=== PATIENT | female | born 1930 | race Caucasian/White ===

== ENCOUNTER 2021-07-31 18:09 | Inpatient (IN) ==
--- NOTE | 2021-07-31 19:11 | DR.DIZZY ---
HPI Time seen Time Seen by Provider: 07/31/21 19:04 PCP Primary Care Physician: sanjay clemens HPI Comment HPI Comment: Pt with ams as below; currently awake, alert, able to answer questions but was unable to get out of car by herself upon arrival; normally ambulatory with walker but has progressively worsened over the past three days and unable to get around by herself; reportedly fell earlier in the week which was unwitnessed but was found on the floor by bed the next morning; did well initially but slowly became less able to care for self at which time she was taken to [facility]; upon review of records from [facility], sodium 127 with bs wnl at discharge; doctor discussed NHP with family who chose not to do this; daughter took her to [facility] and she ate "just a little" but was still confused, so she brought her here. Complaint Chief Complaint:: AROUND 0900 THIS MORNING PT UNRESPONSIVE AND BLOOD SUGAR 65, EMS CALLED AND DOSE OF DEXTROSE SYRING GIVEN,WENT TO [facility] AND [facility] 31/2 HOURS OF NO REASSESSMENT, GRANDDAUGHTER ASK FOR BLOOD SUGAR RECHECK, IT WAS THEN 47, DOSE OF DEXTROSE GIVEN.WHEN BS ASSESSED IT WAS 47. ER DISCHARGED HER WITH HYPERTENSION.PT IS WEAK, NO REAL RESPONSIVENESS, SHE HAS BEEN RECENTLY TREATED FOR UTI SINCE MONDAY ON SULFAMETHOXAZOLE AND HAS SOME CONGESTION COVID-19 Coronavirus risk:travel/contact w/high risk person: No Source History Provided: Family Member Mode of Arrival Mode of Arrival: Wheelchair Timing Onset of Chief Complaint: 07/31/21 Context Stroke Symptoms: Acute confusion and Weakness of limb PMH PMH Past Medical History: Yes Past Medical History: Arthritis, Diabetes, Dyslipidemia, GERD and Hypertension Past Surgical History: No Family History History of Family Medical Conditions: Yes Family Medical History: Diabetes Mellitus, [place], Coronary Artery Disease and Hypertension Social History Do you use any recreational Drugs:: No Lives With: Family Lives Where: Home Travel Risk Coronavirus risk:travel/contact w/high risk person: No Infectious screening In the last 2 months have you had wt loss of >10#?: NO Have you had fever, night sweats or hemotysis?: No Have you traveled outside the country in the last 6 months?: No Isolation: Standard ROS Review of Systems Constitutional: No Symptoms Reported Eyes: No Symptoms Reported ENTM: No Symptoms Reported Respiratoy: No Symptoms Reported Cardiovascular: No Symptoms Reported Gastrointestinal/Abdominal: No Symptoms Reported Genitourinary: No Symptoms Reported Neurological: No Symptoms Reported Integumentary: No Symptoms Reported Hematologic/Lymphatic: No Symptoms Reported Endocrine: No Symptoms Reported PE Vital Signs Vitals: Temperature 98.1 F Pulse Rate 76 Respiratory Rate 18 Blood Pressure [Right Arm] 193/88 Blood Pressure 187/77 O2 Sat by Pulse Oximetry 98 General Limitations: No Limitations General Appearance: Alert and In No Apparent Distress Head Head Exam: Normal Inspection Eyes Eye exam: Normal Appearance ENT ENT Exam: Normal Exam, Normal Oropharynx and Normal External Ear Exam Neck Neck Exam: Normal Inspection and Full ROM Chest Chest Inspection: Normal Inspection Respiratory Respiratory Exam: Normal Lung Sounds Bilat Cardiovascular Cardiovascular Exam: Regular Rate and Normal Rhythm Abdominal Exam Abdominal Exam: Normal Inspection, Normal Bowel Sounds and Soft Rectal Rectal Exam: Deferred Extremeties Extremities Exam: Normal Inspection and Full ROM Back Back Exam: Normal Inspection and Full ROM Neurologic Neurological Exam: Alert and Oriented X3 (knows name, and "doctor's office") Psychiatric Psychiatric Exam: Normal Affect and Normal Mood Skin Skin Exam: Warm, Dry, Intact and Normal Color COURSE Reevaluation 1st: Improved (improved somewhat) 2nd: Worsened (confused about birthdate, location) Education/Counseling Education/Counseling: Family Educated On: Diagnosis and Prognosis ROR Labs Reviewed Laboratory Results Reviewed?: Yes Result Diagrams: 07/31/21 19:18 07/31/21 19:18 Laboratory: Sodium 127 mmol/L (136-145) L 07/31/21 19:18 Corrected Sodium 128 mmol/L (136-145) L 07/31/21 19:18 Potassium 4.7 mmol/L (3.5-5.1) 07/31/21 19:18 Chloride 92 mmol/L (98-107) L 07/31/21 19:18 Carbon Dioxide 26.4 mmol/L (21-32) 07/31/21 19:18 BUN 16 mg/dL (7-18) 07/31/21 19:18 Creatinine 1.28 mg/dL (0.55-1.02) H 07/31/21 19:18 Est GFR (MDRD) Af Amer 50 (>60) L 07/31/21 19:18 Est GFR (MDRD) Non-Af 42 (>60) L 07/31/21 19:18 Glucose 147 mg/dL (65-99) H 07/31/21 19:18 Calcium 8.5 mg/dL (8.5-10.1) 07/31/21 19:18 Creatine Kinase 363 Units/L (26-192) H 07/31/21 19:18 XRAY XRAY Interpreted by: Radiologist X-ray Results: brain ct: 1. Chronic microvascular ischemic disease, but no discernible acute infarction seen. 2. Severe atherosclerosis of the intracranial ICAs and vertebral arteries is seen. 3. No skull fracture, intracranial hemorrhage, mass lesion, midline shift, or hydrocephalus seen. 4. 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 5. Acute sphenoid and bilateral maxillary sinusitis marked by small air-fluid levels. Opioid Opioid Risk Tool Age (Doc box if 16-45): No History of Preadolescent Sexual Abuse: No Total: 0 Total Score Risk Category: Low Risk Copyright: [facility] predicting aberrant behaviors Diagnosis Discharge Problem: Acute hyponatremia, Weakness, Essential hypertension AMS (altered mental status) Qualifiers: Altered mental status type: disorientation Qualified Code(s): R41.0 - Disorientation, unspecified Pansinusitis Qualifiers: Chronicity: acute Recurrence: not specified as recurrent Qualified Code(s): J01.40 - Acute pansinusitis, unspecified Instructions Forms: [facility] Social Distancing
[2021-07-31 19:32] LABS: CALCIUM 8.5 mg/dL (8.5-10.1); CARBON DIOXIDE 26.4 mmol/L (21-32); CREATININE 1.28 mg/dL (0.55-1.02)
[2021-07-31] MEDS ORDERED: NS 1,000 ML IV 0 ML ONE (20:13)
[2021-07-31] MEDS ORDERED: NS 1,000 ML IV 1,000 ML ONE (20:17)
--- NOTE | 2021-07-31 20:30 | CT ---
EXAM: HEAD CT WITHOUT INTRAVENOUS CONTRASTHISTORY: Confusion. Congestion. Diabetes.TECHNIQUE: Spiral axial CT images are obtained through the brain without the administration of intravenous contrast. Additional sagittal and coronal reformatted images are reconstructed.DOSIMETRY: Total DLP 1364.9 mGycm; CTDI 70.8 mGyCOMPARISON: None available.FINDINGS:There are parenchymal lucencies within the periventricular white matter tracks of the centrum semiovale, consistent with chronic sequela of atherosclerotic microvascular ischemic disease. Severe atherosclerosis of the intracranial ICAs and vertebral arteries is seen.There is diffuse cerebral cortical atrophy. The centrum semiovale, basal ganglia, cerebellum, and brainstem are otherwise grossly unremarkable for a noncontrast CT scan. There is no acute intracranial hemorrhage, gross acute infarction, mass lesion, midline shift, or hydrocephalus seen. No extra-axial mass or abnormal fluid collection noted.The calvarium is intact. The middle ear cavities and mastoid air cells are clear. There is chronic tompkins paranasal sinusitis marked by mild mucoperiosteal thickening. There is acute sphenoid and bilateral maxillary sinusitis marked by small air-fluid levels.IMPRESSION:1. Chronic microvascular ischemic disease, but no discernible acute infarction seen.2. Severe atherosclerosis of the intracranial ICAs and vertebral arteries is seen.3. No skull fracture, intracranial hemorrhage, mass lesion, midline shift, or hydrocephalus seen.4. Chronic tompkins paranasal sinusitis marked by mild mucoperiosteal thickening.5. Acute sphenoid and bilateral maxillary sinusitis marked by small air-fluid levels.Electronically signed by: Rebekah Sanders (Jul 31, 2021 20:29:42)
[2021-07-31] MEDS ORDERED: ROCEPHIN VIAL 1 GRAM 1 G in NS 100 ML IV + SPIKE MINIBAG* 100 ML IV ONE (20:55)
[2021-07-31] MEDS ORDERED: ROCEPHIN 1 GRAM IV PREMIX 1 G/50 ML IV.SOLN. IV ONE (20:57)
[2021-07-31] MEDS ORDERED: NS 1,000 ML IV 1,000 ML IV SCH ×2 (21:00→22:00)
[2021-07-31] MEDS ORDERED: ROCEPHIN VIAL 1 GRAM 1 G in NS 100 ML IV + SPIKE MINIBAG* 100 ML IV SCH (21:03)
[2021-07-31] MEDS: NS 1,000 ML IV 1,000 ML IV SCH (23:46)
--- NOTE | 2021-08-01 01:05 | RAD ---
STUDY: FRONTAL VIEW CHESTCOMPARISON: NoneHISTORY: COVID-10+, DIMINISHED BREATH SOUNDSFINDINGS:Diffuse alveolar airspace disease is seen in the bilateral upper and left lower lung zone.The heart size is within normal limits.The mediastinum is unremarkable.There is no evidence of pleural effusion or gross pneumothorax.The trachea is midline.IMPRESSION:Diffuse alveolar airspace disease is seen in the bilateral upper and left lower lung zone. Given the patient's history of testing positive for COVID-19, this could represent COVID pneumonia.Electronically signed by: Christophe Walters (Aug 01, 2021 01:03:39)
[2021-08-01] MEDS ORDERED: GLUTOSE 15 GEL ORAL PO ONE (05:24)
[2021-08-01] MEDS ORDERED: GLUTOSE 15 GEL ORAL PO PRN (05:27)
[2021-08-01 06:18] LABS: BASOPHILS % (AUTO) 0.5 % (0.2-1.0); HEMATOCRIT 28.8 % (36.0-47.0); HEMOGLOBIN 10.4 g/dL (12.0-16.0); LYMPHOCYTES # (AUTO) 3.7 X10^3/uL (1.3-2.9); LYMPHOCYTES % (AUTO) 63.6 % (21.0-51.0); MEAN CORPUSCULAR HEMOGLOBIN 33.7 pg (27.0-34.0); MEAN CORPUSCULAR HGB CONC 36.2 g/dL (33.0-35.0); MEAN CORPUSCULAR VOLUME 93.1 fL (80.0-100.0); MEAN PLATELET VOLUME 7.6 fL (7.4-11.0); MONOCYTES # (AUTO) 0.5 x10^3/uL (0.3-0.8); MONOCYTES % (AUTO) 9.3 % (0.0-13.0); NEUTROPHILS # (AUTO) 1.5 x10^3/uL (2.2-4.8); NEUTROPHILS % (AUTO) 26.6 % (42.0-75.0); PLATELET COUNT 126 X10^3/uL (150.0-450.0); RED CELL DISTRIBUTION WIDTH 14.2 % (11.6-16.5); WHITE BLOOD COUNT 5.8 X10^3/uL (3.6-10.0)
[2021-08-01 06:33] LABS: ALANINE AMINOTRANSFERASE 23 Units/L (12-78); ALBUMIN 2.9 g/dL (3.4-5.0); ALKALINE PHOSPHATASE 54 Units/L (46-116); ASPARTATE AMINO TRANSFERASE 52 Units/L (15-37); BLOOD UREA NITROGEN 15 mg/dL (7-18); CALCIUM 7.9 mg/dL (8.5-10.1); CARBON DIOXIDE 24.6 mmol/L (21-32); CHLORIDE 96 mmol/L (98-107); COR CA(FOR HYPOALB) 8.8 mg/dL (8.5-10.1); CREATININE 1.21 mg/dL (0.55-1.02); SODIUM 130 mmol/L (136-145); TOTAL PROTEIN 5.3 g/dL (6.4-8.2); eGFR NON BLACK RACES 45 (>60)
[2021-08-01] MEDS: NS 1,000 ML IV 1,000 ML IV SCH ×2 (07:33→08:34)
[2021-08-01 07:37] LABS: PLATELET MORPHOLOGY COMMENT NORMAL (NORMAL); SMUDGE CELLS 2+
[2021-08-01] MEDS: BROVANA IN SCH ×2 (09:25→21:27)
[2021-08-01] MEDS: PULMICORT NEB TX 0.5 MG NEB SCH ×2 (09:25→21:27)
[2021-08-01] MEDS ORDERED: CALCIUM 300 MG PO SCH (10:15)
[2021-08-01] MEDS: LOPRESSOR TAB 50 MG PO SCH ×2 (10:38→20:22)
[2021-08-01] MEDS: MIRAPEX TAB 0.25 MG PO SCH ×3 (10:39→21:02)
[2021-08-01] MEDS: D5 NS 1,000 ML IV 1,000 ML IV SCH (11:21)
[2021-08-01] MEDS: ASCORBIC ACID INJ MULTI-DOSE VIAL 1,500 MG in NS 50 ML IV 50 ML IV SCH ×3 (12:30→20:21)
[2021-08-01] MEDS: ZOSYN VIAL 3.375 GRAMS 3.375 G in NS 100 ML IV + SPIKE MINIBAG* 100 ML IV SCH ×3 (13:16→21:02)
[2021-08-01] MEDS: SOLU-Medrol 40 MG VIAL IVP SCH ×2 (13:16→20:21)
[2021-08-01] MEDS: PEPCID 20 MG IV PREMIX* 20 MG/50 ML BAG IV SCH (13:16)
[2021-08-01] MEDS: DUONEB 0.5 MG/3 MG (3 mL) NEB SCH ×2 (14:00→21:27)
--- NOTE | 2021-08-01 19:29 | DR.H&P ---
H&P History & Physical for Day of: H&P Date: 08/01/21 Chief Complaint Chief Complaint: AMS, weakness Allergies Allergies Allergy/AdvReac Type Severity Reaction Status Date / Time No Known Drug Allergies Allergy Unverified 07/31/21 19:05 History of Present Illness History of Present Illness: Ms Mesa is a 89y/o female with a PMH of DM, HTN, HLD presented with AMS and weakness. Patient was seen in [place] [facility] earlier today for similar Sx and noted to have low Na. Patient had a fall few days prior and since then has been feeling weak and trouble ambulating. On admission, patient was not able to ambulate on her own and was dehydrated with Na 127 and glucose 65. Her CK was elevated at 363. CT-head did not show any acute stroke or bleed except tompkins sinusitis. Patient also tested positive for COVID-19. She is not requiring any supplemental O2. CXR consistent with COVID pneumonia. Patient was not able to swallow liquids this morning and has been unable to clear her throat. Patient was alert this morning and able to follow simple commands. Labs and imaging reviewed Plan: Continue COVID-19 protocol and ICU care. start D5 NS at 75cc/hr, change Rocephin to Zosyn. Add Solumedrol and Pepcid. Keep NPO. RT to suck secretions. Add Vitamin C. Speech evaluation in the AM. Will review records from [facility]. Monitor AM labs/imaging. Time spent for clinical assessment, reviewing labs/imaging, physical exam, decision making and documentation greater than 45 mins. Past Medical History Past Medical History: Arthritis, Diabetes, Dyslipidemia, GERD and Hypertension Family History Family Medical History: Cancer Social History Does patient currently use any type of tobacco product: No Have you used tobacco products in the last 12 months: No Type of Tobacco Use: None Does any household member use tobacco: No Alcohol Use: None Drug Use: None Prescription drug monitoring program results: PDMP reviewed and no concerns identified Medications Home Medications: No Known Drug Allergies Allergy (Unverified 07/31/21 19:05) CONTINUE taking the following medications amlodipine 5 mg PO QHS 07/31/21 [History] calcium 300 mg PO DAILY 07/31/21 [History] ferrous sulfate 325 mg PO DAILY 07/31/21 [History] lisinopril 40 mg PO QHS 07/31/21 [History] metoprolol tartrate 100 mg PO BID 07/31/21 [History] pramipexole 0.25 mg PO TID 07/31/21 [History] rivastigmine tartrate 3 mg PO BID 07/31/21 [History] simvastatin 20 mg PO QHS 07/31/21 [History] sulfamethoxazole-trimethoprim 1 tab PO BID 07/31/21 [History] Labs Result Diagrams: 08/01/21 05:51 08/01/21 05:51 Labs: Laboratory WBC 5.8 X10^3/uL (3.6-10.0) 08/01/21 05:51 RBC 3.10 X10^6/uL (3.5-5.4) L 08/01/21 05:51 Hgb 10.4 g/dL (12.0-16.0) L 08/01/21 05:51 Hct 28.8 % (36.0-47.0) L 08/01/21 05:51 MCV 93.1 fL (80.0-100.0) 08/01/21 05:51 MCH 33.7 pg (27.0-34.0) 08/01/21 05:51 MCHC 36.2 g/dL (33.0-35.0) H 08/01/21 05:51 RDW 14.2 % (11.6-16.5) 08/01/21 05:51 Plt Count 126 X10^3/uL (150.0-450.0) L 08/01/21 05:51 Plt Count Comment Decreased (ADEQUATE) A 08/01/21 05:51 MPV 7.6 fL (7.4-11.0) 08/01/21 05:51 Neut % (Auto) 26.6 % (42.0-75.0) L 08/01/21 05:51 Lymph % (Auto) 63.6 % (21.0-51.0) H 08/01/21 05:51 [place] % (Auto) 9.3 % (0.0-13.0) 08/01/21 05:51 Eos % (Auto) 0.0 % (0.9-2.9) L 08/01/21 05:51 Baso % (Auto) 0.5 % (0.2-1.0) 08/01/21 05:51 Neut # (Auto) 1.5 x10^3/uL (2.2-4.8) L 08/01/21 05:51 Lymph # (Auto) 3.7 X10^3/uL (1.3-2.9) H 08/01/21 05:51 [place] # (Auto) 0.5 x10^3/uL (0.3-0.8) 08/01/21 05:51 Eos # (Auto) 0.0 x10^3/uL (0.0-0.2) 08/01/21 05:51 Baso # (Auto) 0.0 X10^3/uL (0.0-0.1) 08/01/21 05:51 Absolute Nucleated RBC 0.1 /100WBC 08/01/21 05:51 Total Counted 100 08/01/21 05:51 Neutrophils % (Manual) 30 % (39-76) L 08/01/21 05:51 Lymphocytes % (Manual) 62 % (13-43) H 08/01/21 05:51 Monocytes % (Manual) 8 % (4-9) 08/01/21 05:51 Smudge Cells 2+ A 08/01/21 05:51 Plt Morphology Comment Normal (NORMAL) 08/01/21 05:51 RBC Morphology Normal (NORMAL) 08/01/21 05:51 Sodium 130 mmol/L (136-145) L 08/01/21 05:51 Corrected Sodium TNP 08/01/21 05:51 Potassium 4.5 mmol/L (3.5-5.1) 08/01/21 05:51 Chloride 96 mmol/L (98-107) L 08/01/21 05:51 Carbon Dioxide 24.6 mmol/L (21-32) 08/01/21 05:51 BUN 15 mg/dL (7-18) 08/01/21 05:51 Creatinine 1.21 mg/dL (0.55-1.02) H 08/01/21 05:51 Est GFR (MDRD) Af Amer 54 (>60) L 08/01/21 05:51 Est GFR (MDRD) Non-Af 45 (>60) L 08/01/21 05:51 Glucose 79 mg/dL (65-99) 08/01/21 05:51 POC Glucose (mg/dL) 146 mg/dL (65-99) H 08/01/21 16:46 Calcium 7.9 mg/dL (8.5-10.1) L 08/01/21 05:51 Corrected Calcium 8.8 mg/dL (8.5-10.1) 08/01/21 05:51 Total Bilirubin 0.50 mg/dL (0.2-1.0) 08/01/21 05:51 AST 52 Units/L (15-37) H 08/01/21 05:51 ALT 23 Units/L (12-78) 08/01/21 05:51 Alkaline Phosphatase 54 Units/L (46-116) 08/01/21 05:51 Creatine Kinase 363 Units/L (26-192) H 07/31/21 19:18 Total Protein 5.3 g/dL (6.4-8.2) L 08/01/21 05:51 Albumin 2.9 g/dL (3.4-5.0) L 08/01/21 05:51 Globulin 2.4 g/dL (2.5-4.5) L 08/01/21 05:51 Albumin/Globulin Ratio 1.2 Ratio (1.1-2.1) 08/01/21 05:51 SARS CoV-2 RNA Rapid MARA Positive (NEGATIVE) A 07/31/21 21:10 Review of Systems Constitutional: Weakness and Malaise Eyes: No Symptoms Reported ENT: No Symptoms Reported Respiratory: Cough Cardiovascular: No Symptoms Reported Gastrointestinal: No Symptoms Reported Genitourinary: No Symptoms Reported Musculoskeletal: No Symptoms Reported Skin: No Symptoms Reported Neurological: Weakness, Incoordination and Confusion Physical Exam Vital Signs: Temperature 98.8 F Pulse Rate [Left Radial] 79 Pulse Rate 89 Respiratory Rate 28 Blood Pressure [Left Arm] 159/69 Blood Pressure [Right Arm] 156/68 Blood Pressure 134/60 O2 Sat by Pulse Oximetry 93 Oriented: Person and Place Eyes: Normal Ear: Normal Nose: Normal Throat: Dry and Other (gurgling sound ) Respiratory: Diminished Throughout Cardiovascular: Normal Auscultation: Bowel Sounds: Normal Palpation: Normal Tenderness: Normal Skin: Decreased [place] Psychiatric: Normal Mood Description: Calm Affect: Normal Speech Pattern: Unclear and Delayed Assessment/Plan (1) Acute hyponatremia: Status: Acute (2) AMS (altered mental status): Qualifiers: Altered mental status type: disorientation Qualified Code(s): R41.0 - Disorientation, unspecified Status: Acute (3) Weakness: Status: Acute (4) COVID-19: Status: Acute (5) Pansinusitis: Qualifiers: Chronicity: acute Recurrence: not specified as recurrent Qualified Code(s): J01.40 - Acute pansinusitis, unspecified Status: Acute (6) Hypoglycemia: Status: Acute (7) Dysphagia: Qualifiers: Dysphagia type: unspecified Qualified Code(s): R13.10 - Dysphagia, unspecified Status: Acute (8) Fall: Qualifiers: Encounter type: sequela Qualified Code(s): W19.XXXS - Unspecified fall, sequela Status: Acute (9) Dehydration: Status: Acute Review H&P Reviewed: Yes Patient was examined?: Yes
[2021-08-01] MEDS: EXELON PO SCH (20:21)
[2021-08-01] MEDS: ZOCOR TAB 20 MG PO SCH (20:21)
[2021-08-01] MEDS: NORVASC TAB 5 MG PO SCH (20:22)
[2021-08-01] MEDS: LOVENOX INJ 30 MG SYR SC SCH (20:22)
[2021-08-01] MEDS ORDERED: ROCEPHIN VIAL 1 GRAM 1 G in NS 100 ML IV + SPIKE MINIBAG* 100 ML IV SCH (21:00)
[2021-08-02] MEDS: D5 NS 1,000 ML IV 1,000 ML IV SCH ×2 (00:03→13:19)
[2021-08-02] MEDS: ASCORBIC ACID INJ MULTI-DOSE VIAL 1,500 MG in NS 50 ML IV 50 ML IV SCH ×4 (03:14→20:29)
[2021-08-02] MEDS: MIRAPEX TAB 0.25 MG PO SCH ×3 (05:05→21:30)
[2021-08-02] MEDS: ZOSYN VIAL 3.375 GRAMS 3.375 G in NS 100 ML IV + SPIKE MINIBAG* 100 ML IV SCH ×3 (05:05→21:30)
[2021-08-02 05:09] LABS: BASOPHILS % (AUTO) 0.1 % (0.2-1.0); HEMATOCRIT 29.3 % (36.0-47.0); HEMOGLOBIN 10.3 g/dL (12.0-16.0); LYMPHOCYTES % (AUTO) 36.8 % (21.0-51.0); MEAN CORPUSCULAR HEMOGLOBIN 33.3 pg (27.0-34.0); MEAN CORPUSCULAR HGB CONC 35.2 g/dL (33.0-35.0); MEAN CORPUSCULAR VOLUME 94.6 fL (80.0-100.0); MEAN PLATELET VOLUME 8.2 fL (7.4-11.0); MONOCYTES # (AUTO) 0.1 x10^3/uL (0.3-0.8); NEUTROPHILS # (AUTO) 1.5 x10^3/uL (2.2-4.8); NEUTROPHILS % (AUTO) 59.1 % (42.0-75.0); PLATELET COUNT 125 X10^3/uL (150.0-450.0); RED BLOOD COUNT 3.09 X10^6/uL (3.5-5.4); RED CELL DISTRIBUTION WIDTH 14.1 % (11.6-16.5); WHITE BLOOD COUNT 2.6 X10^3/uL (3.6-10.0)
[2021-08-02 05:15] LABS: BILIRUBIN,URINE NEGATIVE (NEGATIVE); BLOOD/HEMOGLOBIN,URINE NEGATIVE (NEGATIVE); GLUCOSE, URINE 3+ (NEGATIVE); KETONES,URINE 1+ (NEGATIVE); LEUKOCYTE ESTERASE ,URINE NEGATIVE (NEGATIVE); NITRITES,URINE NEGATIVE (NEGATIVE); PROTEIN,URINE 1+ (NEGATIVE); UROBILINOGEN,URINE NORMAL (NORMAL)
[2021-08-02] MEDS: DUONEB 0.5 MG/3 MG (3 mL) NEB SCH ×3 (05:18→20:20)
[2021-08-02 05:22] LABS: AMORPHOUS SEDIMENT,UR 1+ /HPF (NEGATIVE); APPEARANCE,URINE CLEAR (CLEAR); BACTERIA,URINE TRACE /HPF (NEGATIVE); COLOR,URINE PALE YELLOW (YELLOW); RBC,URINE NONE SEEN /HPF (0-3); SQUAMOUS EPITHELIAL CELL,UR RARE /HPF (NEGATIVE)
[2021-08-02 05:24] LABS: ALBUMIN 2.8 g/dL (3.4-5.0); CALCIUM 8.1 mg/dL (8.5-10.1); CARBON DIOXIDE 21.2 mmol/L (21-32); COR CA(FOR HYPOALB) 9.1 mg/dL (8.5-10.1); CREATININE 1.42 mg/dL (0.55-1.02); TOTAL PROTEIN 5.4 g/dL (6.4-8.2)
[2021-08-02] MEDS: NovoLIN R (or HumuLIN R) SUBCUT PRN ×4 (05:54→20:31)
[2021-08-02] MEDS: EXELON PO SCH ×2 (08:02→20:29)
[2021-08-02] MEDS: CITRACAL + VITAMIN D PO SCH (08:02)
[2021-08-02] MEDS: ASPIRIN EC 81 MG PO SCH (08:02)
[2021-08-02] MEDS: SOLU-Medrol 40 MG VIAL IVP SCH (08:03)
[2021-08-02] MEDS: LOVENOX INJ 30 MG SYR SC SCH ×2 (08:03→08:24)
[2021-08-02] MEDS: PEPCID 20 MG IV PREMIX* 20 MG/50 ML BAG IV SCH (08:03)
[2021-08-02] MEDS: FERROUS GLUCONATE PO SCH (08:03)
[2021-08-02] MEDS: LOPRESSOR TAB 50 MG PO SCH ×2 (08:03→20:30)
[2021-08-02] MEDS: BROVANA IN SCH ×2 (08:15→20:20)
[2021-08-02] MEDS: PULMICORT NEB TX 0.5 MG NEB SCH ×2 (08:15→20:20)
--- NOTE | 2021-08-02 14:50 | PCM.PROG ---
Progress Note Progress Note for Day of Date of Exam: 08/02/21 Subjective Subjective: Patient seen at bedside, no events overnight. Patient is more awake and alert this morning. She is able to answer direct questions and follow simple commands. Her FSBG was 405 this AM, SSI insulin was added. She still has intermittent confusion. Patient is on room air. Labs reviewed Plan: Speech therapy pending, add PT/OT. Will decrease D5 NS to 50cc/hr, DC solumedrol. Continue IV Zosyn and nebs. Patient remains on room air. Continue ICU protocol for COVID-19. Continue Vitamin C. Continue SSI. Monitor AM labs/imaging. Time spent for clinical assessment, reviewing labs/imaging, physical exam, decision making and documentation greater than 45 mins. Past Medical Family Social History Past Med/Fam/Surg Hx: No changes since H&P Allergies: Allergies No Known Drug Allergies Allergy (Unverified 07/31/21 19:05) Review of Systems ROS: No change since H&P Vital Signs and I&O's Vital Signs: Temperature 98.3 F Pulse Rate [Left Radial] 79 Pulse Rate 110 Respiratory Rate 43 Blood Pressure [Left Arm] 159/69 Blood Pressure [Right Arm] 156/68 Blood Pressure 138/102 O2 Sat by Pulse Oximetry 97 Intake and Output: Intake & Output 07/30/21 07/31/21 08/01/21 08/02/21 23:59 23:59 23:59 23:59 Intake Total 300 / 300 3113 / 3113 700 / 700 Balance 300 / 300 3113 / 3113 700 / 700 Physical Exam Oriented: Person and Place Eyes: Normal Ear: Normal Nose: Normal Throat: Normal Respiratory: Generalized and Diminished Cardiovascular: Normal Auscultation: Bowel Sounds: Normal Tenderness: Normal Skin: Decreased Turgur Psychiatric: Normal Mood Description: Calm Affect: Normal Speech Pattern: Delayed Laboratory and Diagnostics Result Diagrams: 08/02/21 04:11 08/02/21 04:11 Labs: Laboratory WBC 2.6 X10^3/uL (3.6-10.0) L 08/02/21 04:11 RBC 3.09 X10^6/uL (3.5-5.4) L 08/02/21 04:11 Hgb 10.3 g/dL (12.0-16.0) L 08/02/21 04:11 Hct 29.3 % (36.0-47.0) L 08/02/21 04:11 MCV 94.6 fL (80.0-100.0) 08/02/21 04:11 MCH 33.3 pg (27.0-34.0) 08/02/21 04:11 MCHC 35.2 g/dL (33.0-35.0) H 08/02/21 04:11 RDW 14.1 % (11.6-16.5) 08/02/21 04:11 Plt Count 125 X10^3/uL (150.0-450.0) L 08/02/21 04:11 Plt Count Comment Decreased (ADEQUATE) A 08/01/21 05:51 MPV 8.2 fL (7.4-11.0) 08/02/21 04:11 Neut % (Auto) 59.1 % (42.0-75.0) 08/02/21 04:11 Lymph % (Auto) 36.8 % (21.0-51.0) 08/02/21 04:11 [place] % (Auto) 4.0 % (0.0-13.0) 08/02/21 04:11 Eos % (Auto) 0.0 % (0.9-2.9) L 08/02/21 04:11 Baso % (Auto) 0.1 % (0.2-1.0) L 08/02/21 04:11 Neut # (Auto) 1.5 x10^3/uL (2.2-4.8) L 08/02/21 04:11 Lymph # (Auto) 1.0 X10^3/uL (1.3-2.9) L 08/02/21 04:11 [place] # (Auto) 0.1 x10^3/uL (0.3-0.8) L 08/02/21 04:11 Eos # (Auto) 0.0 x10^3/uL (0.0-0.2) 08/02/21 04:11 Baso # (Auto) 0.0 X10^3/uL (0.0-0.1) 08/02/21 04:11 Absolute Nucleated RBC 0.2 /100WBC 08/02/21 04:11 Total Counted 100 08/01/21 05:51 Neutrophils % (Manual) 30 % (39-76) L 08/01/21 05:51 Lymphocytes % (Manual) 62 % (13-43) H 08/01/21 05:51 Monocytes % (Manual) 8 % (4-9) 08/01/21 05:51 Smudge Cells 2+ A 08/01/21 05:51 Plt Morphology Comment Normal (NORMAL) 08/01/21 05:51 RBC Morphology Normal (NORMAL) 08/01/21 05:51 Sodium 133 mmol/L (136-145) L 08/02/21 04:11 Corrected Sodium 140 mmol/L (136-145) 08/02/21 04:11 Potassium 4.5 mmol/L (3.5-5.1) 08/02/21 04:11 Chloride 99 mmol/L (98-107) 08/02/21 04:11 Carbon Dioxide 21.2 mmol/L (21-32) 08/02/21 04:11 BUN 23 mg/dL (7-18) H 08/02/21 04:11 Creatinine 1.42 mg/dL (0.55-1.02) H 08/02/21 04:11 Est GFR (MDRD) Af Amer 45 (>60) L 08/02/21 04:11 Est GFR (MDRD) Non-Af 37 (>60) L 08/02/21 04:11 Glucose 405 mg/dL (65-99) H 08/02/21 04:11 POC Glucose (mg/dL) 306 mg/dL (65-99) H 08/02/21 11:36 Calcium 8.1 mg/dL (8.5-10.1) L 08/02/21 04:11 Corrected Calcium 9.1 mg/dL (8.5-10.1) 08/02/21 04:11 Total Bilirubin 0.60 mg/dL (0.2-1.0) 08/02/21 04:11 AST 48 Units/L (15-37) H 08/02/21 04:11 ALT 25 Units/L (12-78) 08/02/21 04:11 Alkaline Phosphatase 53 Units/L (46-116) 08/02/21 04:11 Creatine Kinase 363 Units/L (26-192) H 07/31/21 19:18 Total Protein 5.4 g/dL (6.4-8.2) L 08/02/21 04:11 Albumin 2.8 g/dL (3.4-5.0) L 08/02/21 04:11 Globulin 2.6 g/dL (2.5-4.5) 08/02/21 04:11 Albumin/Globulin Ratio 1.1 Ratio (1.1-2.1) 08/02/21 04:11 Specimen Type Catherized urine 08/02/21 05:00 Urine Color Pale yellow (YELLOW) 08/02/21 05:00 Urine Appearance Clear (CLEAR) 08/02/21 05:00 Urine pH 5.0 (5.0 - 8.0) 08/02/21 05:00 Ur Specific [place] 1.020 (1.000-1.030) 08/02/21 05:00 Urine Protein 1+ (NEGATIVE) 08/02/21 05:00 Urine Glucose (UA) 3+ (NEGATIVE) 08/02/21 05:00 Urine Ketones 1+ (NEGATIVE) 08/02/21 05:00 Urine Occult Blood Negative (NEGATIVE) 08/02/21 05:00 Urine Nitrite Negative (NEGATIVE) 08/02/21 05:00 Urine Bilirubin Negative (NEGATIVE) 08/02/21 05:00 Urine Urobilinogen Normal (NORMAL) 08/02/21 05:00 Ur Leukocyte Esterase Negative (NEGATIVE) 08/02/21 05:00 Urine RBC None seen /HPF (0-3) 08/02/21 05:00 Urine WBC None seen /HPF (0-5) 08/02/21 05:00 Ur Squamous Epith Cells Rare /HPF (NEGATIVE) 08/02/21 05:00 Amorphous Sediment 1+ /HPF (NEGATIVE) 08/02/21 05:00 Urine Bacteria Trace /HPF (NEGATIVE) 08/02/21 05:00 Ur Culture Indicated? No/not indicated 08/02/21 05:00 SARS CoV-2 RNA Rapid MARA Positive (NEGATIVE) A 07/31/21 21:10 Plan (1) Acute hyponatremia: Status: Acute (2) AMS (altered mental status): Status: Acute Qualifiers: Altered mental status type: disorientation Qualified Code(s): R41.0 - Disorientation, unspecified (3) Weakness: Status: Acute (4) COVID-19: Status: Acute (5) Pansinusitis: Status: Acute Qualifiers: Chronicity: acute Recurrence: not specified as recurrent Qualified Code(s): J01.40 - Acute pansinusitis, unspecified (6) Hypoglycemia: Status: Acute (7) Dysphagia: Status: Acute Qualifiers: Dysphagia type: unspecified Qualified Code(s): R13.10 - Dysphagia, unspecified (8) Fall: Status: Acute Qualifiers: Encounter type: sequela Qualified Code(s): W19.XXXS - Unspecified fall, sequela (9) Dehydration: Status: Acute
[2021-08-02] MEDS ORDERED: NS 50 ML IV 50 ML IV ONE (19:33)
[2021-08-02] MEDS: SNACK - Diabetic Appropriate PO SCH (20:20)
[2021-08-02] MEDS: NORVASC TAB 5 MG PO SCH (20:31)
[2021-08-02] MEDS: ZOCOR TAB 20 MG PO SCH (20:31)
[2021-08-03] MEDS ORDERED: RESTORIL CAP 15 MG PO PRN (00:28)
[2021-08-03] MEDS ORDERED: RESTORIL CAP 15 MG PO ONE (00:30)
[2021-08-03] MEDS: D5 NS 1,000 ML IV 1,000 ML IV SCH ×3 (02:22→22:35)
[2021-08-03] MEDS: ASCORBIC ACID INJ MULTI-DOSE VIAL 1,500 MG in NS 50 ML IV 50 ML IV SCH ×4 (04:00→20:14)
[2021-08-03 04:46] LABS: BLOOD UREA NITROGEN 20 mg/dL (7-18); CALCIUM 8.8 mg/dL (8.5-10.1); CARBON DIOXIDE 24.3 mmol/L (21-32); CHLORIDE 104 mmol/L (98-107); CREATININE 1.21 mg/dL (0.55-1.02); SODIUM 140 mmol/L (136-145); eGFR NON BLACK RACES 45 (>60)
[2021-08-03 04:58] LABS: BASOPHILS % (AUTO) 0.1 % (0.2-1.0); HEMATOCRIT 33.8 % (36.0-47.0); HEMOGLOBIN 11.8 g/dL (12.0-16.0); LYMPHOCYTES # (AUTO) 1.2 X10^3/uL (1.3-2.9); LYMPHOCYTES % (AUTO) 14.9 % (21.0-51.0); MEAN CORPUSCULAR HEMOGLOBIN 32.6 pg (27.0-34.0); MEAN CORPUSCULAR HGB CONC 35.1 g/dL (33.0-35.0); MEAN CORPUSCULAR VOLUME 92.9 fL (80.0-100.0); MEAN PLATELET VOLUME 7.5 fL (7.4-11.0); MONOCYTES # (AUTO) 0.4 x10^3/uL (0.3-0.8); MONOCYTES % (AUTO) 4.8 % (0.0-13.0); NEUTROPHILS # (AUTO) 6.3 x10^3/uL (2.2-4.8); NEUTROPHILS % (AUTO) 80.2 % (42.0-75.0); PLATELET COUNT 181 X10^3/uL (150.0-450.0); RED BLOOD COUNT 3.64 X10^6/uL (3.5-5.4); RED CELL DISTRIBUTION WIDTH 14.2 % (11.6-16.5); WHITE BLOOD COUNT 7.8 X10^3/uL (3.6-10.0)
[2021-08-03] MEDS: DUONEB 0.5 MG/3 MG (3 mL) NEB SCH ×3 (05:00→20:43)
[2021-08-03] MEDS: MIRAPEX TAB 0.25 MG PO SCH ×3 (05:36→22:34)
[2021-08-03] MEDS: ZOSYN VIAL 3.375 GRAMS 3.375 G in NS 100 ML IV + SPIKE MINIBAG* 100 ML IV SCH ×3 (05:37→22:33)
[2021-08-03] MEDS: ASPIRIN EC 81 MG PO SCH (09:15)
[2021-08-03] MEDS: LOPRESSOR TAB 50 MG PO SCH ×2 (09:15→20:17)
[2021-08-03] MEDS: CITRACAL + VITAMIN D PO SCH (09:15)
[2021-08-03] MEDS: EXELON PO SCH ×2 (09:15→20:16)
[2021-08-03] MEDS: PEPCID 20 MG IV PREMIX* 20 MG/50 ML BAG IV SCH (09:15)
[2021-08-03] MEDS: FERROUS GLUCONATE PO SCH (09:15)
[2021-08-03] MEDS: PULMICORT NEB TX 0.5 MG NEB SCH ×2 (10:18→20:43)
[2021-08-03] MEDS: BROVANA IN SCH ×2 (10:18→20:43)
[2021-08-03] MEDS: LOVENOX INJ 30 MG SYR SC SCH (11:29)
[2021-08-03] MEDS: NovoLIN R (or HumuLIN R) SUBCUT PRN ×2 (11:51→16:50)
--- NOTE | 2021-08-03 11:56 | PCM.PROG ---
Progress Note Progress Note for Day of Date of Exam: 08/03/21 Subjective Subjective: Patient seen at bedside, no events overnight. She is awake wand oriented to self. Patient able to answer some questions and follow very simple commands. She was seen by Speech therapy and recommended pureed diet. She did work with PT/OT yesterday. CM has been in touch with patient's son and looking into rehab placement. Due to patient being positive for COVID, she would have to continue with isolation for a total of 10 days and needs neg test prior to [facility] to [facility]. Patient is still weak and not able to ambulate. She remains on room air. Labs reviewed Plan: continue pureed diet. MRI brain pending. Continue D5 NS 50cc/hr. Continue IV Zosyn and nebs. Patient remains on room air. Continue ICU protocol for COVID- 19. Continue Vitamin C. Continue SSI. Continue PT/OT. Monitor AM labs/imaging. Time spent for clinical assessment, reviewing labs/imaging, physical exam, decision making and documentation greater than 45 mins. Past Medical Family Social History Past Med/Fam/Surg Hx: No changes since H&P Allergies: Allergies No Known Drug Allergies Allergy (Unverified 07/31/21 19:05) Review of Systems ROS: No change since H&P Vital Signs and I&O's Vital Signs: Temperature 99.4 F Pulse Rate [Left Radial] 79 Pulse Rate 99 Respiratory Rate 38 Blood Pressure [Left Arm] 159/69 Blood Pressure [Right Arm] 156/68 Blood Pressure 161/68 O2 Sat by Pulse Oximetry 97 Intake and Output: Intake & Output 07/31/21 08/01/21 08/02/21 08/03/21 23:59 23:59 23:59 23:59 Intake Total 300 / 300 3113 / 3113 1946 521 / 521 Balance 300 / 300 3113 / 3113 1946 521 / 521 Physical Exam Oriented: Person and Place Eyes: Normal Ear: Normal Nose: Normal Throat: Normal Respiratory: Generalized and Diminished Cardiovascular: Normal Auscultation: Bowel Sounds: Normal Tenderness: Normal Skin: Decreased Turgur Psychiatric: Normal Mood Description: Calm Affect: Normal Speech Pattern: Clear and Delayed Laboratory and Diagnostics Result Diagrams: 08/03/21 04:04 08/03/21 04:04 Labs: Laboratory WBC 7.8 X10^3/uL (3.6-10.0) 08/03/21 04:04 RBC 3.64 X10^6/uL (3.5-5.4) 08/03/21 04:04 Hgb 11.8 g/dL (12.0-16.0) L 08/03/21 04:04 Hct 33.8 % (36.0-47.0) L 08/03/21 04:04 MCV 92.9 fL (80.0-100.0) 08/03/21 04:04 MCH 32.6 pg (27.0-34.0) 08/03/21 04:04 MCHC 35.1 g/dL (33.0-35.0) H 08/03/21 04:04 RDW 14.2 % (11.6-16.5) 08/03/21 04:04 Plt Count 181 X10^3/uL (150.0-450.0) 08/03/21 04:04 Plt Count Comment Decreased (ADEQUATE) A 08/01/21 05:51 MPV 7.5 fL (7.4-11.0) 08/03/21 04:04 Neut % (Auto) 80.2 % (42.0-75.0) H 08/03/21 04:04 Lymph % (Auto) 14.9 % (21.0-51.0) L 08/03/21 04:04 [place] % (Auto) 4.8 % (0.0-13.0) 08/03/21 04:04 Eos % (Auto) 0.0 % (0.9-2.9) L 08/03/21 04:04 Baso % (Auto) 0.1 % (0.2-1.0) L 08/03/21 04:04 Neut # (Auto) 6.3 x10^3/uL (2.2-4.8) H 08/03/21 04:04 Lymph # (Auto) 1.2 X10^3/uL (1.3-2.9) L 08/03/21 04:04 [place] # (Auto) 0.4 x10^3/uL (0.3-0.8) 08/03/21 04:04 Eos # (Auto) 0.0 x10^3/uL (0.0-0.2) 08/03/21 04:04 Baso # (Auto) 0.0 X10^3/uL (0.0-0.1) 08/03/21 04:04 Absolute Nucleated RBC 0.1 /100WBC 08/03/21 04:04 Total Counted 100 08/01/21 05:51 Neutrophils % (Manual) 30 % (39-76) L 08/01/21 05:51 Lymphocytes % (Manual) 62 % (13-43) H 08/01/21 05:51 Monocytes % (Manual) 8 % (4-9) 08/01/21 05:51 Smudge Cells 2+ A 08/01/21 05:51 Plt Morphology Comment Normal (NORMAL) 08/01/21 05:51 RBC Morphology Normal (NORMAL) 08/01/21 05:51 Sodium 140 mmol/L (136-145) 08/03/21 04:04 Corrected Sodium TNP 08/03/21 04:04 Potassium 4.0 mmol/L (3.5-5.1) 08/03/21 04:04 Chloride 104 mmol/L (98-107) 08/03/21 04:04 Carbon Dioxide 24.3 mmol/L (21-32) 08/03/21 04:04 BUN 20 mg/dL (7-18) H 08/03/21 04:04 Creatinine 1.21 mg/dL (0.55-1.02) H 08/03/21 04:04 Est GFR (MDRD) Af Amer 54 (>60) L 08/03/21 04:04 Est GFR (MDRD) Non-Af 45 (>60) L 08/03/21 04:04 Glucose 90 mg/dL (65-99) 08/03/21 04:04 POC Glucose (mg/dL) 309 mg/dL (65-99) H 08/03/21 11:23 Calcium 8.8 mg/dL (8.5-10.1) 08/03/21 04:04 Corrected Calcium 9.1 mg/dL (8.5-10.1) 08/02/21 04:11 Total Bilirubin 0.60 mg/dL (0.2-1.0) 08/02/21 04:11 AST 48 Units/L (15-37) H 08/02/21 04:11 ALT 25 Units/L (12-78) 08/02/21 04:11 Alkaline Phosphatase 53 Units/L (46-116) 08/02/21 04:11 Creatine Kinase 363 Units/L (26-192) H 07/31/21 19:18 Total Protein 5.4 g/dL (6.4-8.2) L 08/02/21 04:11 Albumin 2.8 g/dL (3.4-5.0) L 08/02/21 04:11 Globulin 2.6 g/dL (2.5-4.5) 08/02/21 04:11 Albumin/Globulin Ratio 1.1 Ratio (1.1-2.1) 08/02/21 04:11 Specimen Type Catherized urine 08/02/21 05:00 Urine Color Pale yellow (YELLOW) 08/02/21 05:00 Urine Appearance Clear (CLEAR) 08/02/21 05:00 Urine pH 5.0 (5.0 - 8.0) 08/02/21 05:00 Ur Specific [place] 1.020 (1.000-1.030) 08/02/21 05:00 Urine Protein 1+ (NEGATIVE) 08/02/21 05:00 Urine Glucose (UA) 3+ (NEGATIVE) 08/02/21 05:00 Urine Ketones 1+ (NEGATIVE) 08/02/21 05:00 Urine Occult Blood Negative (NEGATIVE) 08/02/21 05:00 Urine Nitrite Negative (NEGATIVE) 08/02/21 05:00 Urine Bilirubin Negative (NEGATIVE) 08/02/21 05:00 Urine Urobilinogen Normal (NORMAL) 08/02/21 05:00 Ur Leukocyte Esterase Negative (NEGATIVE) 08/02/21 05:00 Urine RBC None seen /HPF (0-3) 08/02/21 05:00 Urine WBC None seen /HPF (0-5) 08/02/21 05:00 Ur Squamous Epith Cells Rare /HPF (NEGATIVE) 08/02/21 05:00 Amorphous Sediment 1+ /HPF (NEGATIVE) 08/02/21 05:00 Urine Bacteria Trace /HPF (NEGATIVE) 08/02/21 05:00 Ur Culture Indicated? No/not indicated 08/02/21 05:00 SARS CoV-2 RNA Rapid MARA Positive (NEGATIVE) A 07/31/21 21:10 Plan (1) Acute hyponatremia: Status: Acute (2) AMS (altered mental status): Status: Acute Qualifiers: Altered mental status type: disorientation Qualified Code(s): R41.0 - Disorientation, unspecified (3) Weakness: Status: Acute (4) COVID-19: Status: Acute (5) Pansinusitis: Status: Acute Qualifiers: Chronicity: acute Recurrence: not specified as recurrent Qualified Code(s): J01.40 - Acute pansinusitis, unspecified (6) Hypoglycemia: Status: Acute (7) Dysphagia: Status: Acute Qualifiers: Dysphagia type: unspecified Qualified Code(s): R13.10 - Dysphagia, unspecified (8) Fall: Status: Acute Qualifiers: Encounter type: sequela Qualified Code(s): W19.XXXS - Unspecified fall, sequela (9) Dehydration: Status: Acute
[2021-08-03] MEDS ORDERED: TYLENOL SUPP 650 MG ONE (19:43)
[2021-08-03] MEDS: TYLENOL SUPP 650 MG PR PRN (19:55)
[2021-08-03] MEDS ORDERED: APRESOLINE INJ 20 MG VIAL ONE (20:02)
[2021-08-03] MEDS: APRESOLINE INJ 20 MG VIAL IVP PRN (20:13)
[2021-08-03] MEDS: ZOCOR TAB 20 MG PO SCH (20:17)
[2021-08-03] MEDS: NORVASC TAB 5 MG PO SCH (20:18)
[2021-08-03] MEDS: SNACK - Diabetic Appropriate PO SCH (20:18)
[2021-08-04] MEDS: ASCORBIC ACID INJ MULTI-DOSE VIAL 1,500 MG in NS 50 ML IV 50 ML IV SCH ×4 (03:42→20:28)
[2021-08-04] MEDS: D5 NS 1,000 ML IV 1,000 ML IV SCH ×2 (04:30→17:41)
[2021-08-04 04:56] LABS: BASOPHILS % (AUTO) 0.1 % (0.2-1.0); HEMATOCRIT 28.4 % (36.0-47.0); LYMPHOCYTES # (AUTO) 1.3 X10^3/uL (1.3-2.9); LYMPHOCYTES % (AUTO) 28.7 % (21.0-51.0); MEAN CORPUSCULAR HEMOGLOBIN 32.9 pg (27.0-34.0); MEAN CORPUSCULAR HGB CONC 35.1 g/dL (33.0-35.0); MEAN CORPUSCULAR VOLUME 93.7 fL (80.0-100.0); MEAN PLATELET VOLUME 7.8 fL (7.4-11.0); MONOCYTES # (AUTO) 0.2 x10^3/uL (0.3-0.8); MONOCYTES % (AUTO) 4.2 % (0.0-13.0); NEUTROPHILS # (AUTO) 3.1 x10^3/uL (2.2-4.8); PLATELET COUNT 141 X10^3/uL (150.0-450.0); RED BLOOD COUNT 3.04 X10^6/uL (3.5-5.4); RED CELL DISTRIBUTION WIDTH 14.1 % (11.6-16.5); WHITE BLOOD COUNT 4.7 X10^3/uL (3.6-10.0)
[2021-08-04 05:05] LABS: ALBUMIN 2.6 g/dL (3.4-5.0); CALCIUM 8.3 mg/dL (8.5-10.1); COR CA(FOR HYPOALB) 9.4 mg/dL (8.5-10.1); CREATININE 1.24 mg/dL (0.55-1.02); TOTAL PROTEIN 5.3 g/dL (6.4-8.2)
[2021-08-04] MEDS: APRESOLINE INJ 20 MG VIAL IVP PRN ×2 (05:25→17:35)
[2021-08-04] MEDS: MIRAPEX TAB 0.25 MG PO SCH ×3 (05:37→21:12)
[2021-08-04] MEDS: TYLENOL SUPP 650 MG PR PRN ×2 (05:37→22:09)
[2021-08-04] MEDS: ZOSYN VIAL 3.375 GRAMS 3.375 G in NS 100 ML IV + SPIKE MINIBAG* 100 ML IV SCH ×3 (05:37→21:12)
[2021-08-04] MEDS: DUONEB 0.5 MG/3 MG (3 mL) NEB SCH ×2 (06:00→13:45)
[2021-08-04] MEDS: NovoLIN R (or HumuLIN R) SUBCUT PRN ×4 (06:08→20:31)
[2021-08-04] MEDS: ASPIRIN EC 81 MG PO SCH (08:30)
[2021-08-04] MEDS: LOPRESSOR TAB 50 MG PO SCH ×2 (08:30→20:29)
[2021-08-04] MEDS: CITRACAL + VITAMIN D PO SCH (08:30)
[2021-08-04] MEDS: FERROUS GLUCONATE PO SCH (08:30)
[2021-08-04] MEDS: EXELON PO SCH ×2 (08:51→20:30)
[2021-08-04] MEDS: LOVENOX INJ 30 MG SYR SC SCH (08:51)
--- NOTE | 2021-08-04 08:54 | MRI ---
HISTORYAMS, UNSTEADY GAIT, NEGATIVE CT HEADSTUDYMR brain without IV contrastCOMPARISONCT 07/31/2021TECHNIQUEMultiplanar multi-sequence MRI of the brain was obtained without administration of IV contrast.FINDINGSMotion limits the study. The cerebellar tonsils are normally positioned. Pituitary gland is normal in size. [Prominent diffuse volume loss in the brain with compensatory enlargement of the ventricular system.]No areas of restricted diffusion. There are moderate chronic small vessel ischemic changes in the supratentorial white matter which are confluent in the periventricular regions. This appearance is similar to CT. [No evidence of intracranial hemorrhage.]Mild mucosal thickening is seen in the paranasal sinuses.IMPRESSIONNo evidence of recent CVA.Moderate chronic small vessel ischemic changes are seen.Prominent diffuse volume loss is seen in the brain, greater than the small vessel ischemic changes. Consider possible dementia.Electronically signed by: Rico Shepherd (Aug 04, 2021 08:52:03)
--- NOTE | 2021-08-04 09:17 | RAD ---
HISTORYFollow-up COVID-19STUDYChest AP [id number]/2021FINDINGSThe examination is underpenetrated. The heart is mildly enlarged. No definite congestive heart failure is noted. No definite alveolar infiltrates are identified. No areas of consolidation are identified. No pleural effusion or pneumothorax is identified. Bony thorax is unremarkable.IMPRESSIONCardiomegaly without definite congestive heart failureNo definite infiltratesElectronically signed by: SONIA WADSWORTH (Aug 04, 2021 09:16:01)
[2021-08-04] MEDS: PULMICORT NEB TX 0.5 MG NEB SCH ×2 (09:30→20:33)
[2021-08-04] MEDS: BROVANA IN SCH ×2 (09:30→20:33)
[2021-08-04] MEDS: PEPCID 20 MG IV PREMIX* 20 MG/50 ML BAG IV SCH (09:55)
--- NOTE | 2021-08-04 12:51 | PCM.PROG ---
Progress Note Progress Note for Day of Date of Exam: 08/04/21 Subjective Subjective: Patient seen at bedside, overnight patient did have a temp of 103, she was given Tylenol suppository and fever did resolve. Blood Cx were sent. She appeared to be lethargic/drowsy last night and could not take her PO medications so IV hydralazine was given. She had been given Temazepam last night which likely made her drowsy. She is awake and alert to self this AM. She can follow very simple direct commands but does need redirection. She is oriented to herself. Patient remains on room air. Labs reviewed Plan: Continue ICU COVID-19 protocol. Follow MRI results. Order CXR. Continue D5 NS 50cc/hr. Continue IV Zosyn and nebs. Patient remains on room air. Follow cultures. DC Temazepam. Continue Vitamin C. Continue SSI. Start nystatin swish and swallow prn. Continue PT/OT. Monitor AM labs/imaging. Time spent for clinical assessment, reviewing labs/imaging, physical exam, de cision making and documentation greater than 45 mins. Past Medical Family Social History Past Med/Fam/Surg Hx: No changes since H&P Allergies: Allergies No Known Drug Allergies Allergy (Unverified 07/31/21 19:05) Review of Systems ROS: No change since H&P Vital Signs and I&O's Vital Signs: Temperature 100.8 F Pulse Rate [Left Radial] 79 Pulse Rate 86 Respiratory Rate 22 Blood Pressure [Left Arm] 159/69 Blood Pressure [Right Arm] 156/68 Blood Pressure 150/65 O2 Sat by Pulse Oximetry 97 Intake and Output: Intake & Output 08/01/21 08/02/21 08/03/21 08/04/21 23:59 23:59 23:59 23:59 Intake Total 3113 / 3113 1946 / 1946 275 / 275 Balance 3113 / 3113 1946 / 1946 275 / 275 Physical Exam Oriented: Person Eyes: Normal Ear: Normal Nose: Normal Throat: Dry and Other (oral thrush noted ) Respiratory: Generalized and Diminished Cardiovascular: Normal Auscultation: Bowel Sounds: Normal Tenderness: Normal Skin: Decreased Turgur Psychiatric: Normal Mood Description: Calm Affect: Normal Speech Pattern: Clear Laboratory and Diagnostics Result Diagrams: 08/04/21 04:30 08/04/21 04:30 Labs: Laboratory WBC 4.7 X10^3/uL (3.6-10.0) 08/04/21 04:30 RBC 3.04 X10^6/uL (3.5-5.4) L 08/04/21 04:30 Hgb 10.0 g/dL (12.0-16.0) L 08/04/21 04:30 Hct 28.4 % (36.0-47.0) L 08/04/21 04:30 MCV 93.7 fL (80.0-100.0) 08/04/21 04:30 MCH 32.9 pg (27.0-34.0) 08/04/21 04:30 MCHC 35.1 g/dL (33.0-35.0) H 08/04/21 04:30 RDW 14.1 % (11.6-16.5) 08/04/21 04:30 Plt Count 141 X10^3/uL (150.0-450.0) L 08/04/21 04:30 Plt Count Comment Decreased (ADEQUATE) A 08/01/21 05:51 MPV 7.8 fL (7.4-11.0) 08/04/21 04:30 Neut % (Auto) 67.0 % (42.0-75.0) 08/04/21 04:30 Lymph % (Auto) 28.7 % (21.0-51.0) 08/04/21 04:30 [place] % (Auto) 4.2 % (0.0-13.0) 08/04/21 04:30 Eos % (Auto) 0.0 % (0.9-2.9) L 08/04/21 04:30 Baso % (Auto) 0.1 % (0.2-1.0) L 08/04/21 04:30 Neut # (Auto) 3.1 x10^3/uL (2.2-4.8) 08/04/21 04:30 Lymph # (Auto) 1.3 X10^3/uL (1.3-2.9) 08/04/21 04:30 [place] # (Auto) 0.2 x10^3/uL (0.3-0.8) L 08/04/21 04:30 Eos # (Auto) 0.0 x10^3/uL (0.0-0.2) 08/04/21 04:30 Baso # (Auto) 0.0 X10^3/uL (0.0-0.1) 08/04/21 04:30 Absolute Nucleated RBC 0.0 /100WBC 08/04/21 04:30 Total Counted 100 08/01/21 05:51 Neutrophils % (Manual) 30 % (39-76) L 08/01/21 05:51 Lymphocytes % (Manual) 62 % (13-43) H 08/01/21 05:51 Monocytes % (Manual) 8 % (4-9) 08/01/21 05:51 Smudge Cells 2+ A 08/01/21 05:51 Plt Morphology Comment Normal (NORMAL) 08/01/21 05:51 RBC Morphology Normal (NORMAL) 08/01/21 05:51 Sodium 136 mmol/L (136-145) 08/04/21 04:30 Corrected Sodium 140 mmol/L (136-145) 08/04/21 04:30 Potassium 3.6 mmol/L (3.5-5.1) 08/04/21 04:30 Chloride 104 mmol/L (98-107) 08/04/21 04:30 Carbon Dioxide 26.0 mmol/L (21-32) 08/04/21 04:30 BUN 20 mg/dL (7-18) H 08/04/21 04:30 Creatinine 1.24 mg/dL (0.55-1.02) H 08/04/21 04:30 Est GFR (MDRD) Af Amer 52 (>60) L 08/04/21 04:30 Est GFR (MDRD) Non-Af 43 (>60) L 08/04/21 04:30 Glucose 273 mg/dL (65-99) H 08/04/21 04:30 POC Glucose (mg/dL) 212 mg/dL (65-99) H 08/04/21 11:00 Calcium 8.3 mg/dL (8.5-10.1) L 08/04/21 04:30 Corrected Calcium 9.4 mg/dL (8.5-10.1) 08/04/21 04:30 Total Bilirubin 0.60 mg/dL (0.2-1.0) 08/04/21 04:30 AST 47 Units/L (15-37) H 08/04/21 04:30 ALT 28 Units/L (12-78) 08/04/21 04:30 Alkaline Phosphatase 44 Units/L (46-116) L 08/04/21 04:30 Creatine Kinase 363 Units/L (26-192) H 07/31/21 19:18 Total Protein 5.3 g/dL (6.4-8.2) L 08/04/21 04:30 Albumin 2.6 g/dL (3.4-5.0) L 08/04/21 04:30 Globulin 2.7 g/dL (2.5-4.5) 08/04/21 04:30 Albumin/Globulin Ratio 1.0 Ratio (1.1-2.1) L 08/04/21 04:30 Specimen Type Catherized urine 08/02/21 05:00 Urine Color Pale yellow (YELLOW) 08/02/21 05:00 Urine Appearance Clear (CLEAR) 08/02/21 05:00 Urine pH 5.0 (5.0 - 8.0) 08/02/21 05:00 Ur Specific [place] 1.020 (1.000-1.030) 08/02/21 05:00 Urine Protein 1+ (NEGATIVE) 08/02/21 05:00 Urine Glucose (UA) 3+ (NEGATIVE) 08/02/21 05:00 Urine Ketones 1+ (NEGATIVE) 08/02/21 05:00 Urine Occult Blood Negative (NEGATIVE) 08/02/21 05:00 Urine Nitrite Negative (NEGATIVE) 08/02/21 05:00 Urine Bilirubin Negative (NEGATIVE) 08/02/21 05:00 Urine Urobilinogen Normal (NORMAL) 08/02/21 05:00 Ur Leukocyte Esterase Negative (NEGATIVE) 08/02/21 05:00 Urine RBC None seen /HPF (0-3) 08/02/21 05:00 Urine WBC None seen /HPF (0-5) 08/02/21 05:00 Ur Squamous Epith Cells Rare /HPF (NEGATIVE) 08/02/21 05:00 Amorphous Sediment 1+ /HPF (NEGATIVE) 08/02/21 05:00 Urine Bacteria Trace /HPF (NEGATIVE) 08/02/21 05:00 Ur Culture Indicated? No/not indicated 08/02/21 05:00 SARS CoV-2 RNA Rapid MARA Positive (NEGATIVE) A 07/31/21 21:10 Plan (1) Dementia: Status: Acute Qualifiers: Dementia behavioral disturbance: without behavioral disturbance Dementia type: unspecified type Qualified Code(s): F03.90 - Unspecified dementia without behavioral disturbance (2) Acute hyponatremia: Status: Acute (3) AMS (altered mental status): Status: Acute Qualifiers: Altered mental status type: disorientation Qualified Code(s): R41.0 - Disorientation, unspecified (4) Weakness: Status: Acute (5) COVID-19: Status: Acute (6) Pansinusitis: Status: Acute Qualifiers: Chronicity: acute Recurrence: not specified as recurrent Qualified Code(s): J01.40 - Acute pansinusitis, unspecified (7) Hypoglycemia: Status: Acute (8) Dysphagia: Status: Acute Qualifiers: Dysphagia type: unspecified Qualified Code(s): R13.10 - Dysphagia, unspecified (9) Fall: Status: Acute Qualifiers: Encounter type: sequela Qualified Code(s): W19.XXXS - Unspecified fall, sequela (10) Dehydration: Status: Acute
[2021-08-04] MEDS: SNACK - Diabetic Appropriate PO SCH (20:28)
[2021-08-04] MEDS: ZOCOR TAB 20 MG PO SCH (20:30)
[2021-08-04] MEDS: NORVASC TAB 5 MG PO SCH (20:31)
[2021-08-05] MEDS: ASCORBIC ACID INJ MULTI-DOSE VIAL 1,500 MG in NS 50 ML IV 50 ML IV SCH ×4 (02:59→21:00)
[2021-08-05 04:53] LABS: BASOPHILS % (AUTO) 0 % (0.2-1.0); HEMATOCRIT 27.6 % (36.0-47.0); HEMOGLOBIN 9.6 g/dL (12.0-16.0); LYMPHOCYTES # (AUTO) 1.1 X10^3/uL (1.3-2.9); LYMPHOCYTES % (AUTO) 25.8 % (21.0-51.0); MEAN CORPUSCULAR HEMOGLOBIN 32.8 pg (27.0-34.0); MEAN CORPUSCULAR VOLUME 93.9 fL (80.0-100.0); MEAN PLATELET VOLUME 7.6 fL (7.4-11.0); MONOCYTES # (AUTO) 0.1 x10^3/uL (0.3-0.8); MONOCYTES % (AUTO) 3.2 % (0.0-13.0); PLATELET COUNT 129 X10^3/uL (150.0-450.0); RED BLOOD COUNT 2.94 X10^6/uL (3.5-5.4); RED CELL DISTRIBUTION WIDTH 14.5 % (11.6-16.5); WHITE BLOOD COUNT 4.3 X10^3/uL (3.6-10.0)
[2021-08-05 05:05] LABS: ALBUMIN 2.5 g/dL (3.4-5.0); CALCIUM 8.2 mg/dL (8.5-10.1); CARBON DIOXIDE 23.2 mmol/L (21-32); COR CA(FOR HYPOALB) 9.4 mg/dL (8.5-10.1); CREATININE 1.14 mg/dL (0.55-1.02); TOTAL PROTEIN 5.2 g/dL (6.4-8.2)
[2021-08-05] MEDS: D5 NS 1,000 ML IV 1,000 ML IV SCH (05:29)
[2021-08-05] MEDS: MIRAPEX TAB 0.25 MG PO SCH ×3 (05:34→21:15)
[2021-08-05] MEDS: ZOSYN VIAL 3.375 GRAMS 3.375 G in NS 100 ML IV + SPIKE MINIBAG* 100 ML IV SCH ×3 (05:34→21:15)
[2021-08-05] MEDS: DUONEB 0.5 MG/3 MG (3 mL) NEB SCH ×3 (06:00→21:28)
[2021-08-05] MEDS ORDERED: POTASSIUM CHLORIDE LIQ 20 MEQ UDC PO PRN (08:07)
[2021-08-05] MEDS ORDERED: K-DUR TAB 20 MEQ PO PRN (08:07)
[2021-08-05] MEDS ORDERED: MICRO K EXTEN CAP 10 MEQ PO PRN (08:07)
[2021-08-05] MEDS ORDERED: POTASSIUM CHL 40 MEQ/NS 0.45% 500 ML IV PRN (08:07)
[2021-08-05] MEDS ORDERED: KLOR-CON PO PRN (08:07)
[2021-08-05] MEDS ORDERED: POTASSIUM CHL 60 MEQ/NS 0.45% 500 ML IV PRN (08:07)
[2021-08-05] MEDS ORDERED: ZOFRAN INJ 4 MG VIAL IVP PRN (08:52)
[2021-08-05] MEDS ORDERED: REMDESIVIR 200 MG in NS 100 ML IV 140 ML IV NR (08:52)
[2021-08-05] MEDS ORDERED: TYLENOL 325 MG TAB PO PRN (09:00)
[2021-08-05] MEDS: ZITHROMAX INJ 500 MG VIAL 500 MG in NS 250 ML IV 250 ML IV SCH ×2 (09:09)
[2021-08-05] MEDS: PULMICORT NEB TX 0.5 MG NEB SCH ×2 (09:18→21:28)
[2021-08-05] MEDS: SOLU-Medrol 40 MG VIAL IVP SCH ×2 (09:43→21:00)
[2021-08-05] MEDS: LOPRESSOR TAB 50 MG PO SCH ×2 (09:44→21:00)
[2021-08-05] MEDS: FERROUS GLUCONATE PO SCH (09:45)
[2021-08-05] MEDS: LOVENOX INJ 30 MG SYR SC SCH (09:46)
[2021-08-05] MEDS: CITRACAL + VITAMIN D PO SCH (09:46)
[2021-08-05] MEDS: ASPIRIN EC 81 MG PO SCH (09:46)
[2021-08-05] MEDS: EXELON PO SCH ×2 (09:46→21:00)
[2021-08-05] MEDS ORDERED: MORPHINE SULFATE INJ 2 MG INJ IVP ONE (10:25)
[2021-08-05] MEDS: BROVANA IN SCH ×2 (11:01→21:28)
[2021-08-05] MEDS: NovoLIN R (or HumuLIN R) SUBCUT PRN ×3 (11:20→23:57)
[2021-08-05] MEDS: PEPCID 20 MG IV PREMIX* 20 MG/50 ML BAG IV SCH (11:49)
--- NOTE | 2021-08-05 13:07 | PCM.PROG ---
Progress Note Progress Note for Day of Date of Exam: 08/05/21 Subjective Subjective: Patient seen at bedside, overnight she did have a fever, Tmax 102.7, this morning she is afebrile. She did receive Tylenol. She was also placed on 2l NC due to RR being elevated, sats remained above 92%. She is awake, oriented to self. She has some dry cough. She also has an episode of vomiting earlier. She is able to answer some very simple and direct questions. MRI-brain did not show any acute process, chronic changes suggestive of dementia. CXR did not show any infiltrates. Labs reviewed Plan: Continue ICU COVID-19 protocol. Wean O2 as tolerated to keep sats > 92%. Continue D5 NS 50cc/hr. Add zofran prn. Add morphine prn for air hunger. Continue IV Zosyn and nebs. Add Azithromycin. Start Remedisvir and Solumedrol. Follow cultures. Continue Vitamin C. Continue SSI. Continue nystatin swish and swallow prn. Replace K as per protocol. Continue pureed diet. Continue PT/OT. M onitor AM labs/imaging. Time spent for clinical assessment, reviewing labs/imaging, physical exam, decision making and documentation greater than 45 mins. Past Medical Family Social History Past Med/Fam/Surg Hx: No changes since H&P Allergies: Allergies No Known Drug Allergies Allergy (Unverified 07/31/21 19:05) Review of Systems ROS: No change since H&P Vital Signs and I&O's Vital Signs: Temperature 100.8 F Pulse Rate [Left Radial] 79 Pulse Rate 80 Respiratory Rate 25 Blood Pressure [Left Arm] 159/69 Blood Pressure [Right Arm] 156/68 Blood Pressure 169/72 O2 Sat by Pulse Oximetry 97 Intake and Output: Intake & Output 08/02/21 08/03/21 08/04/21 08/05/21 23:59 23:59 23:59 23:59 Intake Total 1946 / 1678 519 / 519 Output Total 800 / 800 Balance 1946 / 1678 -281 / -281 Physical Exam Oriented: Person Eyes: Normal Ear: Normal Nose: Normal Throat: Dry and Other (oral thrush noted ) Respiratory: Generalized and Diminished Cardiovascular: Normal Auscultation: Bowel Sounds: Normal Tenderness: Normal Skin: Decreased Turgur Psychiatric: Normal Mood Description: Calm Affect: Normal Speech Pattern: Clear Laboratory and Diagnostics Result Diagrams: 08/05/21 04:18 08/05/21 04:18 Labs: 08/03/21 20:04 Blood Blood Culture - Preliminary 08/03/21 19:52 Blood Blood Culture - Preliminary Laboratory WBC 4.3 X10^3/uL (3.6-10.0) 08/05/21 04:18 RBC 2.94 X10^6/uL (3.5-5.4) L 08/05/21 04:18 Hgb 9.6 g/dL (12.0-16.0) L 08/05/21 04:18 Hct 27.6 % (36.0-47.0) L 08/05/21 04:18 MCV 93.9 fL (80.0-100.0) 08/05/21 04:18 MCH 32.8 pg (27.0-34.0) 08/05/21 04:18 MCHC 35.0 g/dL (33.0-35.0) 08/05/21 04:18 RDW 14.5 % (11.6-16.5) 08/05/21 04:18 Plt Count 129 X10^3/uL (150.0-450.0) L 08/05/21 04:18 Plt Count Comment Decreased (ADEQUATE) A 08/01/21 05:51 MPV 7.6 fL (7.4-11.0) 08/05/21 04:18 Neut % (Auto) 71.0 % (42.0-75.0) 08/05/21 04:18 Lymph % (Auto) 25.8 % (21.0-51.0) 08/05/21 04:18 [place] % (Auto) 3.2 % (0.0-13.0) 08/05/21 04:18 Eos % (Auto) 0.0 % (0.9-2.9) L 08/05/21 04:18 Baso % (Auto) 0 % (0.2-1.0) L 08/05/21 04:18 Neut # (Auto) 3.0 x10^3/uL (2.2-4.8) 08/05/21 04:18 Lymph # (Auto) 1.1 X10^3/uL (1.3-2.9) L 08/05/21 04:18 [place] # (Auto) 0.1 x10^3/uL (0.3-0.8) L 08/05/21 04:18 Eos # (Auto) 0.0 x10^3/uL (0.0-0.2) 08/05/21 04:18 Baso # (Auto) 0.0 X10^3/uL (0.0-0.1) 08/05/21 04:18 Absolute Nucleated RBC 0.1 /100WBC 08/05/21 04:18 Total Counted 100 08/01/21 05:51 Neutrophils % (Manual) 30 % (39-76) L 08/01/21 05:51 Lymphocytes % (Manual) 62 % (13-43) H 08/01/21 05:51 Monocytes % (Manual) 8 % (4-9) 08/01/21 05:51 Smudge Cells 2+ A 08/01/21 05:51 Plt Morphology Comment Normal (NORMAL) 08/01/21 05:51 RBC Morphology Normal (NORMAL) 08/01/21 05:51 Sodium 145 mmol/L (136-145) 08/05/21 04:18 Corrected Sodium 146 mmol/L (136-145) H 08/05/21 04:18 Potassium 2.9 mmol/L (3.5-5.1) L* 08/05/21 04:18 Chloride 109 mmol/L (98-107) H 08/05/21 04:18 Carbon Dioxide 23.2 mmol/L (21-32) 08/05/21 04:18 BUN 20 mg/dL (7-18) H 08/05/21 04:18 Creatinine 1.14 mg/dL (0.55-1.02) H 08/05/21 04:18 Est GFR (MDRD) Af Amer 58 (>60) L 08/05/21 04:18 Est GFR (MDRD) Non-Af 48 (>60) L 08/05/21 04:18 Glucose 154 mg/dL (65-99) H 08/05/21 04:18 POC Glucose (mg/dL) 374 mg/dL (65-99) H 08/05/21 11:15 Calcium 8.2 mg/dL (8.5-10.1) L 08/05/21 04:18 Corrected Calcium 9.4 mg/dL (8.5-10.1) 08/05/21 04:18 Total Bilirubin 0.60 mg/dL (0.2-1.0) 08/05/21 04:18 AST 57 Units/L (15-37) H 08/05/21 04:18 ALT 42 Units/L (12-78) 08/05/21 04:18 Alkaline Phosphatase 42 Units/L (46-116) L 08/05/21 04:18 Creatine Kinase 363 Units/L (26-192) H 07/31/21 19:18 C-Reactive Protein 104.80 mg/L (0-3.0) H 08/05/21 04:18 Total Protein 5.2 g/dL (6.4-8.2) L 08/05/21 04:18 Albumin 2.5 g/dL (3.4-5.0) L 08/05/21 04:18 Globulin 2.7 g/dL (2.5-4.5) 08/05/21 04:18 Albumin/Globulin Ratio 0.9 Ratio (1.1-2.1) L 08/05/21 04:18 Specimen Type Catherized urine 08/02/21 05:00 Urine Color Pale yellow (YELLOW) 08/02/21 05:00 Urine Appearance Clear (CLEAR) 08/02/21 05:00 Urine pH 5.0 (5.0 - 8.0) 08/02/21 05:00 Ur Specific [place] 1.020 (1.000-1.030) 08/02/21 05:00 Urine Protein 1+ (NEGATIVE) 08/02/21 05:00 Urine Glucose (UA) 3+ (NEGATIVE) 08/02/21 05:00 Urine Ketones 1+ (NEGATIVE) 08/02/21 05:00 Urine Occult Blood Negative (NEGATIVE) 08/02/21 05:00 Urine Nitrite Negative (NEGATIVE) 08/02/21 05:00 Urine Bilirubin Negative (NEGATIVE) 08/02/21 05:00 Urine Urobilinogen Normal (NORMAL) 08/02/21 05:00 Ur Leukocyte Esterase Negative (NEGATIVE) 08/02/21 05:00 Urine RBC None seen /HPF (0-3) 08/02/21 05:00 Urine WBC None seen /HPF (0-5) 08/02/21 05:00 Ur Squamous Epith Cells Rare /HPF (NEGATIVE) 08/02/21 05:00 Amorphous Sediment 1+ /HPF (NEGATIVE) 08/02/21 05:00 Urine Bacteria Trace /HPF (NEGATIVE) 08/02/21 05:00 Ur Culture Indicated? No/not indicated 08/02/21 05:00 SARS CoV-2 RNA Rapid MARA Positive (NEGATIVE) A 07/31/21 21:10 Plan (1) Pneumonia due to COVID-19 virus: Status: Acute (2) Dementia: Status: Acute Qualifiers: Dementia behavioral disturbance: without behavioral disturbance Dementia type: unspecified type Qualified Code(s): F03.90 - Unspecified dementia without behavioral disturbance (3) Acute hyponatremia: Status: Acute (4) AMS (altered mental status): Status: Acute Qualifiers: Altered mental status type: disorientation Qualified Code(s): R41.0 - Disorientation, unspecified (5) Weakness: Status: Acute (6) COVID-19: Status: Acute (7) Pansinusitis: Status: Acute Qualifiers: Chronicity: acute Recurrence: not specified as recurrent Qualified Code(s): J01.40 - Acute pansinusitis, unspecified (8) Hypoglycemia: Status: Acute (9) Dysphagia: Status: Acute Qualifiers: Dysphagia type: unspecified Qualified Code(s): R13.10 - Dysphagia, unspecified (10) Fall: Status: Acute Qualifiers: Encounter type: sequela Qualified Code(s): W19.XXXS - Unspecified fall, sequela (11) Dehydration: Status: Acute
[2021-08-05] MEDS: NYSTATIN SUSP PO SCH ×3 (13:51→21:00)
[2021-08-05] MEDS ORDERED: ROBITUSSIN DM PO PRN (16:24)
[2021-08-05] MEDS ORDERED: ROBITUSSIN DM PO SCH (17:00)
[2021-08-05] MEDS: APRESOLINE INJ 20 MG VIAL IVP PRN (17:27)
[2021-08-05] MEDS: NORVASC TAB 5 MG PO SCH (21:00)
[2021-08-05] MEDS: ZOCOR TAB 20 MG PO SCH (21:00)
[2021-08-05] MEDS: SNACK - Diabetic Appropriate PO SCH (21:25)
[2021-08-06] MEDS ORDERED: ZESTRIL TAB 20 MG ONE ×3 (00:42→09:39)
[2021-08-06] MEDS ORDERED: TOPROL XL PO ONE ×3 (00:42→06:51)
[2021-08-06] MEDS ORDERED: ZESTRIL TAB 20 MG PO SCH (01:00)
[2021-08-06] MEDS ORDERED: TOPROL XL PO SCH (01:00)
[2021-08-06 05:14] LABS: BASOPHILS % (AUTO) 0.1 % (0.2-1.0); HEMATOCRIT 34.5 % (36.0-47.0); LYMPHOCYTES # (AUTO) 0.9 X10^3/uL (1.3-2.9); LYMPHOCYTES % (AUTO) 9.4 % (21.0-51.0); MEAN CORPUSCULAR HEMOGLOBIN 32.2 pg (27.0-34.0); MEAN CORPUSCULAR HGB CONC 34.7 g/dL (33.0-35.0); MEAN CORPUSCULAR VOLUME 92.9 fL (80.0-100.0); MEAN PLATELET VOLUME 7.5 fL (7.4-11.0); MONOCYTES # (AUTO) 0.2 x10^3/uL (0.3-0.8); MONOCYTES % (AUTO) 2.3 % (0.0-13.0); NEUTROPHILS # (AUTO) 8.2 x10^3/uL (2.2-4.8); NEUTROPHILS % (AUTO) 88.2 % (42.0-75.0); PLATELET COUNT 212 X10^3/uL (150.0-450.0); RED BLOOD COUNT 3.72 X10^6/uL (3.5-5.4); RED CELL DISTRIBUTION WIDTH 14.9 % (11.6-16.5); WHITE BLOOD COUNT 9.3 X10^3/uL (3.6-10.0)
[2021-08-06] MEDS: ASCORBIC ACID INJ MULTI-DOSE VIAL 1,500 MG in NS 50 ML IV 50 ML IV SCH ×4 (05:25→20:32)
[2021-08-06 05:27] LABS: ALANINE AMINOTRANSFERASE 43 Units/L (12-78); ALBUMIN 2.7 g/dL (3.4-5.0); ALKALINE PHOSPHATASE 51 Units/L (46-116); ASPARTATE AMINO TRANSFERASE 39 Units/L (15-37); BLOOD UREA NITROGEN 23 mg/dL (7-18); CALCIUM 9.4 mg/dL (8.5-10.1); CARBON DIOXIDE 24.9 mmol/L (21-32); CHLORIDE 111 mmol/L (98-107); COR CA(FOR HYPOALB) 10.4 mg/dL (8.5-10.1); COR NA(FOR HYPERGLY) 147 mmol/L (136-145); SODIUM 146 mmol/L (136-145); TOTAL PROTEIN 6.3 g/dL (6.4-8.2); eGFR NON BLACK RACES 55 (>60)
[2021-08-06] MEDS: ZESTRIL TAB 20 MG PO SCH ×2 (07:13→09:54)
[2021-08-06] MEDS: MIRAPEX TAB 0.25 MG PO SCH ×3 (07:14→21:22)
[2021-08-06] MEDS: ZOSYN VIAL 3.375 GRAMS 3.375 G in NS 100 ML IV + SPIKE MINIBAG* 100 ML IV SCH ×3 (07:14→21:30)
[2021-08-06] MEDS: BROVANA IN SCH ×2 (09:15→20:30)
[2021-08-06] MEDS: PULMICORT NEB TX 0.5 MG NEB SCH ×2 (09:15→20:30)
[2021-08-06] MEDS: ASPIRIN EC 81 MG PO SCH (09:52)
[2021-08-06] MEDS: CITRACAL + VITAMIN D PO SCH (09:52)
[2021-08-06] MEDS: NYSTATIN SUSP PO SCH ×4 (09:53→20:33)
[2021-08-06] MEDS: LOVENOX INJ 40 MG SYR SC SCH (09:53)
[2021-08-06] MEDS: FERROUS GLUCONATE PO SCH (09:53)
[2021-08-06] MEDS: REMDESIVIR 100 MG in NS 250 ML IV 250 ML IV SCH (09:53)
[2021-08-06] MEDS: EXELON PO SCH ×2 (09:53→20:32)
[2021-08-06] MEDS: SOLU-Medrol 40 MG VIAL IVP SCH ×2 (09:54→20:33)
[2021-08-06] MEDS: ZITHROMAX INJ 500 MG VIAL 500 MG in NS 250 ML IV 250 ML IV SCH (09:54)
[2021-08-06] MEDS: PEPCID 20 MG IV PREMIX* 20 MG/50 ML BAG IV SCH (10:17)
[2021-08-06] MEDS: NovoLIN R (or HumuLIN R) SUBCUT PRN ×3 (11:39→20:48)
--- NOTE | 2021-08-06 13:17 | PCM.PROG ---
Progress Note Progress Note for Day of Date of Exam: 08/06/21 Subjective Subjective: Patient seen at bedside, overnight her BP was elevated, and she was given metoprolol succinate 100 mg and her daily metoprolol was changed to succinate 200 mg daily. She also got lisinopril 40 mg. She was afebrile. This morning she is awake and oriented to self and place (hospital). Her son is at bedside. Patient ate some yesterday. She is able to take her meds crushed in pureed food. Son does states that patient does have severe dementia and forgets where she is at times. Labs reviewed Plan: Continue ICU COVID-19 protocol. Wean O2 as tolerated to keep sats > 92%. Continue zofran prn. Continue IV Zosyn, azithromycin and nebs. Continue Remedisvir and Solumedrol. Blood Cx no growth so far. Continue Vitamin C. Continue SSI. Continue nystatin swish and swallow prn. Continue pureed diet. Continue IV hydralazine prn for SBP > 160. Continue lisinopril and metoprolol succinate. Increase amlodipine to 10 mg qhS. Continue PT/OT, recommended SNF. Monitor AM labs/imaging. Time spent for clinical assessment, reviewing labs/imaging, physical exam, decision making and documentation greater than 45 mins. Past Medical Family Social History Past Med/Fam/Surg Hx: No changes since H&P Allergies: Allergies No Known Drug Allergies Allergy (Unverified 07/31/21 19:05) Review of Systems ROS: No change since H&P Vital Signs and I&O's Vital Signs: Temperature 98.4 F Pulse Rate [Left Radial] 79 Pulse Rate 90 Respiratory Rate 28 Blood Pressure [Left Arm] 159/69 Blood Pressure [Right Arm] 156/68 Blood Pressure 205/88 O2 Sat by Pulse Oximetry 95 Intake and Output: Intake & Output 08/03/21 08/04/21 08/05/21 08/06/21 23:59 23:59 23:59 23:59 Intake Total 1930 1679 / 1679 2249 / 2249 680 / 680 Output Total 800 / 800 Balance 1930 1679 / 1679 1449 / 1449 680 / 680 Physical Exam Oriented: Person Eyes: Normal Ear: Normal Nose: Normal Throat: Dry and Other (oral thrush noted ) Respiratory: Generalized and Diminished Cardiovascular: Normal Auscultation: Bowel Sounds: Normal Tenderness: Normal Skin: Decreased Turgur Psychiatric: Normal Mood Description: Calm Affect: Normal Speech Pattern: Clear and Delayed Laboratory and Diagnostics Result Diagrams: 08/06/21 04:21 08/06/21 04:21 Labs: 08/03/21 20:04 Blood Blood Culture - Preliminary 08/03/21 19:52 Blood Blood Culture - Preliminary Laboratory WBC 9.3 X10^3/uL (3.6-10.0) 08/06/21 04:21 RBC 3.72 X10^6/uL (3.5-5.4) 08/06/21 04:21 Hgb 12.0 g/dL (12.0-16.0) D 08/06/21 04:21 Hct 34.5 % (36.0-47.0) L 08/06/21 04:21 MCV 92.9 fL (80.0-100.0) 08/06/21 04:21 MCH 32.2 pg (27.0-34.0) 08/06/21 04:21 MCHC 34.7 g/dL (33.0-35.0) 08/06/21 04:21 RDW 14.9 % (11.6-16.5) 08/06/21 04:21 Plt Count 212 X10^3/uL (150.0-450.0) 08/06/21 04:21 Plt Count Comment Decreased (ADEQUATE) A 08/01/21 05:51 MPV 7.5 fL (7.4-11.0) 08/06/21 04:21 Neut % (Auto) 88.2 % (42.0-75.0) H 08/06/21 04:21 Lymph % (Auto) 9.4 % (21.0-51.0) L 08/06/21 04:21 [place] % (Auto) 2.3 % (0.0-13.0) 08/06/21 04:21 Eos % (Auto) 0.0 % (0.9-2.9) L 08/06/21 04:21 Baso % (Auto) 0.1 % (0.2-1.0) L 08/06/21 04:21 Neut # (Auto) 8.2 x10^3/uL (2.2-4.8) H 08/06/21 04:21 Lymph # (Auto) 0.9 X10^3/uL (1.3-2.9) L 08/06/21 04:21 [place] # (Auto) 0.2 x10^3/uL (0.3-0.8) L 08/06/21 04:21 Eos # (Auto) 0.0 x10^3/uL (0.0-0.2) 08/06/21 04:21 Baso # (Auto) 0.0 X10^3/uL (0.0-0.1) 08/06/21 04:21 Absolute Nucleated RBC 0.1 /100WBC 08/06/21 04:21 Total Counted 100 08/01/21 05:51 Neutrophils % (Manual) 30 % (39-76) L 08/01/21 05:51 Lymphocytes % (Manual) 62 % (13-43) H 08/01/21 05:51 Monocytes % (Manual) 8 % (4-9) 08/01/21 05:51 Smudge Cells 2+ A 08/01/21 05:51 Plt Morphology Comment Normal (NORMAL) 08/01/21 05:51 RBC Morphology Normal (NORMAL) 08/01/21 05:51 Sodium 146 mmol/L (136-145) H 08/06/21 04:21 Corrected Sodium 147 mmol/L (136-145) H 08/06/21 04:21 Potassium 3.5 mmol/L (3.5-5.1) 08/06/21 04:21 Chloride 111 mmol/L (98-107) H 08/06/21 04:21 Carbon Dioxide 24.9 mmol/L (21-32) 08/06/21 04:21 BUN 23 mg/dL (7-18) H 08/06/21 04:21 Creatinine 1.00 mg/dL (0.55-1.02) 08/06/21 04:21 Est GFR (MDRD) Af Amer > 60 (>60) 08/06/21 04:21 Est GFR (MDRD) Non-Af 55 (>60) L 08/06/21 04:21 Glucose 143 mg/dL (65-99) H 08/06/21 04:21 POC Glucose (mg/dL) 212 mg/dL (65-99) H 08/06/21 11:18 Calcium 9.4 mg/dL (8.5-10.1) 08/06/21 04:21 Corrected Calcium 10.4 mg/dL (8.5-10.1) H 08/06/21 04:21 Total Bilirubin 0.50 mg/dL (0.2-1.0) 08/06/21 04:21 AST 39 Units/L (15-37) H 08/06/21 04:21 ALT 43 Units/L (12-78) 08/06/21 04:21 Alkaline Phosphatase 51 Units/L (46-116) 08/06/21 04:21 Creatine Kinase 363 Units/L (26-192) H 07/31/21 19:18 C-Reactive Protein 104.80 mg/L (0-3.0) H 08/05/21 04:18 Total Protein 6.3 g/dL (6.4-8.2) L 08/06/21 04:21 Albumin 2.7 g/dL (3.4-5.0) L 08/06/21 04:21 Globulin 3.6 g/dL (2.5-4.5) 08/06/21 04:21 Albumin/Globulin Ratio 0.8 Ratio (1.1-2.1) L 08/06/21 04:21 Specimen Type Catherized urine 08/02/21 05:00 Urine Color Pale yellow (YELLOW) 08/02/21 05:00 Urine Appearance Clear (CLEAR) 08/02/21 05:00 Urine pH 5.0 (5.0 - 8.0) 08/02/21 05:00 Ur Specific [place] 1.020 (1.000-1.030) 08/02/21 05:00 Urine Protein 1+ (NEGATIVE) 08/02/21 05:00 Urine Glucose (UA) 3+ (NEGATIVE) 08/02/21 05:00 Urine Ketones 1+ (NEGATIVE) 08/02/21 05:00 Urine Occult Blood Negative (NEGATIVE) 08/02/21 05:00 Urine Nitrite Negative (NEGATIVE) 08/02/21 05:00 Urine Bilirubin Negative (NEGATIVE) 08/02/21 05:00 Urine Urobilinogen Normal (NORMAL) 08/02/21 05:00 Ur Leukocyte Esterase Negative (NEGATIVE) 08/02/21 05:00 Urine RBC None seen /HPF (0-3) 08/02/21 05:00 Urine WBC None seen /HPF (0-5) 08/02/21 05:00 Ur Squamous Epith Cells Rare /HPF (NEGATIVE) 08/02/21 05:00 Amorphous Sediment 1+ /HPF (NEGATIVE) 08/02/21 05:00 Urine Bacteria Trace /HPF (NEGATIVE) 08/02/21 05:00 Ur Culture Indicated? No/not indicated 08/02/21 05:00 SARS CoV-2 RNA Rapid MARA Positive (NEGATIVE) A 07/31/21 21:10 Plan (1) Pneumonia due to COVID-19 virus: Status: Acute (2) Dementia: Status: Acute Qualifiers: Dementia behavioral disturbance: without behavioral disturbance Dementia type: unspecified type Qualified Code(s): F03.90 - Unspecified dementia without behavioral disturbance (3) Acute hyponatremia: Status: Acute (4) AMS (altered mental status): Status: Acute Qualifiers: Altered mental status type: disorientation Qualified Code(s): R41.0 - Disorientation, unspecified (5) Weakness: Status: Acute (6) COVID-19: Status: Acute (7) Pansinusitis: Status: Acute Qualifiers: Chronicity: acute Recurrence: not specified as recurrent Qualified Code(s): J01.40 - Acute pansinusitis, unspecified (8) Hypoglycemia: Status: Acute (9) Dysphagia: Status: Acute Qualifiers: Dysphagia type: unspecified Qualified Code(s): R13.10 - Dysphagia, unspecified (10) Fall: Status: Acute Qualifiers: Encounter type: sequela Qualified Code(s): W19.XXXS - Unspecified fall, sequela (11) Dehydration: Status: Acute
[2021-08-06] MEDS: DUONEB 0.5 MG/3 MG (3 mL) NEB SCH ×3 (13:18→20:30)
[2021-08-06] MEDS: SNACK - Diabetic Appropriate PO SCH (20:32)
[2021-08-06] MEDS: NORVASC TAB 5 MG PO SCH (20:33)
[2021-08-06] MEDS: ZOCOR TAB 20 MG PO SCH (20:33)
[2021-08-06] MEDS: APRESOLINE INJ 20 MG VIAL IVP PRN (21:10)
[2021-08-06] MEDS ORDERED: CATAPRES-TTS-1 TD SCH (22:00)
[2021-08-06] MEDS: MORPHINE SULFATE INJ 2 MG INJ IVP PRN (23:36)
[2021-08-07] MEDS: MORPHINE SULFATE INJ 2 MG INJ IVP PRN (00:40)
[2021-08-07] MEDS: ASCORBIC ACID INJ MULTI-DOSE VIAL 1,500 MG in NS 50 ML IV 50 ML IV SCH ×4 (03:22→22:15)
[2021-08-07] MEDS: DUONEB 0.5 MG/3 MG (3 mL) NEB SCH ×3 (05:00→21:01)
[2021-08-07 06:07] LABS: BASOPHILS % (AUTO) 0.1 % (0.2-1.0); HEMATOCRIT 36.8 % (36.0-47.0); HEMOGLOBIN 12.6 g/dL (12.0-16.0); LYMPHOCYTES # (AUTO) 0.5 X10^3/uL (1.3-2.9); LYMPHOCYTES % (AUTO) 6.1 % (21.0-51.0); MEAN CORPUSCULAR HEMOGLOBIN 32.4 pg (27.0-34.0); MEAN CORPUSCULAR HGB CONC 34.2 g/dL (33.0-35.0); MEAN CORPUSCULAR VOLUME 94.9 fL (80.0-100.0); MEAN PLATELET VOLUME 7.6 fL (7.4-11.0); MONOCYTES # (AUTO) 0.2 x10^3/uL (0.3-0.8); NEUTROPHILS # (AUTO) 7.2 x10^3/uL (2.2-4.8); NEUTROPHILS % (AUTO) 90.8 % (42.0-75.0); PLATELET COUNT 229 X10^3/uL (150.0-450.0); RED BLOOD COUNT 3.88 X10^6/uL (3.5-5.4); RED CELL DISTRIBUTION WIDTH 14.6 % (11.6-16.5)
[2021-08-07 06:13] LABS: ALBUMIN 2.5 g/dL (3.4-5.0); CALCIUM 9.2 mg/dL (8.5-10.1); CARBON DIOXIDE 24.9 mmol/L (21-32); COR CA(FOR HYPOALB) 10.4 mg/dL (8.5-10.1); CREATININE 1.24 mg/dL (0.55-1.02); TOTAL PROTEIN 5.8 g/dL (6.4-8.2)
--- NOTE | 2021-08-07 06:17 | RAD ---
HISTORYCOVID PNEUMONIA HX: HTN, DMSTUDYCHEST, 1 [id number]/2021FINDINGSThe trachea is midline. Borderline heart size. There is confluent alveolar radiopacities involving both lungs. Since prior study, there has been interval worsening of disease with more confluent zones in the left upper lobe and in the left lower lobe. There has been also worsening of disease in the right upper lobe. There is no evidence of pneumothorax or pleural effusions.IMPRESSIONInterval worsening of alveolar disease with confluent zones in the left upper lobe and in the left lower lobe as well as in the right upper lobe.Electronically signed by: Viry Martinez (Aug 07, 2021 06:16:14)
[2021-08-07] MEDS: ZOSYN VIAL 3.375 GRAMS 3.375 G in NS 100 ML IV + SPIKE MINIBAG* 100 ML IV SCH ×3 (07:00→22:15)
[2021-08-07] MEDS: MIRAPEX TAB 0.25 MG PO SCH ×3 (07:00→22:15)
[2021-08-07 07:17] LABS: PLATELET MORPHOLOGY COMMENT NORMAL (NORMAL)
[2021-08-07] MEDS: NovoLIN R (or HumuLIN R) SUBCUT PRN ×3 (07:17→17:45)
[2021-08-07] MEDS ORDERED: ZESTRIL TAB 20 MG ONE (08:41)
[2021-08-07] MEDS ORDERED: TOPROL XL PO ONE (08:41)
[2021-08-07] MEDS: BROVANA IN SCH ×2 (09:13→20:57)
[2021-08-07] MEDS: PULMICORT NEB TX 0.5 MG NEB SCH ×2 (09:13→20:57)
[2021-08-07] MEDS: PEPCID 20 MG IV PREMIX* 20 MG/50 ML BAG IV SCH (09:55)
[2021-08-07] MEDS: ZESTRIL TAB 20 MG PO SCH (09:56)
[2021-08-07] MEDS: ZITHROMAX INJ 500 MG VIAL 500 MG in NS 250 ML IV 250 ML IV SCH (09:56)
[2021-08-07] MEDS: SOLU-Medrol 40 MG VIAL IVP SCH ×2 (09:56→22:15)
[2021-08-07] MEDS: TOPROL XL PO SCH (09:57)
[2021-08-07] MEDS: NYSTATIN SUSP PO SCH ×4 (09:57→22:15)
[2021-08-07] MEDS: LOVENOX INJ 40 MG SYR SC SCH (09:58)
[2021-08-07] MEDS: FERROUS GLUCONATE PO SCH (09:58)
[2021-08-07] MEDS: EXELON PO SCH ×2 (09:59→22:15)
[2021-08-07] MEDS: CITRACAL + VITAMIN D PO SCH (09:59)
[2021-08-07] MEDS: ASPIRIN EC 81 MG PO SCH (09:59)
[2021-08-07] MEDS: REMDESIVIR 100 MG in NS 250 ML IV 250 ML IV SCH (11:19)
[2021-08-07] MEDS: STERILE WATER FOR INJECTION 1,000 ML with SODIUM CHL CONCENTRATE* 23.4% 34 MEQ IV SCH ×2 (11:20)
[2021-08-07] MEDS ORDERED: ZOSYN VIAL 3.375 GRAMS IV ONE (15:08)
--- NOTE | 2021-08-07 15:17 | PCM.PROG ---
Progress Note Progress Note for Day of Date of Exam: 08/07/21 Subjective Subjective: Patient seen at bedside, overnight her BP was elevated, and she was given metoprolol succinate 100 mg and her daily metoprolol was changed to succinate 200 mg daily. She also got lisinopril 40 mg. She was afebrile. This morning she is resting. She is able to take her meds crushed in pureed food. Son does states that patient does have severe dementia and forgets where she is at times. Labs reviewed Plan: Continue ICU COVID-19 protocol. Wean O2 as tolerated to keep sats > 92%. Continue zofran prn. Continue IV Zosyn, azithromycin and nebs. Continue Remedisvir and Solumedrol. Blood Cx no growth so far. Continue Vitamin C. Continue SSI. Continue nystatin swish and swallow prn. Continue pureed diet. Continue IV hydralazine prn for SBP > 160. Continue lisinopril and metoprolol olguin ccinate. Increase amlodipine to 10 mg qhS. Continue PT/OT, recommended SNF. Monitor AM labs/imaging. Time spent for clinical assessment, reviewing labs/imaging, physical exam, decision making and documentation greater than 45 mins. Past Medical Family Social History Past Med/Fam/Surg Hx: No changes since H&P Allergies: Allergies No Known Drug Allergies Allergy (Unverified 07/31/21 19:05) Review of Systems ROS: No change since H&P Vital Signs and I&O's Vital Signs: Temperature 98.0 F Pulse Rate [Left Radial] 79 Pulse Rate 81 Respiratory Rate 22 Blood Pressure [Left Arm] 159/69 Blood Pressure [Right Arm] 156/68 Blood Pressure 160/71 O2 Sat by Pulse Oximetry 96 Intake and Output: Intake & Output 08/05/21 08/06/21 08/07/21 08/08/21 11:59 11:59 11:59 11:59 Intake Total 3 / 1923 2410 / 2410 219 / 219 Output Total 800 / 800 100 / 100 Balance 1123 / 1123 2410 / 2410 2092 Physical Exam Oriented: Unable to test Eyes: Normal Ear: Normal Nose: Normal Throat: Dry and Other (oral thrush noted ) Respiratory: Generalized and Diminished Cardiovascular: Normal Auscultation: Bowel Sounds: Normal Palpation: Spleen Enlarged Tenderness: Normal Skin: Decreased Turgur Psychiatric: Normal Mood Description: Calm Affect: Normal Speech Pattern: Unclear Laboratory and Diagnostics Result Diagrams: 08/07/21 05:10 08/07/21 05:10 Labs: 08/03/21 20:04 Blood Blood Culture - Preliminary 08/03/21 19:52 Blood Blood Culture - Preliminary Laboratory WBC 8.0 X10^3/uL (3.6-10.0) 08/07/21 05:10 RBC 3.88 X10^6/uL (3.5-5.4) 08/07/21 05:10 Hgb 12.6 g/dL (12.0-16.0) 08/07/21 05:10 Hct 36.8 % (36.0-47.0) 08/07/21 05:10 MCV 94.9 fL (80.0-100.0) 08/07/21 05:10 MCH 32.4 pg (27.0-34.0) 08/07/21 05:10 MCHC 34.2 g/dL (33.0-35.0) 08/07/21 05:10 RDW 14.6 % (11.6-16.5) 08/07/21 05:10 Plt Count 229 X10^3/uL (150.0-450.0) 08/07/21 05:10 Plt Count Comment Adequate (ADEQUATE) 08/07/21 05:10 MPV 7.6 fL (7.4-11.0) 08/07/21 05:10 Neut % (Auto) 90.8 % (42.0-75.0) H 08/07/21 05:10 Lymph % (Auto) 6.1 % (21.0-51.0) L 08/07/21 05:10 [place] % (Auto) 3.0 % (0.0-13.0) 08/07/21 05:10 Eos % (Auto) 0.0 % (0.9-2.9) L 08/07/21 05:10 Baso % (Auto) 0.1 % (0.2-1.0) L 08/07/21 05:10 Neut # (Auto) 7.2 x10^3/uL (2.2-4.8) H 08/07/21 05:10 Lymph # (Auto) 0.5 X10^3/uL (1.3-2.9) L 08/07/21 05:10 [place] # (Auto) 0.2 x10^3/uL (0.3-0.8) L 08/07/21 05:10 Eos # (Auto) 0.0 x10^3/uL (0.0-0.2) 08/07/21 05:10 Baso # (Auto) 0.0 X10^3/uL (0.0-0.1) 08/07/21 05:10 Absolute Nucleated RBC 0.0 /100WBC 08/07/21 05:10 Total Counted 100 08/07/21 05:10 Neutrophils % (Manual) 93 % (39-76) H 08/07/21 05:10 Lymphocytes % (Manual) 5 % (13-43) L 08/07/21 05:10 Monocytes % (Manual) 2 % (4-9) L 08/07/21 05:10 Smudge Cells 2+ A 08/01/21 05:51 Plt Morphology Comment Normal (NORMAL) 08/07/21 05:10 RBC Morphology Normal (NORMAL) 08/07/21 05:10 Sodium 149 mmol/L (136-145) H 08/07/21 05:10 Corrected Sodium 154 mmol/L (136-145) H 08/07/21 05:10 Potassium 2.8 mmol/L (3.5-5.1) L* 08/07/21 05:10 Chloride 112 mmol/L (98-107) H 08/07/21 05:10 Carbon Dioxide 24.9 mmol/L (21-32) 08/07/21 05:10 BUN 31 mg/dL (7-18) H 08/07/21 05:10 Creatinine 1.24 mg/dL (0.55-1.02) H 08/07/21 05:10 Est GFR (MDRD) Af Amer 52 (>60) L 08/07/21 05:10 Est GFR (MDRD) Non-Af 43 (>60) L 08/07/21 05:10 Glucose 297 mg/dL (65-99) H 08/07/21 05:10 POC Glucose (mg/dL) 290 mg/dL (65-99) H 08/07/21 12:04 Calcium 9.2 mg/dL (8.5-10.1) 08/07/21 05:10 Corrected Calcium 10.4 mg/dL (8.5-10.1) H 08/07/21 05:10 Magnesium 2.2 mg/dL (1.7-2.9) 08/07/21 05:10 Magnesium Cancelled 08/07/21 05:10 Total Bilirubin 0.60 mg/dL (0.2-1.0) 08/07/21 05:10 AST 29 Units/L (15-37) 08/07/21 05:10 ALT 30 Units/L (12-78) 08/07/21 05:10 Alkaline Phosphatase 49 Units/L (46-116) 08/07/21 05:10 Creatine Kinase 363 Units/L (26-192) H 07/31/21 19:18 C-Reactive Protein 85.80 mg/L (0-3.0) H 08/07/21 05:10 Total Protein 5.8 g/dL (6.4-8.2) L 08/07/21 05:10 Albumin 2.5 g/dL (3.4-5.0) L 08/07/21 05:10 Globulin 3.3 g/dL (2.5-4.5) 08/07/21 05:10 Albumin/Globulin Ratio 0.8 Ratio (1.1-2.1) L 08/07/21 05:10 Specimen Type Catherized urine 08/02/21 05:00 Urine Color Pale yellow (YELLOW) 08/02/21 05:00 Urine Appearance Clear (CLEAR) 08/02/21 05:00 Urine pH 5.0 (5.0 - 8.0) 08/02/21 05:00 Ur Specific [place] 1.020 (1.000-1.030) 08/02/21 05:00 Urine Protein 1+ (NEGATIVE) 08/02/21 05:00 Urine Glucose (UA) 3+ (NEGATIVE) 08/02/21 05:00 Urine Ketones 1+ (NEGATIVE) 08/02/21 05:00 Urine Occult Blood Negative (NEGATIVE) 08/02/21 05:00 Urine Nitrite Negative (NEGATIVE) 08/02/21 05:00 Urine Bilirubin Negative (NEGATIVE) 08/02/21 05:00 Urine Urobilinogen Normal (NORMAL) 08/02/21 05:00 Ur Leukocyte Esterase Negative (NEGATIVE) 08/02/21 05:00 Urine RBC None seen /HPF (0-3) 08/02/21 05:00 Urine WBC None seen /HPF (0-5) 08/02/21 05:00 Ur Squamous Epith Cells Rare /HPF (NEGATIVE) 08/02/21 05:00 Amorphous Sediment 1+ /HPF (NEGATIVE) 08/02/21 05:00 Urine Bacteria Trace /HPF (NEGATIVE) 08/02/21 05:00 Ur Culture Indicated? No/not indicated 08/02/21 05:00 SARS CoV-2 RNA Rapid MARA Positive (NEGATIVE) A 07/31/21 21:10 Radiology Reviewed: Yes Plan (1) Dehydration: Status: Acute Plan: Increasing IVF to 50 ml/hr (2) Hypokalemia: Status: Acute Plan: Potassium replacement protocol. (3) Hypernatremia: Status: Acute Plan: Changing IVF to 1/4 NS. (4) Pneumonia due to COVID-19 virus: Status: Acute (5) Dementia: Status: Acute Qualifiers: Dementia type: unspecified type Dementia behavioral disturbance: without behavioral disturbance Qualified Code(s): F03.90 - Unspecified dementia without behavioral disturbance (6) Acute hyponatremia: Status: Resolved (7) AMS (altered mental status): Status: Acute Qualifiers: Altered mental status type: disorientation Qualified Code(s): R41.0 - Disorientation, unspecified (8) Weakness: Status: Acute (9) COVID-19: Status: Acute (10) Pansinusitis: Status: Acute Qualifiers: Chronicity: acute Recurrence: not specified as recurrent Qualified Code(s): J01.40 - Acute pansinusitis, unspecified (11) Hypoglycemia: Status: Acute (12) Dysphagia: Status: Acute Qualifiers: Dysphagia type: unspecified Qualified Code(s): R13.10 - Dysphagia, unspecified (13) Fall: Status: Acute Qualifiers: Encounter type: sequela Qualified Code(s): W19.XXXS - Unspecified fall, sequela
[2021-08-07] MEDS: SNACK - Diabetic Appropriate PO SCH (20:30)
[2021-08-07] MEDS: NORVASC TAB 5 MG PO SCH (22:15)
[2021-08-07] MEDS: ZOCOR TAB 20 MG PO SCH (22:15)
[2021-08-07] MEDS: APRESOLINE INJ 20 MG VIAL IVP PRN (23:05)
[2021-08-08] MEDS: MORPHINE SULFATE INJ 2 MG INJ IVP PRN ×2 (02:28→20:52)
[2021-08-08] MEDS: ASCORBIC ACID INJ MULTI-DOSE VIAL 1,500 MG in NS 50 ML IV 50 ML IV SCH ×4 (03:10→20:44)
[2021-08-08 05:06] LABS: BASOPHILS % (AUTO) 0.1 % (0.2-1.0); HEMATOCRIT 35.5 % (36.0-47.0); HEMOGLOBIN 12.1 g/dL (12.0-16.0); LYMPHOCYTES # (AUTO) 0.3 X10^3/uL (1.3-2.9); LYMPHOCYTES % (AUTO) 4.4 % (21.0-51.0); MEAN CORPUSCULAR HEMOGLOBIN 32.7 pg (27.0-34.0); MEAN CORPUSCULAR HGB CONC 34.1 g/dL (33.0-35.0); MEAN CORPUSCULAR VOLUME 95.8 fL (80.0-100.0); MEAN PLATELET VOLUME 7.4 fL (7.4-11.0); MONOCYTES # (AUTO) 0.2 x10^3/uL (0.3-0.8); MONOCYTES % (AUTO) 2.9 % (0.0-13.0); NEUTROPHILS # (AUTO) 6.8 x10^3/uL (2.2-4.8); NEUTROPHILS % (AUTO) 92.6 % (42.0-75.0); PLATELET COUNT 226 X10^3/uL (150.0-450.0); RED BLOOD COUNT 3.71 X10^6/uL (3.5-5.4); RED CELL DISTRIBUTION WIDTH 14.9 % (11.6-16.5); WHITE BLOOD COUNT 7.3 X10^3/uL (3.6-10.0)
[2021-08-08 05:13] LABS: ALBUMIN 2.3 g/dL (3.4-5.0); CALCIUM 9.2 mg/dL (8.5-10.1); CARBON DIOXIDE 26.4 mmol/L (21-32); COR CA(FOR HYPOALB) 10.6 mg/dL (8.5-10.1); CREATININE 1.29 mg/dL (0.55-1.02); TOTAL PROTEIN 5.3 g/dL (6.4-8.2)
[2021-08-08 05:13] LABS: ABG BASE EXCESS 0.2 mmol/L (-2.0-2.0); ABG HCO3 23.3 mmol/L (22-26)
[2021-08-08 05:17] LABS: ABG ALLEN TEST POS
[2021-08-08] MEDS: DUONEB 0.5 MG/3 MG (3 mL) NEB SCH ×3 (05:27→21:29)
[2021-08-08 05:44] LABS: BAND NEUTROPHILS % 1 % (0-10); PLATELET MORPHOLOGY COMMENT NORMAL (NORMAL)
[2021-08-08] MEDS: MIRAPEX TAB 0.25 MG PO SCH ×3 (06:00→21:51)
[2021-08-08] MEDS: ZOSYN VIAL 3.375 GRAMS 3.375 G in NS 100 ML IV + SPIKE MINIBAG* 100 ML IV SCH ×3 (06:10→21:51)
[2021-08-08] MEDS: NovoLIN R (or HumuLIN R) SUBCUT PRN ×4 (06:50→21:07)
[2021-08-08] MEDS ORDERED: TOPROL XL PO ONE (08:30)
[2021-08-08] MEDS ORDERED: ZESTRIL TAB 20 MG ONE (08:30)
[2021-08-08] MEDS: TOPROL XL PO SCH (08:53)
[2021-08-08] MEDS: ASPIRIN EC 81 MG PO SCH (08:54)
[2021-08-08] MEDS: ZESTRIL TAB 20 MG PO SCH (08:54)
[2021-08-08] MEDS: CITRACAL + VITAMIN D PO SCH (08:54)
[2021-08-08] MEDS: NYSTATIN SUSP PO SCH ×4 (08:55→20:45)
[2021-08-08] MEDS: REMDESIVIR 100 MG in NS 250 ML IV 250 ML IV SCH (08:55)
[2021-08-08] MEDS: FERROUS GLUCONATE PO SCH (08:55)
[2021-08-08] MEDS: LOVENOX INJ 40 MG SYR SC SCH (08:55)
[2021-08-08] MEDS: ZITHROMAX INJ 500 MG VIAL 500 MG in NS 250 ML IV 250 ML IV SCH (08:56)
[2021-08-08] MEDS: SOLU-Medrol 40 MG VIAL IVP SCH ×2 (08:56→20:46)
[2021-08-08] MEDS: PEPCID 20 MG IV PREMIX* 20 MG/50 ML BAG IV SCH (08:56)
[2021-08-08] MEDS: EXELON PO SCH ×2 (09:18→20:44)
[2021-08-08] MEDS: BROVANA IN SCH ×2 (09:43→21:29)
[2021-08-08] MEDS: PULMICORT NEB TX 0.5 MG NEB SCH ×2 (09:44→21:29)
[2021-08-08] MEDS: STERILE WATER FOR INJECTION 1,000 ML with SODIUM CHL CONCENTRATE* 23.4% 34 MEQ IV SCH ×2 (10:00)
[2021-08-08] MEDS: K-RIDER 10 MEQ/NS 100 ML 10 MEQ/100 ML BAG IV PRN ×4 (11:42→15:48)
--- NOTE | 2021-08-08 16:30 | PCM.PROG ---
Progress Note Progress Note for Day of Date of Exam: 08/08/21 Subjective Subjective: Patient seen at bedside, overnight her BP was elevated again. She does not answer questions at this time. Na is elevated again this am and is higher than yesterday. She was started on 1/4 NS yesterday. Labs reviewed Plan: Continue ICU COVID-19 protocol. Wean O2 as tolerated to keep sats > 92%. Continue zofran prn. Continue IV Zosyn, azithromycin and nebs. Continue Remedisvir and Solumedrol. Blood Cx no growth so far. Continue Vitamin C. Continue SSI. Continue nystatin swish and swallow prn. Continue pureed diet. Continue IV hydralazine prn for SBP > 160. Continue lisinopril and metoprolol succinate. Increase amlodipine to 10 mg qhS. Continue PT/OT, recommended SNF. Monitor AM labs/imaging. Time spent for clinical assessment, reviewing labs/imaging, physical exam, dec ision making and documentation greater than 45 mins. Past Medical Family Social History Past Med/Fam/Surg Hx: No changes since H&P Allergies: Allergies No Known Drug Allergies Allergy (Unverified 07/31/21 19:05) Review of Systems ROS: No change since H&P Vital Signs and I&O's Vital Signs: Temperature 98.2 F Pulse Rate [Left Radial] 79 Pulse Rate 93 Respiratory Rate 27 Blood Pressure [Left Arm] 159/69 Blood Pressure [Right Arm] 156/68 Blood Pressure 203/81 O2 Sat by Pulse Oximetry 93 Intake and Output: Intake & Output 08/06/21 08/07/21 08/08/21 08/09/21 11:59 11:59 11:59 11:59 Intake Total 2410 / 2410 2193 / 2193 2086 Output Total 100 / 100 Balance 2410 / 2410 2092 Physical Exam Oriented: Unable to test Eyes: Normal Ear: Normal Nose: Normal Throat: Dry and Other (oral thrush noted ) Respiratory: Generalized and Diminished Cardiovascular: Normal Auscultation: Bowel Sounds: Normal Tenderness: Normal Skin: Decreased Turgur Psychiatric: Normal Mood Description: Calm Affect: Normal Speech Pattern: Clear Laboratory and Diagnostics Result Diagrams: 08/08/21 04:18 08/08/21 04:18 Labs: 08/03/21 20:04 Blood Blood Culture - Preliminary 08/03/21 19:52 Blood Blood Culture - Preliminary Laboratory WBC 7.3 X10^3/uL (3.6-10.0) 08/08/21 04:18 RBC 3.71 X10^6/uL (3.5-5.4) 08/08/21 04:18 Hgb 12.1 g/dL (12.0-16.0) 08/08/21 04:18 Hct 35.5 % (36.0-47.0) L 08/08/21 04:18 MCV 95.8 fL (80.0-100.0) 08/08/21 04:18 MCH 32.7 pg (27.0-34.0) 08/08/21 04:18 MCHC 34.1 g/dL (33.0-35.0) 08/08/21 04:18 RDW 14.9 % (11.6-16.5) 08/08/21 04:18 Plt Count 226 X10^3/uL (150.0-450.0) 08/08/21 04:18 Plt Count Comment Adequate (ADEQUATE) 08/08/21 04:18 MPV 7.4 fL (7.4-11.0) 08/08/21 04:18 Neut % (Auto) 92.6 % (42.0-75.0) H 08/08/21 04:18 Lymph % (Auto) 4.4 % (21.0-51.0) L 08/08/21 04:18 [place] % (Auto) 2.9 % (0.0-13.0) 08/08/21 04:18 Eos % (Auto) 0.0 % (0.9-2.9) L 08/08/21 04:18 Baso % (Auto) 0.1 % (0.2-1.0) L 08/08/21 04:18 Neut # (Auto) 6.8 x10^3/uL (2.2-4.8) H 08/08/21 04:18 Lymph # (Auto) 0.3 X10^3/uL (1.3-2.9) L 08/08/21 04:18 [place] # (Auto) 0.2 x10^3/uL (0.3-0.8) L 08/08/21 04:18 Eos # (Auto) 0.0 x10^3/uL (0.0-0.2) 08/08/21 04:18 Baso # (Auto) 0.0 X10^3/uL (0.0-0.1) 08/08/21 04:18 Absolute Nucleated RBC 0.0 /100WBC 08/08/21 04:18 Total Counted 100 08/08/21 04:18 Neutrophils % (Manual) 92 % (39-76) H 08/08/21 04:18 Band Neutrophils % 1 % (0-10) 08/08/21 04:18 Lymphocytes % (Manual) 5 % (13-43) L 08/08/21 04:18 Monocytes % (Manual) 2 % (4-9) L 08/08/21 04:18 Smudge Cells 2+ A 08/01/21 05:51 Plt Morphology Comment Normal (NORMAL) 08/08/21 04:18 RBC Morphology Normal (NORMAL) 08/08/21 04:18 Sample Site Lr 08/08/21 06:00 ABG pH 7.470 (7.35-7.45) H 08/08/21 06:00 ABG pCO2 32.0 mmHg (35.0-45.0) L 08/08/21 06:00 ABG pO2 50.0 mmHg (80.0-100.0) L 08/08/21 06:00 ABG HCO3 23.3 mmol/L (22-26) 08/08/21 06:00 ABG O2 Saturation 88.0 % (90-100) L 08/08/21 06:00 ABG Base Excess 0.2 mmol/L (-2.0-2.0) 08/08/21 06:00 Jesse Test Pos 08/08/21 06:00 A-a Gradient 459.0 mmHg 08/08/21 06:00 FiO2 77.0 08/08/21 06:00 Blood Gas Comments Cristian well sw 08/08/21 06:00 Sodium 154 mmol/L (136-145) H* 08/08/21 04:18 Corrected Sodium 158 mmol/L (136-145) H 08/08/21 04:18 Potassium 3.3 mmol/L (3.5-5.1) L 08/08/21 04:18 Chloride 117 mmol/L (98-107) H* 08/08/21 04:18 Carbon Dioxide 26.4 mmol/L (21-32) 08/08/21 04:18 BUN 41 mg/dL (7-18) H 08/08/21 04:18 Creatinine 1.29 mg/dL (0.55-1.02) H 08/08/21 04:18 Est GFR (MDRD) Af Amer 50 (>60) L 08/08/21 04:18 Est GFR (MDRD) Non-Af 41 (>60) L 08/08/21 04:18 Glucose 286 mg/dL (65-99) H 08/08/21 04:18 POC Glucose (mg/dL) 215 mg/dL (65-99) H 08/08/21 11:49 Calcium 9.2 mg/dL (8.5-10.1) 08/08/21 04:18 Corrected Calcium 10.6 mg/dL (8.5-10.1) H 08/08/21 04:18 Magnesium 2.3 mg/dL (1.7-2.9) 08/08/21 04:18 Total Bilirubin 0.80 mg/dL (0.2-1.0) 08/08/21 04:18 AST 27 Units/L (15-37) 08/08/21 04:18 ALT 28 Units/L (12-78) 08/08/21 04:18 Alkaline Phosphatase 50 Units/L (46-116) 08/08/21 04:18 Creatine Kinase 363 Units/L (26-192) H 07/31/21 19:18 C-Reactive Protein 85.80 mg/L (0-3.0) H 08/07/21 05:10 Total Protein 5.3 g/dL (6.4-8.2) L 08/08/21 04:18 Albumin 2.3 g/dL (3.4-5.0) L 08/08/21 04:18 Globulin 3.0 g/dL (2.5-4.5) 08/08/21 04:18 Albumin/Globulin Ratio 0.8 Ratio (1.1-2.1) L 08/08/21 04:18 Specimen Type Catherized urine 08/02/21 05:00 Urine Color Pale yellow (YELLOW) 08/02/21 05:00 Urine Appearance Clear (CLEAR) 08/02/21 05:00 Urine pH 5.0 (5.0 - 8.0) 08/02/21 05:00 Ur Specific [place] 1.020 (1.000-1.030) 08/02/21 05:00 Urine Protein 1+ (NEGATIVE) 08/02/21 05:00 Urine Glucose (UA) 3+ (NEGATIVE) 08/02/21 05:00 Urine Ketones 1+ (NEGATIVE) 08/02/21 05:00 Urine Occult Blood Negative (NEGATIVE) 08/02/21 05:00 Urine Nitrite Negative (NEGATIVE) 08/02/21 05:00 Urine Bilirubin Negative (NEGATIVE) 08/02/21 05:00 Urine Urobilinogen Normal (NORMAL) 08/02/21 05:00 Ur Leukocyte Esterase Negative (NEGATIVE) 08/02/21 05:00 Urine RBC None seen /HPF (0-3) 08/02/21 05:00 Urine WBC None seen /HPF (0-5) 08/02/21 05:00 Ur Squamous Epith Cells Rare /HPF (NEGATIVE) 08/02/21 05:00 Amorphous Sediment 1+ /HPF (NEGATIVE) 08/02/21 05:00 Urine Bacteria Trace /HPF (NEGATIVE) 08/02/21 05:00 Ur Culture Indicated? No/not indicated 08/02/21 05:00 SARS CoV-2 RNA Rapid MARA Positive (NEGATIVE) A 07/31/21 21:10 Plan (1) HTN (hypertension), malignant: Status: Acute Narrative Support Text: HTN uncontrolled. Plan: Will adjust BP meds. (2) Dehydration: Status: Acute Plan: Increasing IVF to 50 ml/hr (3) Hypokalemia: Status: Acute Plan: Potassium replacement protocol. (4) Hypernatremia: Status: Acute Narrative Support Text: Sodium level has increased to 154 Plan: Changing IVF to 1/4 NS. (5) Pneumonia due to COVID-19 virus: Status: Acute (6) Dementia: Status: Acute Qualifiers: Dementia type: unspecified type Dementia behavioral disturbance: witho ut behavioral disturbance Qualified Code(s): F03.90 - Unspecified dementia without behavioral disturbance (7) Acute hyponatremia: Status: Resolved (8) AMS (altered mental status): Status: Acute Qualifiers: Altered mental status type: disorientation Qualified Code(s): R41.0 - Disorientation, unspecified (9) Weakness: Status: Acute (10) COVID-19: Status: Acute (11) Pansinusitis: Status: Acute Qualifiers: Chronicity: acute Recurrence: not specified as recurrent Qualified Code(s): J01.40 - Acute pansinusitis, unspecified (12) Hypoglycemia: Status: Acute (13) Dysphagia: Status: Acute Qualifiers: Dysphagia type: unspecified Qualified Code(s): R13.10 - Dysphagia, unspecified (14) Fall: Status: Acute Qualifiers: Encounter type: sequela Qualified Code(s): W19.XXXS - Unspecified fall, sequela
[2021-08-08] MEDS ORDERED: CATAPRES-TTS-3 TD ONE (17:28)
[2021-08-08] MEDS: CATAPRES-TTS-3 TD SCH (17:56)
[2021-08-08] MEDS: APRESOLINE INJ 20 MG VIAL IVP PRN (20:30)
[2021-08-08] MEDS: SNACK - Diabetic Appropriate PO SCH (20:44)
[2021-08-08] MEDS: NORVASC TAB 5 MG PO SCH (20:45)
[2021-08-08] MEDS: ZOCOR TAB 20 MG PO SCH (20:46)
[2021-08-09] MEDS: K-RIDER 10 MEQ/NS 100 ML 10 MEQ/100 ML BAG IV PRN ×5 (00:39→23:28)
[2021-08-09] MEDS: STERILE WATER FOR INJECTION 1,000 ML with SODIUM CHL CONCENTRATE* 23.4% 34 MEQ IV SCH ×4 (03:18→23:30)
[2021-08-09] MEDS: MORPHINE SULFATE INJ 2 MG INJ IVP PRN (03:19)
[2021-08-09] MEDS: ASCORBIC ACID INJ MULTI-DOSE VIAL 1,500 MG in NS 50 ML IV 50 ML IV SCH ×4 (03:57→20:20)
[2021-08-09 05:16] LABS: BASOPHILS % (AUTO) 0.1 % (0.2-1.0); HEMATOCRIT 34.7 % (36.0-47.0); HEMOGLOBIN 11.9 g/dL (12.0-16.0); LYMPHOCYTES # (AUTO) 0.3 X10^3/uL (1.3-2.9); LYMPHOCYTES % (AUTO) 3.2 % (21.0-51.0); MEAN CORPUSCULAR HEMOGLOBIN 32.9 pg (27.0-34.0); MEAN CORPUSCULAR HGB CONC 34.3 g/dL (33.0-35.0); MEAN CORPUSCULAR VOLUME 95.8 fL (80.0-100.0); MEAN PLATELET VOLUME 7.9 fL (7.4-11.0); MONOCYTES # (AUTO) 0.3 x10^3/uL (0.3-0.8); MONOCYTES % (AUTO) 3.1 % (0.0-13.0); NEUTROPHILS # (AUTO) 8.1 x10^3/uL (2.2-4.8); NEUTROPHILS % (AUTO) 93.6 % (42.0-75.0); PLATELET COUNT 213 X10^3/uL (150.0-450.0); RED BLOOD COUNT 3.62 X10^6/uL (3.5-5.4); WHITE BLOOD COUNT 8.7 X10^3/uL (3.6-10.0)
[2021-08-09 05:29] LABS: ALBUMIN 2.2 g/dL (3.4-5.0); CALCIUM 9.1 mg/dL (8.5-10.1); CARBON DIOXIDE 23.6 mmol/L (21-32); COR CA(FOR HYPOALB) 10.5 mg/dL (8.5-10.1); CREATININE 1.24 mg/dL (0.55-1.02); TOTAL PROTEIN 5.1 g/dL (6.4-8.2)
[2021-08-09 05:37] LABS: BAND NEUTROPHILS % 2 % (0-10); PLATELET MORPHOLOGY COMMENT NORMAL (NORMAL)
[2021-08-09] MEDS: DUONEB 0.5 MG/3 MG (3 mL) NEB SCH ×3 (05:50→21:17)
[2021-08-09] MEDS: MIRAPEX TAB 0.25 MG PO SCH ×3 (06:13→23:30)
[2021-08-09] MEDS: ZOSYN VIAL 3.375 GRAMS 3.375 G in NS 100 ML IV + SPIKE MINIBAG* 100 ML IV SCH ×2 (06:13→13:18)
[2021-08-09] MEDS: NovoLIN R (or HumuLIN R) SUBCUT PRN ×4 (06:16→20:20)
--- NOTE | 2021-08-09 06:28 | RAD ---
HISTORYCOVID PNEUMONIASTUDYCHEST, 1 [id number]/11/2021.TECHNIQUEAP view of the chestFINDINGSCardiac and mediastinal contours are within normal limits. No significant change in near diffuse bilateral airspace opacities. Cannot exclude small left pleural effusion. No pneumothorax.IMPRESSIONNo significant change.Electronically signed by: Vishal Huff (Aug 09, 2021 06:27:34)
[2021-08-09] MEDS ORDERED: ZESTRIL TAB 20 MG ONE (09:07)
[2021-08-09] MEDS ORDERED: TOPROL XL PO ONE (09:08)
[2021-08-09] MEDS: LOVENOX INJ 40 MG SYR SC SCH (09:21)
[2021-08-09] MEDS: PEPCID 20 MG IV PREMIX* 20 MG/50 ML BAG IV SCH (09:25)
[2021-08-09] MEDS: ZITHROMAX INJ 500 MG VIAL 500 MG in NS 250 ML IV 250 ML IV SCH (09:26)
[2021-08-09] MEDS: SOLU-Medrol 40 MG VIAL IVP SCH ×2 (09:26→20:20)
[2021-08-09] MEDS: REMDESIVIR 100 MG in NS 250 ML IV 250 ML IV SCH (09:26)
[2021-08-09] MEDS: PULMICORT NEB TX 0.5 MG NEB SCH ×2 (10:04→21:17)
[2021-08-09] MEDS: BROVANA IN SCH ×2 (10:04→21:17)
[2021-08-09] MEDS: ASPIRIN EC 81 MG PO SCH (10:57)
[2021-08-09] MEDS: FERROUS GLUCONATE PO SCH (10:58)
[2021-08-09] MEDS: TOPROL XL PO SCH (10:58)
[2021-08-09] MEDS: CITRACAL + VITAMIN D PO SCH (10:58)
[2021-08-09] MEDS: NYSTATIN SUSP PO SCH ×4 (10:58→23:29)
[2021-08-09] MEDS: EXELON PO SCH ×2 (10:58→23:29)
[2021-08-09] MEDS: ZESTRIL TAB 20 MG PO SCH (10:59)
--- NOTE | 2021-08-09 15:14 | PCM.PROG ---
Progress Note Progress Note for Day of Date of Exam: 08/09/21 Subjective Subjective: Patient is more confused this am. Her Na is now 160. O2 sats are running in the upper 90's. Cr is down from yesterday. I will stop her Zoysn this am as it is a source of a large amount of extra Sodium. Past Medical Family Social History Past Med/Fam/Surg Hx: No changes since H&P Allergies: Allergies No Known Drug Allergies Allergy (Unverified 07/31/21 19:05) Review of Systems ROS: No change since H&P and Changes notes (describe) ROS changes noted: Worsening confusion. Vital Signs and I&O's Vital Signs: Temperature 98.6 F Pulse Rate [Left Radial] 79 Pulse Rate 102 Respiratory Rate 23 Blood Pressure [Left Arm] 159/69 Blood Pressure [Right Arm] 156/68 Blood Pressure 150/65 O2 Sat by Pulse Oximetry 97 Intake and Output: Intake & Output 08/07/21 08/08/21 08/09/21 08/10/21 11:59 11:59 11:59 11:59 Intake Total 2193 / 2193 2086 / 2086 2638 / 2638 Output Total 100 / 100 300 / 300 Balance 2092 / 2092 2086 / 2086 2338 / 2338 Physical Exam Oriented: Unable to test Eyes: Normal Ear: Normal Nose: Normal Throat: Dry and Other (oral thrush noted ) Respiratory: Generalized and Diminished Cardiovascular: Normal Auscultation: Bowel Sounds: Normal Tenderness: Normal Skin: Decreased Turgur Psychiatric: Normal Mood Description: Calm Affect: Normal Speech Pattern: Unclear and Inappropriate Laboratory and Diagnostics Result Diagrams: 08/09/21 04:24 08/09/21 04:24 Labs: 08/03/21 20:04 Blood Blood Culture - Final 08/03/21 19:52 Blood Blood Culture - Final Laboratory WBC 8.7 X10^3/uL (3.6-10.0) 08/09/21 04:24 RBC 3.62 X10^6/uL (3.5-5.4) 08/09/21 04:24 Hgb 11.9 g/dL (12.0-16.0) L 08/09/21 04:24 Hct 34.7 % (36.0-47.0) L 08/09/21 04:24 MCV 95.8 fL (80.0-100.0) 08/09/21 04:24 MCH 32.9 pg (27.0-34.0) 08/09/21 04:24 MCHC 34.3 g/dL (33.0-35.0) 08/09/21 04:24 RDW 15.0 % (11.6-16.5) 08/09/21 04:24 Plt Count 213 X10^3/uL (150.0-450.0) 08/09/21 04:24 Plt Count Comment Adequate (ADEQUATE) 08/09/21 04:24 MPV 7.9 fL (7.4-11.0) 08/09/21 04:24 Neut % (Auto) 93.6 % (42.0-75.0) H 08/09/21 04:24 Lymph % (Auto) 3.2 % (21.0-51.0) L 08/09/21 04:24 [place] % (Auto) 3.1 % (0.0-13.0) 08/09/21 04:24 Eos % (Auto) 0.0 % (0.9-2.9) L 08/09/21 04:24 Baso % (Auto) 0.1 % (0.2-1.0) L 08/09/21 04:24 Neut # (Auto) 8.1 x10^3/uL (2.2-4.8) H 08/09/21 04:24 Lymph # (Auto) 0.3 X10^3/uL (1.3-2.9) L 08/09/21 04:24 [place] # (Auto) 0.3 x10^3/uL (0.3-0.8) 08/09/21 04:24 Eos # (Auto) 0.0 x10^3/uL (0.0-0.2) 08/09/21 04:24 Baso # (Auto) 0.0 X10^3/uL (0.0-0.1) 08/09/21 04:24 Absolute Nucleated RBC 0.1 /100WBC 08/09/21 04:24 Total Counted 100 08/09/21 04:24 Neutrophils % (Manual) 90 % (39-76) H 08/09/21 04:24 Band Neutrophils % 2 % (0-10) 08/09/21 04:24 Lymphocytes % (Manual) 4 % (13-43) L 08/09/21 04:24 Monocytes % (Manual) 4 % (4-9) 08/09/21 04:24 Smudge Cells 2+ A 08/01/21 05:51 Plt Morphology Comment Normal (NORMAL) 08/09/21 04:24 RBC Morphology Normal (NORMAL) 08/09/21 04:24 Sample Site Lr 08/08/21 06:00 ABG pH 7.470 (7.35-7.45) H 08/08/21 06:00 ABG pCO2 32.0 mmHg (35.0-45.0) L 08/08/21 06:00 ABG pO2 50.0 mmHg (80.0-100.0) L 08/08/21 06:00 ABG HCO3 23.3 mmol/L (22-26) 08/08/21 06:00 ABG O2 Saturation 88.0 % (90-100) L 08/08/21 06:00 ABG Base Excess 0.2 mmol/L (-2.0-2.0) 08/08/21 06:00 Jesse Test Pos 08/08/21 06:00 A-a Gradient 459.0 mmHg 08/08/21 06:00 FiO2 77.0 08/08/21 06:00 Blood Gas Comments [facility] well 08/08/21 06:00 Sodium 155 mmol/L (136-145) H* 08/09/21 04:24 Corrected Sodium 160 mmol/L (136-145) H 08/09/21 04:24 Potassium 3.8 mmol/L (3.5-5.1) 08/09/21 04:24 Chloride 119 mmol/L (98-107) H* 08/09/21 04:24 Carbon Dioxide 23.6 mmol/L (21-32) 08/09/21 04:24 BUN 46 mg/dL (7-18) H 08/09/21 04:24 Creatinine 1.24 mg/dL (0.55-1.02) H 08/09/21 04:24 Est GFR (MDRD) Af Amer 52 (>60) L 08/09/21 04:24 Est GFR (MDRD) Non-Af 43 (>60) L 08/09/21 04:24 Glucose 299 mg/dL (65-99) H 08/09/21 04:24 POC Glucose (mg/dL) 208 mg/dL (65-99) H 08/09/21 11:19 Calcium 9.1 mg/dL (8.5-10.1) 08/09/21 04:24 Corrected Calcium 10.5 mg/dL (8.5-10.1) H 08/09/21 04:24 Magnesium 2.3 mg/dL (1.7-2.9) 08/09/21 04:24 Total Bilirubin 1.00 mg/dL (0.2-1.0) 08/09/21 04:24 AST 29 Units/L (15-37) 08/09/21 04:24 ALT 28 Units/L (12-78) 08/09/21 04:24 Alkaline Phosphatase 60 Units/L (46-116) 08/09/21 04:24 Creatine Kinase 363 Units/L (26-192) H 07/31/21 19:18 C-Reactive Protein 85.80 mg/L (0-3.0) H 08/07/21 05:10 Total Protein 5.1 g/dL (6.4-8.2) L 08/09/21 04:24 Albumin 2.2 g/dL (3.4-5.0) L 08/09/21 04:24 Globulin 2.9 g/dL (2.5-4.5) 08/09/21 04:24 Albumin/Globulin Ratio 0.8 Ratio (1.1-2.1) L 08/09/21 04:24 Specimen Type Catherized urine 08/02/21 05:00 Urine Color Pale yellow (YELLOW) 08/02/21 05:00 Urine Appearance Clear (CLEAR) 08/02/21 05:00 Urine pH 5.0 (5.0 - 8.0) 08/02/21 05:00 Ur Specific [place] 1.020 (1.000-1.030) 08/02/21 05:00 Urine Protein 1+ (NEGATIVE) 08/02/21 05:00 Urine Glucose (UA) 3+ (NEGATIVE) 08/02/21 05:00 Urine Ketones 1+ (NEGATIVE) 08/02/21 05:00 Urine Occult Blood Negative (NEGATIVE) 08/02/21 05:00 Urine Nitrite Negative (NEGATIVE) 08/02/21 05:00 Urine Bilirubin Negative (NEGATIVE) 08/02/21 05:00 Urine Urobilinogen Normal (NORMAL) 08/02/21 05:00 Ur Leukocyte Esterase Negative (NEGATIVE) 08/02/21 05:00 Urine RBC None seen /HPF (0-3) 08/02/21 05:00 Urine WBC None seen /HPF (0-5) 08/02/21 05:00 Ur Squamous Epith Cells Rare /HPF (NEGATIVE) 08/02/21 05:00 Amorphous Sediment 1+ /HPF (NEGATIVE) 08/02/21 05:00 Urine Bacteria Trace /HPF (NEGATIVE) 08/02/21 05:00 Ur Culture Indicated? No/not indicated 08/02/21 05:00 SARS CoV-2 RNA Rapid MARA Positive (NEGATIVE) A 07/31/21 21:10 Radiology Reviewed: Yes Plan (1) Hypernatremia: Status: Acute Plan: IVF 1/4 NS. D/C Zosyn because of the high content of sodium it contains. (2) AMS (altered mental status): Status: Acute Qualifiers: Altered mental status type: disorientation Qualified Code(s): R41.0 - Disorientation, unspecified Narrative Support Text: Suspect its due to her hypernatrmia. Plan: Stopping Zosyn to decrease sodium content. (3) HTN (hypertension), malignant: Status: Acute Plan: Will adjust BP meds. (4) Dehydration: Status: Acute Narrative Support Text: Improved. Plan: Increasing IVF to 50 ml/hr (5) Hypokalemia: Status: Acute Plan: Potassium replacement protocol. (6) Pneumonia due to COVID-19 virus: Status: Acute (7) Dementia: Status: Acute Qualifiers: Dementia type: unspecified type Dementia behavioral disturbance: without behavioral disturbance Qualified Code(s): F03.90 - Unspecified dementia without behavioral disturbance (8) Acute hyponatremia: Status: Resolved (9) Weakness: Status: Acute (10) COVID-19: Status: Acute (11) Pansinusitis: Status: Acute Qualifiers: Chronicity: acute Recurrence: not specified as recurrent Qualified Code(s): J01.40 - Acute pansinusitis, unspecified (12) Hypoglycemia: Status: Acute (13) Dysphagia: Status: Acute Qualifiers: Dysphagia type: unspecified Qualified Code(s): R13.10 - Dysphagia, unspecified (14) Fall: Status: Acute Qualifiers: Encounter type: sequela Qualified Code(s): W19.XXXS - Unspecified fall, sequela
[2021-08-09 20:47] VITALS: BMI 25.2
[2021-08-09] MEDS: SNACK - Diabetic Appropriate PO SCH (23:26)
[2021-08-09] MEDS: ZOCOR TAB 20 MG PO SCH ×2 (23:29→23:30)
[2021-08-09] MEDS: NORVASC TAB 5 MG PO SCH (23:29)
[2021-08-10] MEDS: K-RIDER 10 MEQ/NS 100 ML 10 MEQ/100 ML BAG IV PRN (01:00)
[2021-08-10] MEDS: ASCORBIC ACID INJ MULTI-DOSE VIAL 1,500 MG in NS 50 ML IV 50 ML IV SCH ×4 (03:58→20:43)
[2021-08-10] MEDS: MORPHINE SULFATE INJ 2 MG INJ IVP PRN ×3 (04:37→23:22)
[2021-08-10 05:49] LABS: BASOPHILS % (AUTO) 0.1 % (0.2-1.0); HEMATOCRIT 35.3 % (36.0-47.0); HEMOGLOBIN 11.7 g/dL (12.0-16.0); LYMPHOCYTES # (AUTO) 0.4 X10^3/uL (1.3-2.9); LYMPHOCYTES % (AUTO) 3.2 % (21.0-51.0); MEAN CORPUSCULAR HGB CONC 33.1 g/dL (33.0-35.0); MEAN CORPUSCULAR VOLUME 96.5 fL (80.0-100.0); MEAN PLATELET VOLUME 8.1 fL (7.4-11.0); MONOCYTES # (AUTO) 0.3 x10^3/uL (0.3-0.8); MONOCYTES % (AUTO) 2.2 % (0.0-13.0); NEUTROPHILS # (AUTO) 11.1 x10^3/uL (2.2-4.8); NEUTROPHILS % (AUTO) 94.5 % (42.0-75.0); PLATELET COUNT 216 X10^3/uL (150.0-450.0); RED BLOOD COUNT 3.66 X10^6/uL (3.5-5.4); RED CELL DISTRIBUTION WIDTH 15.2 % (11.6-16.5); WHITE BLOOD COUNT 11.7 X10^3/uL (3.6-10.0)
[2021-08-10] MEDS: DUONEB 0.5 MG/3 MG (3 mL) NEB SCH ×3 (05:53→20:15)
[2021-08-10 06:05] LABS: ALBUMIN 2.3 g/dL (3.4-5.0); CALCIUM 9.3 mg/dL (8.5-10.1); CARBON DIOXIDE 20.9 mmol/L (21-32); COR CA(FOR HYPOALB) 10.7 mg/dL (8.5-10.1); CREATININE 1.24 mg/dL (0.55-1.02); TOTAL PROTEIN 5.3 g/dL (6.4-8.2)
[2021-08-10] MEDS: MIRAPEX TAB 0.25 MG PO SCH ×3 (06:21→22:19)
[2021-08-10] MEDS: NovoLIN R (or HumuLIN R) SUBCUT PRN ×3 (06:22→17:08)
[2021-08-10 07:18] LABS: BAND NEUTROPHILS % 3 % (0-10)
[2021-08-10 07:20] LABS: PLATELET MORPHOLOGY COMMENT NORMAL (NORMAL)
[2021-08-10] MEDS: PULMICORT NEB TX 0.5 MG NEB SCH ×2 (08:35→20:15)
[2021-08-10] MEDS: BROVANA IN SCH ×2 (08:35→20:15)
[2021-08-10] MEDS: ASPIRIN EC 81 MG PO SCH (09:08)
[2021-08-10] MEDS: NYSTATIN SUSP PO SCH ×4 (09:08→22:18)
[2021-08-10] MEDS: LOVENOX INJ 40 MG SYR SC SCH (09:08)
[2021-08-10] MEDS: FERROUS GLUCONATE PO SCH (09:08)
[2021-08-10] MEDS: CITRACAL + VITAMIN D PO SCH (09:08)
[2021-08-10] MEDS: EXELON PO SCH ×2 (09:08→20:43)
[2021-08-10] MEDS: SOLU-Medrol 40 MG VIAL IVP SCH ×2 (09:09→20:45)
[2021-08-10] MEDS: PEPCID 20 MG IV PREMIX* 20 MG/50 ML BAG IV SCH (09:09)
[2021-08-10] MEDS: ZESTRIL TAB 20 MG PO SCH (09:09)
[2021-08-10] MEDS: TOPROL XL PO SCH (09:09)
[2021-08-10] MEDS: APRESOLINE INJ 20 MG VIAL IVP PRN (09:10)
--- NOTE | 2021-08-10 14:52 | PCM.PROG ---
Progress Note Progress Note for Day of Date of Exam: 08/10/21 Subjective Subjective: Patient is less confused this am. Her Na is now 158 down from 160. O2 sats are running in the upper 90's. Cr is down from yesterday. Zoysn was stopped yesterday. She is on 1/4NS IVF now. GLU is 291 this am. Will add Levemir for better glycemic control. Past Medical Family Social History Past Med/Fam/Surg Hx: No changes since H&P Allergies: Allergies No Known Drug Allergies Allergy (Unverified 07/31/21 19:05) Review of Systems ROS: No change since H&P and Changes notes (describe) Vital Signs and I&O's Vital Signs: Temperature 98.3 F Pulse Rate [Left Radial] 79 Pulse Rate 108 Respiratory Rate 20 Blood Pressure [Left Arm] 159/69 Blood Pressure [Right Arm] 156/68 Blood Pressure 149/63 O2 Sat by Pulse Oximetry 92 Intake and Output: Intake & Output 08/08/21 08/09/21 08/10/21 08/11/21 11:59 11:59 11:59 11:59 Intake Total 2086 / 2086 2638 / 2638 2606 / 2606 Output Total 300 / 300 300 / 300 Balance 2086 / 2086 2338 / 2338 2306 / 2306 Physical Exam Oriented: Unable to test Eyes: Normal Ear: Normal Nose: Normal Throat: Dry and Other (oral thrush noted ) Respiratory: Generalized and Diminished Cardiovascular: Normal Auscultation: Bowel Sounds: Normal Tenderness: Normal Skin: Decreased Turgur Psychiatric: Normal Mood Description: Calm Affect: Normal Speech Pattern: Unclear and Inappropriate Laboratory and Diagnostics Result Diagrams: 08/10/21 05:15 08/10/21 05:15 Labs: 08/03/21 20:04 Blood Blood Culture - Final 08/03/21 19:52 Blood Blood Culture - Final Laboratory WBC 11.7 X10^3/uL (3.6-10.0) H 08/10/21 05:15 RBC 3.66 X10^6/uL (3.5-5.4) 08/10/21 05:15 Hgb 11.7 g/dL (12.0-16.0) L 08/10/21 05:15 Hct 35.3 % (36.0-47.0) L 08/10/21 05:15 MCV 96.5 fL (80.0-100.0) 08/10/21 05:15 MCH 32.0 pg (27.0-34.0) 08/10/21 05:15 MCHC 33.1 g/dL (33.0-35.0) 08/10/21 05:15 RDW 15.2 % (11.6-16.5) 08/10/21 05:15 Plt Count 216 X10^3/uL (150.0-450.0) 08/10/21 05:15 Plt Count Comment Adequate (ADEQUATE) 08/10/21 05:15 MPV 8.1 fL (7.4-11.0) 08/10/21 05:15 Neut % (Auto) 94.5 % (42.0-75.0) H 08/10/21 05:15 Lymph % (Auto) 3.2 % (21.0-51.0) L 08/10/21 05:15 [place] % (Auto) 2.2 % (0.0-13.0) 08/10/21 05:15 Eos % (Auto) 0.0 % (0.9-2.9) L 08/10/21 05:15 Baso % (Auto) 0.1 % (0.2-1.0) L 08/10/21 05:15 Neut # (Auto) 11.1 x10^3/uL (2.2-4.8) H 08/10/21 05:15 Lymph # (Auto) 0.4 X10^3/uL (1.3-2.9) L 08/10/21 05:15 [place] # (Auto) 0.3 x10^3/uL (0.3-0.8) 08/10/21 05:15 Eos # (Auto) 0.0 x10^3/uL (0.0-0.2) 08/10/21 05:15 Baso # (Auto) 0.0 X10^3/uL (0.0-0.1) 08/10/21 05:15 Absolute Nucleated RBC 0.1 /100WBC 08/10/21 05:15 Total Counted 100 08/10/21 05:15 Neutrophils % (Manual) 90 % (39-76) H 08/10/21 05:15 Band Neutrophils % 3 % (0-10) 08/10/21 05:15 Lymphocytes % (Manual) 5 % (13-43) L 08/10/21 05:15 Monocytes % (Manual) 2 % (4-9) L 08/10/21 05:15 Smudge Cells 2+ A 08/01/21 05:51 Plt Morphology Comment Normal (NORMAL) 08/10/21 05:15 RBC Morphology Normal (NORMAL) 08/10/21 05:15 Sample Site Lr 08/08/21 06:00 ABG pH 7.470 (7.35-7.45) H 08/08/21 06:00 ABG pCO2 32.0 mmHg (35.0-45.0) L 08/08/21 06:00 ABG pO2 50.0 mmHg (80.0-100.0) L 08/08/21 06:00 ABG HCO3 23.3 mmol/L (22-26) 08/08/21 06:00 ABG O2 Saturation 88.0 % (90-100) L 08/08/21 06:00 ABG Base Excess 0.2 mmol/L (-2.0-2.0) 08/08/21 06:00 Jesse Test Pos 08/08/21 06:00 A-a Gradient 459.0 mmHg 08/08/21 06:00 FiO2 77.0 08/08/21 06:00 Blood Gas Comments [facility] well 08/08/21 06:00 Sodium 153 mmol/L (136-145) H* 08/10/21 05:15 Corrected Sodium 158 mmol/L (136-145) H 08/10/21 05:15 Potassium 4.0 mmol/L (3.5-5.1) 08/10/21 05:15 Chloride 118 mmol/L (98-107) H* 08/10/21 05:15 Carbon Dioxide 20.9 mmol/L (21-32) L 08/10/21 05:15 BUN 50 mg/dL (7-18) H 08/10/21 05:15 Creatinine 1.24 mg/dL (0.55-1.02) H 08/10/21 05:15 Est GFR (MDRD) Af Amer 52 (>60) L 08/10/21 05:15 Est GFR (MDRD) Non-Af 43 (>60) L 08/10/21 05:15 Glucose 291 mg/dL (65-99) H 08/10/21 05:15 POC Glucose (mg/dL) 235 mg/dL (65-99) H 08/10/21 12:05 Calcium 9.3 mg/dL (8.5-10.1) 08/10/21 05:15 Corrected Calcium 10.7 mg/dL (8.5-10.1) H 08/10/21 05:15 Magnesium 2.3 mg/dL (1.7-2.9) 08/09/21 04:24 Total Bilirubin 1.00 mg/dL (0.2-1.0) 08/10/21 05:15 AST 33 Units/L (15-37) 08/10/21 05:15 ALT 26 Units/L (12-78) 08/10/21 05:15 Alkaline Phosphatase 71 Units/L (46-116) 08/10/21 05:15 Creatine Kinase 363 Units/L (26-192) H 07/31/21 19:18 C-Reactive Protein 85.80 mg/L (0-3.0) H 08/07/21 05:10 Total Protein 5.3 g/dL (6.4-8.2) L 08/10/21 05:15 Albumin 2.3 g/dL (3.4-5.0) L 08/10/21 05:15 Globulin 3.0 g/dL (2.5-4.5) 08/10/21 05:15 Albumin/Globulin Ratio 0.8 Ratio (1.1-2.1) L 08/10/21 05:15 Specimen Type Catherized urine 08/02/21 05:00 Urine Color Pale yellow (YELLOW) 08/02/21 05:00 Urine Appearance Clear (CLEAR) 08/02/21 05:00 Urine pH 5.0 (5.0 - 8.0) 08/02/21 05:00 Ur Specific [place] 1.020 (1.000-1.030) 08/02/21 05:00 Urine Protein 1+ (NEGATIVE) 08/02/21 05:00 Urine Glucose (UA) 3+ (NEGATIVE) 08/02/21 05:00 Urine Ketones 1+ (NEGATIVE) 08/02/21 05:00 Urine Occult Blood Negative (NEGATIVE) 08/02/21 05:00 Urine Nitrite Negative (NEGATIVE) 08/02/21 05:00 Urine Bilirubin Negative (NEGATIVE) 08/02/21 05:00 Urine Urobilinogen Normal (NORMAL) 08/02/21 05:00 Ur Leukocyte Esterase Negative (NEGATIVE) 08/02/21 05:00 Urine RBC None seen /HPF (0-3) 08/02/21 05:00 Urine WBC None seen /HPF (0-5) 08/02/21 05:00 Ur Squamous Epith Cells Rare /HPF (NEGATIVE) 08/02/21 05:00 Amorphous Sediment 1+ /HPF (NEGATIVE) 08/02/21 05:00 Urine Bacteria Trace /HPF (NEGATIVE) 08/02/21 05:00 Ur Culture Indicated? No/not indicated 08/02/21 05:00 SARS CoV-2 RNA Rapid MARA Positive (NEGATIVE) A 07/31/21 21:10 Radiology Reviewed: Yes Plan (1) Hypernatremia: Status: Acute Narrative Support Text: Improved since yesterday. Plan: IVF 1/4 NS. Zosyn stopped because of the high content of sodium it contains. Since stopping Zosyn her Na is now trending down. (2) AMS (altered mental status): Status: Acute Qualifiers: Altered mental status type: disorientation Qualified Code(s): R41.0 - Disorientation, unspecified Narrative Support Text: Mildly improved with dropping Sodium level. Plan: Monitor daily Na levels. (3) HTN (hypertension), malignant: Status: Acute Narrative Support Text: Much improved now. Plan: Will adjust BP meds. (4) Dehydration: Status: Acute Plan: Increasing IVF to 50 ml/hr (5) Hypokalemia: Status: Acute Plan: Potassium replacement protocol. (6) Pneumonia due to COVID-19 virus: Status: Acute Plan: Antibiotics have been stopped. Patient is afebrile now. Monitor for changes in respiratory status. (7) Dementia: Status: Acute Qualifiers: Dementia behavioral disturbance: without behavioral disturbance Dementia type: unspecified type Qualified Code(s): F03.90 - Unspecified dementia without behavioral disturbance (8) Acute hyponatremia: Status: Resolved (9) Weakness: Status: Acute (10) COVID-19: Status: Acute (11) Pansinusitis: Status: Acute Qualifiers: Chronicity: acute Recurrence: not specified as recurrent Qualified Code(s): J01.40 - Acute pansinusitis, unspecified (12) Hypoglycemia: Status: Acute (13) Dysphagia: Status: Acute Qualifiers: Dysphagia type: unspecified Qualified Code(s): R13.10 - Dysphagia, unspecified (14) Fall: Status: Acute Qualifiers: Encounter type: sequela Qualified Code(s): W19.XXXS - Unspecified fall, sequela
[2021-08-10] MEDS ORDERED: LEVEMIR SC ONE (19:32)
[2021-08-10] MEDS ORDERED: SNACK - Diabetic Appropriate PO SCH (20:00)
[2021-08-10] MEDS: SNACK - Diabetic Appropriate PO SCH (20:42)
[2021-08-10] MEDS: LEVEMIR SC SCH (20:44)
[2021-08-10] MEDS: NORVASC TAB 5 MG PO SCH (20:44)
[2021-08-10] MEDS: STERILE WATER FOR INJECTION 1,000 ML with SODIUM CHL CONCENTRATE* 23.4% 34 MEQ IV SCH ×2 (22:18)
[2021-08-10] MEDS: ZOCOR TAB 20 MG PO SCH (22:19)
[2021-08-11] MEDS: ASCORBIC ACID INJ MULTI-DOSE VIAL 1,500 MG in NS 50 ML IV 50 ML IV SCH ×5 (03:07→21:07)
[2021-08-11 05:10] LABS: BASOPHILS % (AUTO) 0.2 % (0.2-1.0); HEMOGLOBIN 10.5 g/dL (12.0-16.0); LYMPHOCYTES # (AUTO) 0.3 X10^3/uL (1.3-2.9); MEAN CORPUSCULAR HEMOGLOBIN 32.9 pg (27.0-34.0); MEAN CORPUSCULAR HGB CONC 34.1 g/dL (33.0-35.0); MEAN CORPUSCULAR VOLUME 96.6 fL (80.0-100.0); MEAN PLATELET VOLUME 8.8 fL (7.4-11.0); MONOCYTES # (AUTO) 0.2 x10^3/uL (0.3-0.8); MONOCYTES % (AUTO) 2.2 % (0.0-13.0); NEUTROPHILS # (AUTO) 6.9 x10^3/uL (2.2-4.8); NEUTROPHILS % (AUTO) 93.6 % (42.0-75.0); PLATELET COUNT 159 X10^3/uL (150.0-450.0); WHITE BLOOD COUNT 7.4 X10^3/uL (3.6-10.0)
[2021-08-11] MEDS: DUONEB 0.5 MG/3 MG (3 mL) NEB SCH ×4 (05:26→20:47)
[2021-08-11 05:35] LABS: CALCIUM 8.9 mg/dL (8.5-10.1); CARBON DIOXIDE 23.4 mmol/L (21-32); COR CA(FOR HYPOALB) 10.5 mg/dL (8.5-10.1); CREATININE 1.2 mg/dL (0.55-1.02); TOTAL PROTEIN 4.7 g/dL (6.4-8.2)
[2021-08-11 05:51] LABS: BAND NEUTROPHILS % 1 % (0-10); PLATELET MORPHOLOGY COMMENT NORMAL (NORMAL)
[2021-08-11 05:52] LABS: BURR CELLS SLIGHT
--- NOTE | 2021-08-11 05:54 | RAD ---
PROCEDURE: Chest X-ray 1 View .HISTORY: COVID+, HYPOXIA .TECHNIQUE: AP view .COMPARISON: 08/09/2021.TECHNICAL QUALITY: Satisfactory .FINDINGS:Unremarkable cardio mediastinal silhouette.Normal central vascularity.Continued moderate patchy consolidation both lung ba similar to previous study with no pneumothorax. Small effusion left lateral costophrenic angle that is unchanged.IMPRESSION:Unchanged bilateral pneumonia and small left pleural effusion.Electronically signed by: Bobby Smith (Aug 11, 2021 05:52:23)
[2021-08-11] MEDS: MIRAPEX TAB 0.25 MG PO SCH ×3 (06:01→21:07)
[2021-08-11] MEDS: NovoLIN R (or HumuLIN R) SUBCUT PRN ×3 (06:04→16:52)
[2021-08-11] MEDS: PULMICORT NEB TX 0.5 MG NEB SCH ×2 (08:00→20:47)
[2021-08-11] MEDS: BROVANA IN SCH ×2 (08:00→20:48)
[2021-08-11] MEDS: SOLU-Medrol 40 MG VIAL IVP SCH ×3 (08:21→21:07)
[2021-08-11] MEDS: LOVENOX INJ 40 MG SYR SC SCH (08:21)
[2021-08-11] MEDS: PEPCID 20 MG IV PREMIX* 20 MG/50 ML BAG IV SCH ×2 (08:22→10:15)
[2021-08-11] MEDS: LEVEMIR SC SCH ×2 (08:23→21:07)
[2021-08-11] MEDS: CITRACAL + VITAMIN D PO SCH (09:06)
[2021-08-11] MEDS: ASPIRIN EC 81 MG PO SCH (09:06)
[2021-08-11] MEDS: NYSTATIN SUSP PO SCH ×4 (09:07→20:53)
[2021-08-11] MEDS: EXELON PO SCH ×2 (09:07→20:52)
[2021-08-11] MEDS: ZESTRIL TAB 20 MG PO SCH (09:07)
[2021-08-11] MEDS: FERROUS GLUCONATE PO SCH (09:07)
[2021-08-11] MEDS: TOPROL XL PO SCH (09:08)
[2021-08-11 09:22] LABS: ABG ALLEN TEST POSITIVE; ABG BASE EXCESS -1.2 mmol/L (-2.0-2.0); ABG HCO3 20.1 mmol/L (22-26)
[2021-08-11] MEDS ORDERED: XYLOCAINE 1 % (PLAIN) ONE (09:47)
[2021-08-11] MEDS: MORPHINE SULFATE INJ 2 MG INJ IVP PRN (10:02)
[2021-08-11] MEDS: D5W 1,000 ML IV 1,000 ML IV SCH ×2 (10:52→23:43)
[2021-08-11 10:58] LABS: BILIRUBIN,URINE NEGATIVE (NEGATIVE); BLOOD/HEMOGLOBIN,URINE NEGATIVE (NEGATIVE); GLUCOSE, URINE 2+ (NEGATIVE); KETONES,URINE 1+ (NEGATIVE); LEUKOCYTE ESTERASE ,URINE NEGATIVE (NEGATIVE); NITRITES,URINE NEGATIVE (NEGATIVE); PROTEIN,URINE 2+ (NEGATIVE); UROBILINOGEN,URINE NORMAL (NORMAL)
[2021-08-11 11:09] LABS: APPEARANCE,URINE CLEAR (CLEAR); BACTERIA,URINE TRACE /HPF (NEGATIVE); COLOR,URINE YELLOW (YELLOW); RBC,URINE 0-2 /HPF (0-3); SQUAMOUS EPITHELIAL CELL,UR NUMEROUS /HPF (NEGATIVE)
[2021-08-11 11:10] LABS: HYALINE CASTS, URINE FEW /LPF (NEGATIVE); MUCUS,URINE MODERATE /HPF (NEGATIVE)
[2021-08-11] MEDS: CARDIZEM INJ 125 MG VIAL 125 MG in NS 100 ML IV 100 ML IV PRN (14:01)
[2021-08-11] MEDS: SNACK - Diabetic Appropriate PO SCH (20:51)
[2021-08-11] MEDS: NORVASC TAB 5 MG PO SCH (20:52)
[2021-08-11] MEDS: ZOCOR TAB 20 MG PO SCH (20:54)
[2021-08-12] MEDS: D5W 1,000 ML IV 1,000 ML IV SCH ×2 (02:53→18:13)
[2021-08-12] MEDS: ASCORBIC ACID INJ MULTI-DOSE VIAL 1,500 MG in NS 50 ML IV 50 ML IV SCH ×3 (02:53→20:23)
[2021-08-12 04:07] LABS: BASOPHILS % (AUTO) 0.1 % (0.2-1.0); HEMOGLOBIN 9.7 g/dL (12.0-16.0); LYMPHOCYTES # (AUTO) 0.2 X10^3/uL (1.3-2.9); LYMPHOCYTES % (AUTO) 1.9 % (21.0-51.0); MEAN CORPUSCULAR HEMOGLOBIN 33.2 pg (27.0-34.0); MEAN CORPUSCULAR HGB CONC 34.8 g/dL (33.0-35.0); MEAN CORPUSCULAR VOLUME 95.6 fL (80.0-100.0); MEAN PLATELET VOLUME 8.4 fL (7.4-11.0); MONOCYTES # (AUTO) 0.3 x10^3/uL (0.3-0.8); MONOCYTES % (AUTO) 2.8 % (0.0-13.0); NEUTROPHILS # (AUTO) 9.6 x10^3/uL (2.2-4.8); NEUTROPHILS % (AUTO) 95.2 % (42.0-75.0); PLATELET COUNT 131 X10^3/uL (150.0-450.0); RED BLOOD COUNT 2.93 X10^6/uL (3.5-5.4); RED CELL DISTRIBUTION WIDTH 15.3 % (11.6-16.5); WHITE BLOOD COUNT 10.1 X10^3/uL (3.6-10.0)
[2021-08-12 04:22] LABS: ALBUMIN 1.9 g/dL (3.4-5.0); CALCIUM 8.8 mg/dL (8.5-10.1); COR CA(FOR HYPOALB) 10.5 mg/dL (8.5-10.1); CREATININE 1.22 mg/dL (0.55-1.02); TOTAL PROTEIN 4.6 g/dL (6.4-8.2)
[2021-08-12 04:58] LABS: PLATELET MORPHOLOGY COMMENT NORMAL (NORMAL)
[2021-08-12] MEDS: MIRAPEX TAB 0.25 MG PO SCH (05:06)
[2021-08-12] MEDS: DUONEB 0.5 MG/3 MG (3 mL) NEB SCH ×3 (05:51→21:09)
[2021-08-12] MEDS: NovoLIN R (or HumuLIN R) SUBCUT PRN ×2 (06:03→12:03)
[2021-08-12] MEDS: CARDIZEM INJ 125 MG VIAL 125 MG in NS 100 ML IV 100 ML IV PRN (08:10)
[2021-08-12] MEDS: LEVEMIR SC SCH ×2 (08:44→20:25)
[2021-08-12] MEDS: ASPIRIN EC 81 MG PO SCH (08:45)
[2021-08-12] MEDS: CITRACAL + VITAMIN D PO SCH (08:46)
[2021-08-12] MEDS: EXELON PO SCH (08:46)
[2021-08-12] MEDS: LOVENOX INJ 40 MG SYR SC SCH (08:46)
[2021-08-12] MEDS: FERROUS GLUCONATE PO SCH (08:46)
[2021-08-12] MEDS: PEPCID 20 MG IV PREMIX* 20 MG/50 ML BAG IV SCH (08:47)
[2021-08-12] MEDS: TOPROL XL PO SCH (08:47)
[2021-08-12] MEDS: NYSTATIN SUSP PO SCH (08:47)
[2021-08-12] MEDS: SOLU-Medrol 40 MG VIAL IVP SCH ×2 (08:47→20:24)
[2021-08-12] MEDS: ZESTRIL TAB 20 MG PO SCH (08:48)
[2021-08-12] MEDS: PULMICORT NEB TX 0.5 MG NEB SCH ×2 (09:25→21:09)
[2021-08-12] MEDS: BROVANA IN SCH ×2 (09:25→21:09)
--- NOTE | 2021-08-12 11:14 | PCM.PROG ---
Progress Note Progress Note for Day of Date of Exam: 08/11/21 Subjective Subjective: Patient is less confused this am. Her Na is now 154. O2 sats are running in the upper 90's. Cr is down from yesterday. Patients Sodium level is still high and has not come down substantially. Will d/c 1/4 NS today and change to D5W at 75 ml/hr. Cover Glu levels with Levemir and regular insulin sliding scale. Past Medical Family Social History Past Med/Fam/Surg Hx: No changes since H&P Allergies: Allergies No Known Drug Allergies Allergy (Unverified 07/31/21 19:05) Review of Systems ROS: No change since H&P and Changes notes (describe) Vital Signs and I&O's Vital Signs: Temperature 98.3 F Pulse Rate [Left Radial] 79 Pulse Rate 93 Respiratory Rate 22 Blood Pressure [Left Arm] 159/69 Blood Pressure [Right Arm] 156/68 Blood Pressure 129/62 O2 Sat by Pulse Oximetry 95 Intake and Output: Intake & Output 08/09/21 08/10/21 08/11/21 08/12/21 11:59 11:59 11:59 11:59 Intake Total 2638 / 2638 2606 / 2606 1872 / 1872 2201 / 2201 Output Total 300 / 300 300 / 300 600 / 600 1750 / 1750 Balance 2338 / 2338 2306 / 2306 1272 / 1272 451 / 451 Physical Exam Oriented: Unable to test Eyes: Normal Ear: Normal Nose: Normal Throat: Dry and Other (oral thrush noted ) Respiratory: Generalized and Diminished Cardiovascular: Normal Auscultation: Bowel Sounds: Normal Tenderness: Normal Skin: Decreased Turgur Speech Pattern: Unclear and Inappropriate Laboratory and Diagnostics Result Diagrams: 08/12/21 03:18 08/12/21 03:18 Labs: 08/03/21 20:04 Blood Blood Culture - Final 08/03/21 19:52 Blood Blood Culture - Final Laboratory WBC 10.1 X10^3/uL (3.6-10.0) H 08/12/21 03:18 RBC 2.93 X10^6/uL (3.5-5.4) L 08/12/21 03:18 Hgb 9.7 g/dL (12.0-16.0) L 08/12/21 03:18 Hct 28.0 % (36.0-47.0) L 08/12/21 03:18 MCV 95.6 fL (80.0-100.0) 08/12/21 03:18 MCH 33.2 pg (27.0-34.0) 08/12/21 03:18 MCHC 34.8 g/dL (33.0-35.0) 08/12/21 03:18 RDW 15.3 % (11.6-16.5) 08/12/21 03:18 Plt Count 131 X10^3/uL (150.0-450.0) L 08/12/21 03:18 Plt Count Comment Decreased (ADEQUATE) A 08/12/21 03:18 MPV 8.4 fL (7.4-11.0) 08/12/21 03:18 Neut % (Auto) 95.2 % (42.0-75.0) H 08/12/21 03:18 Lymph % (Auto) 1.9 % (21.0-51.0) L 08/12/21 03:18 [place] % (Auto) 2.8 % (0.0-13.0) 08/12/21 03:18 Eos % (Auto) 0.0 % (0.9-2.9) L 08/12/21 03:18 Baso % (Auto) 0.1 % (0.2-1.0) L 08/12/21 03:18 Neut # (Auto) 9.6 x10^3/uL (2.2-4.8) H 08/12/21 03:18 Lymph # (Auto) 0.2 X10^3/uL (1.3-2.9) L 08/12/21 03:18 [place] # (Auto) 0.3 x10^3/uL (0.3-0.8) 08/12/21 03:18 Eos # (Auto) 0.0 x10^3/uL (0.0-0.2) 08/12/21 03:18 Baso # (Auto) 0.0 X10^3/uL (0.0-0.1) 08/12/21 03:18 Absolute Nucleated RBC 0.1 /100WBC 08/12/21 03:18 Total Counted 100 08/12/21 03:18 Neutrophils % (Manual) 99 % (39-76) H 08/12/21 03:18 Band Neutrophils % 1 % (0-10) 08/11/21 04:35 Lymphocytes % (Manual) 1 % (13-43) L 08/12/21 03:18 Monocytes % (Manual) 2 % (4-9) L 08/11/21 04:35 Smudge Cells 2+ A 08/01/21 05:51 Plt Morphology Comment Normal (NORMAL) 08/12/21 03:18 RBC Morphology Normal (NORMAL) 08/12/21 03:18 [place] Cells Slight A 08/11/21 04:35 Sample Site Lr 08/11/21 09:15 ABG pH 7.530 (7.35-7.45) H 08/11/21 09:15 ABG pCO2 24.0 mmHg (35.0-45.0) L 08/11/21 09:15 ABG pO2 61.0 mmHg (80.0-100.0) L 08/11/21 09:15 ABG HCO3 20.1 mmol/L (22-26) L 08/11/21 09:15 ABG O2 Saturation 94.0 % (90-100) 08/11/21 09:15 ABG Base Excess -1.2 mmol/L (-2.0-2.0) 08/11/21 09:15 Jesse Test Positive 08/11/21 09:15 A-a Gradient 622.0 mmHg 08/11/21 09:15 FiO2 100.0 08/11/21 09:15 Blood Gas Comments Tolerated well. sd 08/11/21 09:15 Sodium 152 mmol/L (136-145) H* 08/12/21 03:18 Corrected Sodium 157 mmol/L (136-145) H 08/12/21 03:18 Potassium 4.3 mmol/L (3.5-5.1) 08/12/21 03:18 Chloride 118 mmol/L (98-107) H* 08/12/21 03:18 Carbon Dioxide 24.0 mmol/L (21-32) 08/12/21 03:18 BUN 62 mg/dL (7-18) H 08/12/21 03:18 Creatinine 1.22 mg/dL (0.55-1.02) H 08/12/21 03:18 Est GFR (MDRD) Af Amer 53 (>60) L 08/12/21 03:18 Est GFR (MDRD) Non-Af 44 (>60) L 08/12/21 03:18 Glucose 317 mg/dL (65-99) H 08/12/21 03:18 POC Glucose (mg/dL) 299 mg/dL (65-99) H 08/12/21 05:43 Calcium 8.8 mg/dL (8.5-10.1) 08/12/21 03:18 Corrected Calcium 10.5 mg/dL (8.5-10.1) H 08/12/21 03:18 Magnesium 2.3 mg/dL (1.7-2.9) 08/09/21 04:24 Total Bilirubin 0.60 mg/dL (0.2-1.0) 08/12/21 03:18 AST 42 Units/L (15-37) H 08/12/21 03:18 ALT 22 Units/L (12-78) 08/12/21 03:18 Alkaline Phosphatase 89 Units/L (46-116) 08/12/21 03:18 Creatine Kinase 363 Units/L (26-192) H 07/31/21 19:18 C-Reactive Protein 85.80 mg/L (0-3.0) H 08/07/21 05:10 B-Natriuretic Peptide 234 pg/mL (0-79) H 08/11/21 04:35 Total Protein 4.6 g/dL (6.4-8.2) L 08/12/21 03:18 Albumin 1.9 g/dL (3.4-5.0) L 08/12/21 03:18 Globulin 2.7 g/dL (2.5-4.5) 08/12/21 03:18 Albumin/Globulin Ratio 0.7 Ratio (1.1-2.1) L 08/12/21 03:18 Specimen Type Catherized urine 08/11/21 10:39 Urine Color Yellow (YELLOW) 08/11/21 10:39 Urine Appearance Clear (CLEAR) 08/11/21 10:39 Urine pH 5.0 (5.0 - 8.0) 08/11/21 10:39 Ur Specific [place] 1.020 (1.000-1.030) 08/11/21 10:39 Urine Protein 2+ (NEGATIVE) 08/11/21 10:39 Urine Glucose (UA) 2+ (NEGATIVE) 08/11/21 10:39 Urine Ketones 1+ (NEGATIVE) 08/11/21 10:39 Urine Occult Blood Negative (NEGATIVE) 08/11/21 10:39 Urine Nitrite Negative (NEGATIVE) 08/11/21 10:39 Urine Bilirubin Negative (NEGATIVE) 08/11/21 10:39 Urine Urobilinogen Normal (NORMAL) 08/11/21 10:39 Ur Leukocyte Esterase Negative (NEGATIVE) 08/11/21 10:39 Urine RBC 0-2 /HPF (0-3) 08/11/21 10:39 Urine WBC 0-2 /HPF (0-5) 08/11/21 10:39 Ur Squamous Epith Cells Numerous /HPF (NEGATIVE) 08/11/21 10:39 Amorphous Sediment 1+ /HPF (NEGATIVE) 08/02/21 05:00 Urine Bacteria Trace /HPF (NEGATIVE) 08/11/21 10:39 Hyaline Casts Few /LPF (NEGATIVE) 08/11/21 10:39 Urine Mucus Moderate /HPF (NEGATIVE) 08/11/21 10:39 Ur Culture Indicated? No/not indicated 08/11/21 10:39 SARS CoV-2 RNA Rapid MARA Positive (NEGATIVE) A 07/31/21 21:10 Radiology Reviewed: Yes Plan (1) Hyperglycemia: Status: Acute Plan: Adding Levemir, Sliding scale Regular insulin for better glycemic control. (2) AMS (altered mental status): Status: Acute Qualifiers: Altered mental status type: disorientation Qualified Code(s): R41.0 - Disorientation, unspecified Narrative Support Text: Patient is still moaning and not talking. Plan: Monitor daily Na levels. (3) Hypernatremia: Status: Acute Narrative Support Text: Sodium is up 1 point this am to 154. Plan: Changing IVF to D5W (4) HTN (hypertension), malignant: Status: Acute Narrative Support Text: BP is improved overall at this time. Plan: Will adjust BP meds. (5) Dehydration: Status: Resolved Plan: Increasing IVF to 50 ml/hr (6) Hypokalemia: Status: Resolved Plan: Potassium replacement protocol. (7) Pneumonia due to COVID-19 virus: Status: Acute Plan: Antibiotics have been stopped. Patient is afebrile now. Monitor for changes in respiratory status. (8) Dementia: Status: Acute Qualifiers: Dementia type: unspecified type Dementia behavioral disturbance: without behavioral disturbance Qualified Code(s): F03.90 - Unspecified dementia without behavioral disturbance (9) Acute hyponatremia: Status: Resolved (10) Weakness: Status: Acute (11) COVID-19: Status: Acute (12) Pansinusitis: Status: Acute Qualifiers: Chronicity: acute Recurrence: not specified as recurrent Qualified Code(s): J01.40 - Acute pansinusitis, unspecified (13) Hypoglycemia: Status: Acute (14) Dysphagia: Status: Acute Qualifiers: Dysphagia type: unspecified Qualified Code(s): R13.10 - Dysphagia, unspecified (15) Fall: Status: Acute Qualifiers: Encounter type: sequela Qualified Code(s): W19.XXXS - Unspecified fall, sequela
--- NOTE | 2021-08-12 13:49 | PCM.PROG ---
Progress Note Progress Note for Day of Date of Exam: 08/12/21 Subjective Subjective: Patient is less confused this am. Her Na is now 152. O2 sats are running in the upper 90's. Patients Sodium level is still high but has come down 2 points to 152. Patient is on D5W now for hypernatremia. Sodium levels are dropping now. Cover glucose levels with Levemir and regular insulin sliding scale. The patient's family made patient her a DNR yesterday. They want her to be placed on Hospice at the [facility] in [place], [place]. She is currently on a waiting list to be admitted there. Past Medical Family Social History Past Med/Fam/Surg Hx: No changes since H&P Allergies: Allergies No Known Drug Allergies Allergy (Unverified 07/31/21 19:05) Review of Systems ROS: No change since H&P and Changes notes (describe) Vital Signs and I&O's Vital Signs: Temperature 98.3 F Pulse Rate [Left Radial] 79 Pulse Rate 91 Respiratory Rate 24 Blood Pressure [Left Arm] 159/69 Blood Pressure [Right Arm] 156/68 Blood Pressure 133/60 O2 Sat by Pulse Oximetry 93 Intake and Output: Intake & Output 08/09/21 08/10/21 08/11/21 08/12/21 11:59 11:59 11:59 11:59 Intake Total 2638 / 2638 2606 / 2606 1872 / 1872 2201 / 2201 Output Total 300 / 300 300 / 300 600 / 600 1750 / 1750 Balance 2338 / 2338 2306 / 2306 1272 / 1272 451 / 451 Physical Exam Oriented: Unable to test Eyes: Normal Ear: Normal Nose: Normal Throat: Dry and Other (oral thrush noted ) Respiratory: Generalized and Diminished Cardiovascular: Normal Auscultation: Bowel Sounds: Normal Tenderness: Normal Skin: Decreased Turgur Psychiatric: Normal Mood Description: Calm Affect: Normal Speech Pattern: Unclear and Inappropriate Laboratory and Diagnostics Result Diagrams: 08/12/21 03:18 08/12/21 03:18 Labs: 08/03/21 20:04 Blood Blood Culture - Final 08/03/21 19:52 Blood Blood Culture - Final Laboratory WBC 10.1 X10^3/uL (3.6-10.0) H 08/12/21 03:18 RBC 2.93 X10^6/uL (3.5-5.4) L 08/12/21 03:18 Hgb 9.7 g/dL (12.0-16.0) L 08/12/21 03:18 Hct 28.0 % (36.0-47.0) L 08/12/21 03:18 MCV 95.6 fL (80.0-100.0) 08/12/21 03:18 MCH 33.2 pg (27.0-34.0) 08/12/21 03:18 MCHC 34.8 g/dL (33.0-35.0) 08/12/21 03:18 RDW 15.3 % (11.6-16.5) 08/12/21 03:18 Plt Count 131 X10^3/uL (150.0-450.0) L 08/12/21 03:18 Plt Count Comment Decreased (ADEQUATE) A 08/12/21 03:18 MPV 8.4 fL (7.4-11.0) 08/12/21 03:18 Neut % (Auto) 95.2 % (42.0-75.0) H 08/12/21 03:18 Lymph % (Auto) 1.9 % (21.0-51.0) L 08/12/21 03:18 [place] % (Auto) 2.8 % (0.0-13.0) 08/12/21 03:18 Eos % (Auto) 0.0 % (0.9-2.9) L 08/12/21 03:18 Baso % (Auto) 0.1 % (0.2-1.0) L 08/12/21 03:18 Neut # (Auto) 9.6 x10^3/uL (2.2-4.8) H 08/12/21 03:18 Lymph # (Auto) 0.2 X10^3/uL (1.3-2.9) L 08/12/21 03:18 [place] # (Auto) 0.3 x10^3/uL (0.3-0.8) 08/12/21 03:18 Eos # (Auto) 0.0 x10^3/uL (0.0-0.2) 08/12/21 03:18 Baso # (Auto) 0.0 X10^3/uL (0.0-0.1) 08/12/21 03:18 Absolute Nucleated RBC 0.1 /100WBC 08/12/21 03:18 Total Counted 100 08/12/21 03:18 Neutrophils % (Manual) 99 % (39-76) H 08/12/21 03:18 Band Neutrophils % 1 % (0-10) 08/11/21 04:35 Lymphocytes % (Manual) 1 % (13-43) L 08/12/21 03:18 Monocytes % (Manual) 2 % (4-9) L 08/11/21 04:35 Smudge Cells 2+ A 08/01/21 05:51 Plt Morphology Comment Normal (NORMAL) 08/12/21 03:18 RBC Morphology Normal (NORMAL) 08/12/21 03:18 [place] Cells Slight A 08/11/21 04:35 Sample Site Lr 08/11/21 09:15 ABG pH 7.530 (7.35-7.45) H 08/11/21 09:15 ABG pCO2 24.0 mmHg (35.0-45.0) L 08/11/21 09:15 ABG pO2 61.0 mmHg (80.0-100.0) L 08/11/21 09:15 ABG HCO3 20.1 mmol/L (22-26) L 08/11/21 09:15 ABG O2 Saturation 94.0 % (90-100) 08/11/21 09:15 ABG Base Excess -1.2 mmol/L (-2.0-2.0) 08/11/21 09:15 Jesse Test Positive 08/11/21 09:15 A-a Gradient 622.0 mmHg 08/11/21 09:15 FiO2 100.0 08/11/21 09:15 Blood Gas Comments Tolerated well. sd 08/11/21 09:15 Sodium 152 mmol/L (136-145) H* 08/12/21 03:18 Corrected Sodium 157 mmol/L (136-145) H 08/12/21 03:18 Potassium 4.3 mmol/L (3.5-5.1) 08/12/21 03:18 Chloride 118 mmol/L (98-107) H* 08/12/21 03:18 Carbon Dioxide 24.0 mmol/L (21-32) 08/12/21 03:18 BUN 62 mg/dL (7-18) H 08/12/21 03:18 Creatinine 1.22 mg/dL (0.55-1.02) H 08/12/21 03:18 Est GFR (MDRD) Af Amer 53 (>60) L 08/12/21 03:18 Est GFR (MDRD) Non-Af 44 (>60) L 08/12/21 03:18 Glucose 317 mg/dL (65-99) H 08/12/21 03:18 POC Glucose (mg/dL) 299 mg/dL (65-99) H 08/12/21 05:43 Calcium 8.8 mg/dL (8.5-10.1) 08/12/21 03:18 Corrected Calcium 10.5 mg/dL (8.5-10.1) H 08/12/21 03:18 Magnesium 2.3 mg/dL (1.7-2.9) 08/09/21 04:24 Total Bilirubin 0.60 mg/dL (0.2-1.0) 08/12/21 03:18 AST 42 Units/L (15-37) H 08/12/21 03:18 ALT 22 Units/L (12-78) 08/12/21 03:18 Alkaline Phosphatase 89 Units/L (46-116) 08/12/21 03:18 Creatine Kinase 363 Units/L (26-192) H 07/31/21 19:18 C-Reactive Protein 85.80 mg/L (0-3.0) H 08/07/21 05:10 B-Natriuretic Peptide 234 pg/mL (0-79) H 08/11/21 04:35 Total Protein 4.6 g/dL (6.4-8.2) L 08/12/21 03:18 Albumin 1.9 g/dL (3.4-5.0) L 08/12/21 03:18 Globulin 2.7 g/dL (2.5-4.5) 08/12/21 03:18 Albumin/Globulin Ratio 0.7 Ratio (1.1-2.1) L 08/12/21 03:18 Specimen Type Catherized urine 08/11/21 10:39 Urine Color Yellow (YELLOW) 08/11/21 10:39 Urine Appearance Clear (CLEAR) 08/11/21 10:39 Urine pH 5.0 (5.0 - 8.0) 08/11/21 10:39 Ur Specific [place] 1.020 (1.000-1.030) 08/11/21 10:39 Urine Protein 2+ (NEGATIVE) 08/11/21 10:39 Urine Glucose (UA) 2+ (NEGATIVE) 08/11/21 10:39 Urine Ketones 1+ (NEGATIVE) 08/11/21 10:39 Urine Occult Blood Negative (NEGATIVE) 08/11/21 10:39 Urine Nitrite Negative (NEGATIVE) 08/11/21 10:39 Urine Bilirubin Negative (NEGATIVE) 08/11/21 10:39 Urine Urobilinogen Normal (NORMAL) 08/11/21 10:39 Ur Leukocyte Esterase Negative (NEGATIVE) 08/11/21 10:39 Urine RBC 0-2 /HPF (0-3) 08/11/21 10:39 Urine WBC 0-2 /HPF (0-5) 08/11/21 10:39 Ur Squamous Epith Cells Numerous /HPF (NEGATIVE) 08/11/21 10:39 Amorphous Sediment 1+ /HPF (NEGATIVE) 08/02/21 05:00 Urine Bacteria Trace /HPF (NEGATIVE) 08/11/21 10:39 Hyaline Casts Few /LPF (NEGATIVE) 08/11/21 10:39 Urine Mucus Moderate /HPF (NEGATIVE) 08/11/21 10:39 Ur Culture Indicated? No/not indicated 08/11/21 10:39 SARS CoV-2 RNA Rapid MARA Positive (NEGATIVE) A 07/31/21 21:10 Plan (1) Hyperglycemia: Status: Acute Plan: Will increase Levemir this am to 25 units bid and continue Sliding scale Regular insulin for better glycemic control. (2) AMS (altered mental status): Status: Acute Qualifiers: Altered mental status type: disorientation Qualified Code(s): R41.0 - Disorientation, unspecified Plan: Monitor daily Na levels. (3) Hypernatremia: Status: Acute Narrative Support Text: Improved some this am. Plan: Recheck CMP in am. (4) HTN (hypertension), malignant: Status: Acute Plan: Will adjust BP meds. (5) Dehydration: Status: Resolved Plan: IVF at 50 ml/hr (6) Pneumonia due to COVID-19 virus: Status: Acute Plan: Antibiotics have been stopped. Patient is afebrile now. Monitor for changes in respiratory status. (7) Dementia: Status: Acute Qualifiers: Dementia behavioral disturbance: without behavioral disturbance Dementia type: unspecified type Qualified Code(s): F03.90 - Unspecified dementia without behavioral disturbance (8) Weakness: Status: Acute (9) COVID-19: Status: Acute (10) Pansinusitis: Status: Acute Qualifiers: Chronicity: acute Recurrence: not specified as recurrent Qualified Code(s): J01.40 - Acute pansinusitis, unspecified (11) Hypoglycemia: Status: Acute (12) Dysphagia: Status: Acute Qualifiers: Dysphagia type: unspecified Qualified Code(s): R13.10 - Dysphagia, unspecified (13) Fall: Status: Acute Qualifiers: Encounter type: sequela Qualified Code(s): W19.XXXS - Unspecified fall, sequela (14) Hypokalemia: Status: Resolved Plan: Potassium replacement protocol. (15) Acute hyponatremia: Status: Resolved
[2021-08-12] MEDS: SNACK - Diabetic Appropriate PO SCH (19:58)
[2021-08-13] MEDS: MORPHINE SULFATE INJ 2 MG INJ IVP PRN ×2 (00:11→15:14)
[2021-08-13] MEDS: D5W 1,000 ML IV 1,000 ML IV SCH ×2 (02:56→14:00)
[2021-08-13] MEDS: ASCORBIC ACID INJ MULTI-DOSE VIAL 1,500 MG in NS 50 ML IV 50 ML IV SCH ×5 (02:56→21:19)
[2021-08-13 05:11] LABS: BASOPHILS % (AUTO) 0 % (0.2-1.0); HEMATOCRIT 25.3 % (36.0-47.0); HEMOGLOBIN 8.8 g/dL (12.0-16.0); LYMPHOCYTES # (AUTO) 0.3 X10^3/uL (1.3-2.9); LYMPHOCYTES % (AUTO) 2.8 % (21.0-51.0); MEAN CORPUSCULAR HGB CONC 34.8 g/dL (33.0-35.0); MEAN PLATELET VOLUME 8.8 fL (7.4-11.0); MONOCYTES # (AUTO) 0.2 x10^3/uL (0.3-0.8); MONOCYTES % (AUTO) 2.4 % (0.0-13.0); NEUTROPHILS # (AUTO) 8.4 x10^3/uL (2.2-4.8); NEUTROPHILS % (AUTO) 94.8 % (42.0-75.0); PLATELET COUNT 93 X10^3/uL (150.0-450.0); RED BLOOD COUNT 2.67 X10^6/uL (3.5-5.4); RED CELL DISTRIBUTION WIDTH 14.8 % (11.6-16.5); WHITE BLOOD COUNT 8.9 X10^3/uL (3.6-10.0)
[2021-08-13 05:20] LABS: ALBUMIN 1.6 g/dL (3.4-5.0); CALCIUM 8.2 mg/dL (8.5-10.1); COR CA(FOR HYPOALB) 10.1 mg/dL (8.5-10.1); CREATININE 1.33 mg/dL (0.55-1.02); TOTAL PROTEIN 4.1 g/dL (6.4-8.2)
[2021-08-13 05:34] LABS: PLATELET MORPHOLOGY COMMENT NORMAL (NORMAL)
[2021-08-13] MEDS: DUONEB 0.5 MG/3 MG (3 mL) NEB SCH ×3 (05:55→21:21)
[2021-08-13] MEDS: LOVENOX INJ 40 MG SYR SC SCH (09:15)
[2021-08-13] MEDS: LEVEMIR SC SCH ×2 (09:15→21:19)
[2021-08-13] MEDS: SOLU-Medrol 40 MG VIAL IVP SCH ×2 (09:16→21:20)
[2021-08-13] MEDS: PEPCID 20 MG IV PREMIX* 20 MG/50 ML BAG IV SCH (09:16)
[2021-08-13] MEDS: BROVANA IN SCH ×2 (09:30→21:21)
[2021-08-13] MEDS: PULMICORT NEB TX 0.5 MG NEB SCH ×2 (09:40→21:21)
[2021-08-13] MEDS: NovoLIN R (or HumuLIN R) SUBCUT PRN ×2 (11:57→16:39)
[2021-08-13] MEDS: SNACK - Diabetic Appropriate PO SCH (19:59)
[2021-08-14] MEDS: D5W 1,000 ML IV 1,000 ML IV SCH (02:27)
[2021-08-14] MEDS: ASCORBIC ACID INJ MULTI-DOSE VIAL 1,500 MG in NS 50 ML IV 50 ML IV SCH ×4 (04:00→20:12)
[2021-08-14] MEDS: DUONEB 0.5 MG/3 MG (3 mL) NEB SCH ×3 (05:36→20:40)
[2021-08-14 05:52] LABS: BASOPHILS % (AUTO) 0.1 % (0.2-1.0); HEMATOCRIT 25.9 % (36.0-47.0); HEMOGLOBIN 9.1 g/dL (12.0-16.0); LYMPHOCYTES # (AUTO) 0.2 X10^3/uL (1.3-2.9); LYMPHOCYTES % (AUTO) 2.7 % (21.0-51.0); MEAN CORPUSCULAR HEMOGLOBIN 32.7 pg (27.0-34.0); MEAN CORPUSCULAR VOLUME 93.6 fL (80.0-100.0); MEAN PLATELET VOLUME 9.1 fL (7.4-11.0); MONOCYTES # (AUTO) 0.1 x10^3/uL (0.3-0.8); MONOCYTES % (AUTO) 1.8 % (0.0-13.0); NEUTROPHILS # (AUTO) 7.2 x10^3/uL (2.2-4.8); NEUTROPHILS % (AUTO) 95.4 % (42.0-75.0); PLATELET COUNT 78 X10^3/uL (150.0-450.0); RED BLOOD COUNT 2.77 X10^6/uL (3.5-5.4); RED CELL DISTRIBUTION WIDTH 14.8 % (11.6-16.5); WHITE BLOOD COUNT 7.6 X10^3/uL (3.6-10.0)
[2021-08-14 05:58] LABS: ALBUMIN 1.7 g/dL (3.4-5.0); CALCIUM 8.2 mg/dL (8.5-10.1); CARBON DIOXIDE 24.6 mmol/L (21-32); CREATININE 1.26 mg/dL (0.55-1.02); TOTAL PROTEIN 4.3 g/dL (6.4-8.2)
--- NOTE | 2021-08-14 06:15 | RAD ---
HISTORYCOVID PNEUMONIA HX: HTN, DMSTUDYCHEST, 1 [id number] trachea is midline. The cardiac silhouette is unremarkable. Patchy bilateral parenchymal consolidation increased from prior study. No pneumothorax. Small left pleural effusion. The bony thorax is unremarkable.IMPRESSIONBilateral pneumonic infiltrates increased from previous 08/11/2021lectronically signed by: Ramon Garcia (Aug 14, 2021 06:13:32)
[2021-08-14 06:23] LABS: PLATELET MORPHOLOGY COMMENT NORMAL (NORMAL)
--- NOTE | 2021-08-14 08:28 | PCM.PROG ---
Progress Note Progress Note for Day of Date of Exam: 08/13/21 Subjective Subjective: Patient is still confused this am. Her Na is now 152. O2 sats are running in the upper 90's. Patients Sodium level is still high but has come down 2 points to 152. Patient is on D5W now for hypernatremia. Sodium levels are dropping now. Cover glucose levels with Levemir and regular insulin sliding scale. The patient's family made patient her a DNR yesterday. They want her to be placed on Hospice at the [facility] in [place], [place]. She is currently on a waiting list to be admitted there. Past Medical Family Social History Past Med/Fam/Surg Hx: No changes since H&P Allergies: Allergies No Known Drug Allergies Allergy (Unverified 07/31/21 19:05) Review of Systems ROS: No change since H&P and Changes notes (describe) Vital Signs and I&O's Vital Signs: Temperature 97.0 F Pulse Rate [Left Radial] 79 Pulse Rate 70 Respiratory Rate 18 Blood Pressure [Left Arm] 159/69 Blood Pressure [Right Arm] 156/68 Blood Pressure 120/55 O2 Sat by Pulse Oximetry 95 Intake and Output: Intake & Output 08/11/21 08/12/21 08/13/21 08/14/21 11:59 11:59 11:59 11:59 Intake Total 1872 / 1872 2201 / 2201 1832 / 1832 2304 / 2304 Output Total 600 / 600 1750 / 1750 575 / 575 775 / 775 Balance 1272 / 1272 451 / 451 1257 / 1257 1529 / 1529 Physical Exam Oriented: Unable to test Eyes: Normal Ear: Normal Nose: Normal Throat: Dry and Other (oral thrush noted ) Respiratory: Generalized, Diminished and Rhonchi Cardiovascular: Normal Auscultation: Bowel Sounds: Normal Tenderness: Normal Skin: Decreased Turgur Psychiatric: Normal Mood Description: Calm Affect: Normal Speech Pattern: Unclear and Inappropriate Laboratory and Diagnostics Result Diagrams: 08/14/21 05:09 08/14/21 05:09 Labs: 08/03/21 20:04 Blood Blood Culture - Final 08/03/21 19:52 Blood Blood Culture - Final Laboratory WBC 7.6 X10^3/uL (3.6-10.0) 08/14/21 05:09 RBC 2.77 X10^6/uL (3.5-5.4) L 08/14/21 05:09 Hgb 9.1 g/dL (12.0-16.0) L 08/14/21 05:09 Hct 25.9 % (36.0-47.0) L 08/14/21 05:09 MCV 93.6 fL (80.0-100.0) 08/14/21 05:09 MCH 32.7 pg (27.0-34.0) 08/14/21 05:09 MCHC 35.0 g/dL (33.0-35.0) 08/14/21 05:09 RDW 14.8 % (11.6-16.5) 08/14/21 05:09 Plt Count 78 X10^3/uL (150.0-450.0) L 08/14/21 05:09 Plt Count Comment Decreased (ADEQUATE) A 08/14/21 05:09 MPV 9.1 fL (7.4-11.0) 08/14/21 05:09 Neut % (Auto) 95.4 % (42.0-75.0) H 08/14/21 05:09 Lymph % (Auto) 2.7 % (21.0-51.0) L 08/14/21 05:09 [place] % (Auto) 1.8 % (0.0-13.0) 08/14/21 05:09 Eos % (Auto) 0.0 % (0.9-2.9) L 08/14/21 05:09 Baso % (Auto) 0.1 % (0.2-1.0) L 08/14/21 05:09 Neut # (Auto) 7.2 x10^3/uL (2.2-4.8) H 08/14/21 05:09 Lymph # (Auto) 0.2 X10^3/uL (1.3-2.9) L 08/14/21 05:09 [place] # (Auto) 0.1 x10^3/uL (0.3-0.8) L 08/14/21 05:09 Eos # (Auto) 0.0 x10^3/uL (0.0-0.2) 08/14/21 05:09 Baso # (Auto) 0.0 X10^3/uL (0.0-0.1) 08/14/21 05:09 Absolute Nucleated RBC 0.0 /100WBC 08/14/21 05:09 Total Counted 100 08/14/21 05:09 Neutrophils % (Manual) 98 % (39-76) H 08/14/21 05:09 Band Neutrophils % 1 % (0-10) 08/11/21 04:35 Lymphocytes % (Manual) 2 % (13-43) L 08/14/21 05:09 Monocytes % (Manual) 0 % (4-9) L 08/14/21 05:09 Smudge Cells 2+ A 08/01/21 05:51 Plt Morphology Comment Normal (NORMAL) 08/14/21 05:09 RBC Morphology Normal (NORMAL) 08/14/21 05:09 [place] Cells Slight A 08/11/21 04:35 Sample Site Lr 08/11/21 09:15 ABG pH 7.530 (7.35-7.45) H 08/11/21 09:15 ABG pCO2 24.0 mmHg (35.0-45.0) L 08/11/21 09:15 ABG pO2 61.0 mmHg (80.0-100.0) L 08/11/21 09:15 ABG HCO3 20.1 mmol/L (22-26) L 08/11/21 09:15 ABG O2 Saturation 94.0 % (90-100) 08/11/21 09:15 ABG Base Excess -1.2 mmol/L (-2.0-2.0) 08/11/21 09:15 Jesse Test Positive 08/11/21 09:15 A-a Gradient 622.0 mmHg 08/11/21 09:15 FiO2 100.0 08/11/21 09:15 Blood Gas Comments Tolerated well. sd 08/11/21 09:15 Sodium 151 mmol/L (136-145) H* 08/14/21 05:09 Corrected Sodium 153 mmol/L (136-145) H 08/14/21 05:09 Potassium 3.7 mmol/L (3.5-5.1) 08/14/21 05:09 Chloride 115 mmol/L (98-107) H* 08/14/21 05:09 Carbon Dioxide 24.6 mmol/L (21-32) 08/14/21 05:09 BUN 67 mg/dL (7-18) H 08/14/21 05:09 Creatinine 1.26 mg/dL (0.55-1.02) H 08/14/21 05:09 Est GFR (MDRD) Af Amer 51 (>60) L 08/14/21 05:09 Est GFR (MDRD) Non-Af 42 (>60) L 08/14/21 05:09 Glucose 165 mg/dL (65-99) H 08/14/21 05:09 POC Glucose (mg/dL) 131 mg/dL (65-99) H 08/14/21 04:59 Calcium 8.2 mg/dL (8.5-10.1) L 08/14/21 05:09 Corrected Calcium 10.0 mg/dL (8.5-10.1) 08/14/21 05:09 Magnesium 2.3 mg/dL (1.7-2.9) 08/09/21 04:24 Total Bilirubin 0.40 mg/dL (0.2-1.0) 08/14/21 05:09 AST 38 Units/L (15-37) H 08/14/21 05:09 ALT 26 Units/L (12-78) 08/14/21 05:09 Alkaline Phosphatase 109 Units/L (46-116) 08/14/21 05:09 Creatine Kinase 363 Units/L (26-192) H 07/31/21 19:18 C-Reactive Protein 85.80 mg/L (0-3.0) H 08/07/21 05:10 B-Natriuretic Peptide 234 pg/mL (0-79) H 08/11/21 04:35 Total Protein 4.3 g/dL (6.4-8.2) L 08/14/21 05:09 Albumin 1.7 g/dL (3.4-5.0) L 08/14/21 05:09 Globulin 2.6 g/dL (2.5-4.5) 08/14/21 05:09 Albumin/Globulin Ratio 0.7 Ratio (1.1-2.1) L 08/14/21 05:09 Specimen Type Catherized urine 08/11/21 10:39 Urine Color Yellow (YELLOW) 08/11/21 10:39 Urine Appearance Clear (CLEAR) 08/11/21 10:39 Urine pH 5.0 (5.0 - 8.0) 08/11/21 10:[address] [place] 1.020 (1.000-1.030) 08/11/21 10:39 Urine Protein 2+ (NEGATIVE) 08/11/21 10:39 Urine Glucose (UA) 2+ (NEGATIVE) 08/11/21 10:39 Urine Ketones 1+ (NEGATIVE) 08/11/21 10:39 Urine Occult Blood Negative (NEGATIVE) 08/11/21 10:39 Urine Nitrite Negative (NEGATIVE) 08/11/21 10:39 Urine Bilirubin Negative (NEGATIVE) 08/11/21 10:39 Urine Urobilinogen Normal (NORMAL) 08/11/21 10:39 Ur Leukocyte Esterase Negative (NEGATIVE) 08/11/21 10:39 Urine RBC 0-2 /HPF (0-3) 08/11/21 10:39 Urine WBC 0-2 /HPF (0-5) 08/11/21 10:39 Ur Squamous Epith Cells Numerous /HPF (NEGATIVE) 08/11/21 10:39 Amorphous Sediment 1+ /HPF (NEGATIVE) 08/02/21 05:00 Urine Bacteria Trace /HPF (NEGATIVE) 08/11/21 10:39 Hyaline Casts Few /LPF (NEGATIVE) 08/11/21 10:39 Urine Mucus Moderate /HPF (NEGATIVE) 08/11/21 10:39 Ur Culture Indicated? No/not indicated 08/11/21 10:39 SARS CoV-2 RNA Rapid MARA Positive (NEGATIVE) A 07/31/21 21:10 Radiology Reviewed: Yes Plan (1) Hyperglycemia: Status: Acute Plan: Continue Levemir at 25 units bid and continue Sliding scale Regular insulin for better glycemic control. (2) AMS (altered mental status): Status: Acute Qualifiers: Altered mental status type: disorientation Qualified Code(s): R41.0 - Disorientation, unspecified Narrative Support Text: N moaning per patient this morning. Plan: Monitor daily Na levels. (3) Hypernatremia: Status: Acute Narrative Support Text: Na is 152 same as yesterday. Plan: Recheck CMP in am. (4) HTN (hypertension), malignant: Status: Acute Narrative Support Text: Stable this am. Plan: Will adjust BP meds if needed. (5) Pneumonia due to COVID-19 virus: Status: Acute Plan: Antibiotics have been stopped. Patient is afebrile now. Monitor for changes in respiratory status. (6) Dementia: Status: Acute Qualifiers: Dementia type: unspecified type Dementia behavioral disturbance: without behavioral disturbance Qualified Code(s): F03.90 - Unspecified dementia without behavioral disturbance (7) Weakness: Status: Acute (8) COVID-19: Status: Acute (9) Pansinusitis: Status: Acute Qualifiers: Chronicity: acute Recurrence: not specified as recurrent Qualified Code(s): J01.40 - Acute pansinusitis, unspecified (10) Hypoglycemia: Status: Acute (11) Dysphagia: Status: Acute Qualifiers: Dysphagia type: unspecified Qualified Code(s): R13.10 - Dysphagia, unspecified (12) Fall: Status: Acute Qualifiers: Encounter type: sequela Qualified Code(s): W19.XXXS - Unspecified fall, sequela (13) Hypokalemia: Status: Resolved Plan: Potassium replacement protocol. (14) Acute hyponatremia: Status: Resolved (15) Dehydration: Status: Resolved Plan: IVF at 50 ml/hr
[2021-08-14] MEDS: PULMICORT NEB TX 0.5 MG NEB SCH ×2 (08:45→20:40)
[2021-08-14] MEDS: BROVANA IN SCH ×2 (08:45→20:40)
[2021-08-14] MEDS: LEVEMIR SC SCH ×2 (09:26→20:40)
[2021-08-14] MEDS: LOVENOX INJ 40 MG SYR SC SCH (09:27)
[2021-08-14] MEDS: SOLU-Medrol 40 MG VIAL IVP SCH ×2 (09:28→20:12)
[2021-08-14] MEDS: PEPCID 20 MG IV PREMIX* 20 MG/50 ML BAG IV SCH (09:28)
[2021-08-14] MEDS ORDERED: LR 1,000 ML IV 1,000 ML IV ONE (09:50)
[2021-08-14] MEDS ORDERED: NS 1/2 1,000 ML IV 1,000 ML IV ONE ×2 (10:03→16:45)
[2021-08-14] MEDS: NS 1/2 1,000 ML IV 1,000 ML IV SCH ×2 (10:12→17:03)
[2021-08-14] MEDS ORDERED: D50W ABBOJECT SYR ONE (16:48)
[2021-08-14 17:52] LABS: BLOOD UREA NITROGEN 63 mg/dL (7-18); CALCIUM 8.6 mg/dL (8.5-10.1); CARBON DIOXIDE 24.7 mmol/L (21-32); CHLORIDE 113 mmol/L (98-107); CREATININE 1.17 mg/dL (0.55-1.02); SODIUM 149 mmol/L (136-145); eGFR NON BLACK RACES 46 (>60)
[2021-08-14] MEDS: SNACK - Diabetic Appropriate PO SCH (20:12)
[2021-08-14] MEDS ORDERED: BUTT CREAM (COMPOUND) ONE (21:36)
[2021-08-14] MEDS ORDERED: BUTT CREAM (COMPOUND) TOP PRN (21:39)
[2021-08-15] MEDS: NS 1/2 1,000 ML IV 1,000 ML IV SCH ×5 (02:38→20:36)
[2021-08-15] MEDS: ASCORBIC ACID INJ MULTI-DOSE VIAL 1,500 MG in NS 50 ML IV 50 ML IV SCH ×4 (02:38→20:38)
[2021-08-15] MEDS ORDERED: NS 1/2 1,000 ML IV 1,000 ML IV ONE ×2 (04:49→08:15)
[2021-08-15 05:38] LABS: BASOPHILS % (AUTO) 0.1 % (0.2-1.0); HEMATOCRIT 27.6 % (36.0-47.0); HEMOGLOBIN 9.4 g/dL (12.0-16.0); LYMPHOCYTES # (AUTO) 0.2 X10^3/uL (1.3-2.9); LYMPHOCYTES % (AUTO) 1.5 % (21.0-51.0); MEAN CORPUSCULAR HEMOGLOBIN 31.9 pg (27.0-34.0); MEAN CORPUSCULAR HGB CONC 34.1 g/dL (33.0-35.0); MEAN CORPUSCULAR VOLUME 93.5 fL (80.0-100.0); MEAN PLATELET VOLUME 9.1 fL (7.4-11.0); MONOCYTES # (AUTO) 0.2 x10^3/uL (0.3-0.8); MONOCYTES % (AUTO) 1.3 % (0.0-13.0); NEUTROPHILS % (AUTO) 97.1 % (42.0-75.0); PLATELET COUNT 78 X10^3/uL (150.0-450.0); RED BLOOD COUNT 2.95 X10^6/uL (3.5-5.4); RED CELL DISTRIBUTION WIDTH 14.8 % (11.6-16.5); WHITE BLOOD COUNT 12.4 X10^3/uL (3.6-10.0)
[2021-08-15] MEDS: DUONEB 0.5 MG/3 MG (3 mL) NEB SCH ×4 (05:45→20:10)
[2021-08-15 05:52] LABS: ALANINE AMINOTRANSFERASE 28 Units/L (12-78); ALBUMIN 1.7 g/dL (3.4-5.0); ALKALINE PHOSPHATASE 109 Units/L (46-116); ASPARTATE AMINO TRANSFERASE 51 Units/L (15-37); BLOOD UREA NITROGEN 66 mg/dL (7-18); CALCIUM 8.2 mg/dL (8.5-10.1); CARBON DIOXIDE 26.4 mmol/L (21-32); CHLORIDE 114 mmol/L (98-107); CREATININE 1.22 mg/dL (0.55-1.02); SODIUM 148 mmol/L (136-145); TOTAL PROTEIN 4.5 g/dL (6.4-8.2); eGFR NON BLACK RACES 44 (>60)
[2021-08-15] MEDS ORDERED: D50W ABBOJECT SYR IV ONE ×2 (06:15→11:28)
[2021-08-15 06:16] LABS: PLATELET MORPHOLOGY COMMENT NORMAL (NORMAL)
[2021-08-15] MEDS: LEVEMIR SC SCH ×2 (08:26→20:39)
[2021-08-15] MEDS: LOVENOX INJ 40 MG SYR SC SCH (08:26)
[2021-08-15] MEDS: PEPCID 20 MG IV PREMIX* 20 MG/50 ML BAG IV SCH (08:27)
[2021-08-15] MEDS: SOLU-Medrol 40 MG VIAL IVP SCH ×2 (08:27→20:39)
[2021-08-15] MEDS: PULMICORT NEB TX 0.5 MG NEB SCH ×2 (08:55→20:10)
[2021-08-15] MEDS: BROVANA IN SCH ×2 (08:55→20:10)
[2021-08-15] MEDS: K-RIDER 10 MEQ/NS 100 ML 10 MEQ/100 ML BAG IV PRN (09:39)
[2021-08-15] MEDS: ALBUMIN HUMAN 25%- 100 ML 100 ML IV SCH ×2 (10:55→20:37)
[2021-08-15] MEDS ORDERED: D50W ABBOJECT SYR ONE (11:33)
[2021-08-15] MEDS: D5W 1,000 ML IV 1,000 ML IV SCH (12:39)
[2021-08-15] MEDS: CATAPRES-TTS-3 TD SCH (17:25)
[2021-08-15] MEDS: SNACK - Diabetic Appropriate PO SCH (20:36)
[2021-08-16] MEDS ORDERED: NS 1/2 1,000 ML IV 1,000 ML IV ONE (02:13)
[2021-08-16] MEDS: ASCORBIC ACID INJ MULTI-DOSE VIAL 1,500 MG in NS 50 ML IV 50 ML IV SCH ×2 (02:17→08:21)
[2021-08-16] MEDS: NS 1/2 1,000 ML IV 1,000 ML IV SCH ×2 (03:13→12:34)
[2021-08-16 05:23] LABS: BASOPHILS % (AUTO) 0.4 % (0.2-1.0); HEMATOCRIT 24.2 % (36.0-47.0); HEMOGLOBIN 8.2 g/dL (12.0-16.0); LYMPHOCYTES # (AUTO) 0.1 X10^3/uL (1.3-2.9); MEAN CORPUSCULAR HEMOGLOBIN 31.7 pg (27.0-34.0); MEAN CORPUSCULAR HGB CONC 33.8 g/dL (33.0-35.0); MEAN CORPUSCULAR VOLUME 93.7 fL (80.0-100.0); MEAN PLATELET VOLUME 9.6 fL (7.4-11.0); MONOCYTES # (AUTO) 0.1 x10^3/uL (0.3-0.8); MONOCYTES % (AUTO) 1.4 % (0.0-13.0); NEUTROPHILS # (AUTO) 8.7 x10^3/uL (2.2-4.8); NEUTROPHILS % (AUTO) 97.2 % (42.0-75.0); PLATELET COUNT 52 X10^3/uL (150.0-450.0); RED BLOOD COUNT 2.58 X10^6/uL (3.5-5.4); WHITE BLOOD COUNT 8.9 X10^3/uL (3.6-10.0)
[2021-08-16 05:35] LABS: ALBUMIN 2.7 g/dL (3.4-5.0); CALCIUM 8.2 mg/dL (8.5-10.1); CARBON DIOXIDE 22.9 mmol/L (21-32); COR CA(FOR HYPOALB) 9.2 mg/dL (8.5-10.1); CREATININE 1.11 mg/dL (0.55-1.02); TOTAL PROTEIN 4.7 g/dL (6.4-8.2)
[2021-08-16] MEDS: DUONEB 0.5 MG/3 MG (3 mL) NEB SCH (05:40)
[2021-08-16 06:05] LABS: PLATELET MORPHOLOGY COMMENT NORMAL (NORMAL)
[2021-08-16] MEDS: ALBUMIN HUMAN 25%- 100 ML 100 ML IV SCH (08:21)
[2021-08-16] MEDS: PEPCID 20 MG IV PREMIX* 20 MG/50 ML BAG IV SCH (08:22)
[2021-08-16] MEDS: K-RIDER 10 MEQ/NS 100 ML 10 MEQ/100 ML BAG IV PRN (08:22)
[2021-08-16] MEDS: SOLU-Medrol 40 MG VIAL IVP SCH (08:22)
[2021-08-16] MEDS ORDERED: NS 50 ML IV 50 ML IV ONE (08:24)
[2021-08-16] MEDS: PULMICORT NEB TX 0.5 MG NEB SCH (08:30)
[2021-08-16] MEDS: BROVANA IN SCH (08:30)
[2021-08-16] MEDS ORDERED: LEVEMIR SC SCH (09:00)
[2021-08-16] MEDS: NovoLIN R (or HumuLIN R) SUBCUT PRN (12:04)
[2021-08-16] MEDS: MORPHINE SULFATE INJ 2 MG INJ IVP PRN (12:05)
[2021-08-16] MEDS: D5W 1,000 ML IV 1,000 ML IV SCH (12:34)
[2021-08-16] MEDS ORDERED: ATIVAN INJ 2 MG VIAL IVP PRN (12:40)
[2021-08-16] MEDS ORDERED: MORPHINE SULFATE INJ 2 MG INJ IVP PRN (12:41)
[2021-08-16] MEDS ORDERED: TRANSDERM-SCOP TD SCH (13:00)
[2021-08-16 13:43] VITALS: BP 181/71
--- NOTE | 2021-08-16 14:46 | RAD ---
HISTORYHYPOXIA, COVID PNEUMONIASTUDYCHEST, 1 [id number] l pneumonia may be improved. No pneumothorax or significant effusion.Heart size is normal. Vascular calcifications are present compatible with atherosclerosis.Bones are unremarkable.EKG leads are noted.IMPRESSION1. Improved pneumoniaElectronically signed by: Reynaldo Catalan (Aug 16, 2021 14:45:36)
--- NOTE | 2021-08-19 09:49 | W.DIS.FURT ---
Summary of Discharge Admission Diagnosis Patient Problems (Updated 08/12/21 @ 11:33 by YUE MARTIN) Acute hyponatremia (Resolved) E87.1 AMS (altered mental status) (Acute) R41.82 Weakness (Acute) R53.1 Essential hypertension (Acute) I10 Pansinusitis (Acute) J32.4 COVID-19 (Acute) U07.1 Vital Signs: Vital Signs (72 hours) 08/16/21 10:00 08/16/21 10:30 08/16/21 11:00 Pulse Rate 117 H 113 H 105 H Respiratory Rate 30 H 30 H 29 H Blood Pressure 158/71 143/62 O2 Sat by Pulse Oximetry 88 L 90 L 91 L 08/16/21 11:30 08/16/21 12:00 08/16/21 12:01 Pulse Rate 118 H 128 H 124 H Respiratory Rate 31 H 32 H 33 H Blood Pressure 188/89 O2 Sat by Pulse Oximetry 83 L 91 L 91 L 08/16/21 12:05 08/16/21 12:30 08/16/21 12:34 Pulse Rate 118 H Respiratory Rate 32 H 33 H 32 H Blood Pressure O2 Sat by Pulse Oximetry 90 L 08/16/21 13:00 08/16/21 13:25 08/16/21 13:30 Pulse Rate 138 H 67 Respiratory Rate 33 H 32 H 0 L Blood Pressure 181/71 O2 Sat by Pulse Oximetry 88 L Labs: Laboratory Last Values WBC 8.9 X10^3/uL (3.6-10.0) 08/16/21 04:50 RBC 2.58 X10^6/uL (3.5-5.4) L 08/16/21 04:50 Hgb 8.2 g/dL (12.0-16.0) L 08/16/21 04:50 Hct 24.2 % (36.0-47.0) L 08/16/21 04:50 MCV 93.7 fL (80.0-100.0) 08/16/21 04:50 MCH 31.7 pg (27.0-34.0) 08/16/21 04:50 MCHC 33.8 g/dL (33.0-35.0) 08/16/21 04:50 RDW 15.0 % (11.6-16.5) 08/16/21 04:50 Plt Count 52 X10^3/uL (150.0-450.0) L 08/16/21 04:50 Plt Count Comment Decreased (ADEQUATE) A 08/16/21 04:50 MPV 9.6 fL (7.4-11.0) 08/16/21 04:50 Neut % (Auto) 97.2 % (42.0-75.0) H 08/16/21 04:50 Lymph % (Auto) 1.0 % (21.0-51.0) L 08/16/21 04:50 Morris % (Auto) 1.4 % (0.0-13.0) 08/16/21 04:50 Eos % (Auto) 0.0 % (0.9-2.9) L 08/16/21 04:50 Baso % (Auto) 0.4 % (0.2-1.0) 08/16/21 04:50 Neut # (Auto) 8.7 x10^3/uL (2.2-4.8) H 08/16/21 04:50 Lymph # (Auto) 0.1 X10^3/uL (1.3-2.9) L 08/16/21 04:50 Morris # (Auto) 0.1 x10^3/uL (0.3-0.8) L 08/16/21 04:50 Eos # (Auto) 0.0 x10^3/uL (0.0-0.2) 08/16/21 04:50 Baso # (Auto) 0.0 X10^3/uL (0.0-0.1) 08/16/21 04:50 Absolute Nucleated RBC 0.0 /100WBC 08/16/21 04:50 Total Counted 100 08/16/21 04:50 Neutrophils % (Manual) 99 % (39-76) H 08/16/21 04:50 Band Neutrophils % 1 % (0-10) 08/11/21 04:35 Lymphocytes % (Manual) 1 % (13-43) L 08/16/21 04:50 Monocytes % (Manual) 0 % (4-9) L 08/16/21 04:50 Smudge Cells 2+ A 08/01/21 05:51 Plt Morphology Comment Normal (NORMAL) 08/16/21 04:50 RBC Morphology Normal (NORMAL) 08/16/21 04:50 Daniel Cells Slight A 08/11/21 04:35 Sample Site Lr 08/11/21 09:15 ABG pH 7.530 (7.35-7.45) H 08/11/21 09:15 ABG pCO2 24.0 mmHg (35.0-45.0) L 08/11/21 09:15 ABG pO2 61.0 mmHg (80.0-100.0) L 08/11/21 09:15 ABG HCO3 20.1 mmol/L (22-26) L 08/11/21 09:15 ABG O2 Saturation 94.0 % (90-100) 08/11/21 09:15 ABG Base Excess -1.2 mmol/L (-2.0-2.0) 08/11/21 09:15 Jesse Test Positive 08/11/21 09:15 A-a Gradient 622.0 mmHg 08/11/21 09:15 FiO2 100.0 08/11/21 09:15 Blood Gas Comments Tolerated well. sd 08/11/21 09:15 Sodium 145 mmol/L (136-145) 08/16/21 04:50 Corrected Sodium 147 mmol/L (136-145) H 08/16/21 04:50 Potassium 3.7 mmol/L (3.5-5.1) 08/16/21 04:50 Chloride 112 mmol/L (98-107) H 08/16/21 04:50 Carbon Dioxide 22.9 mmol/L (21-32) 08/16/21 04:50 BUN 61 mg/dL (7-18) H 08/16/21 04:50 Creatinine 1.11 mg/dL (0.55-1.02) H 08/16/21 04:50 Est GFR (MDRD) Af Amer 60 (>60) 08/16/21 04:50 Est GFR (MDRD) Non-Af 49 (>60) L 08/16/21 04:50 Glucose 195 mg/dL (65-99) H 08/16/21 04:50 POC Glucose (mg/dL) 207 mg/dL (65-99) H 08/16/21 11:15 Calcium 8.2 mg/dL (8.5-10.1) L 08/16/21 04:50 Corrected Calcium 9.2 mg/dL (8.5-10.1) 08/16/21 04:50 Magnesium 2.3 mg/dL (1.7-2.9) 08/09/21 04:24 Total Bilirubin 0.80 mg/dL (0.2-1.0) 08/16/21 04:50 AST 46 Units/L (15-37) H 08/16/21 04:50 ALT 29 Units/L (12-78) 08/16/21 04:50 Alkaline Phosphatase 84 Units/L (46-116) 08/16/21 04:50 Creatine Kinase 363 Units/L (26-192) H 07/31/21 19:18 C-Reactive Protein 85.80 mg/L (0-3.0) H 08/07/21 05:10 B-Natriuretic Peptide 234 pg/mL (0-79) H 08/11/21 04:35 Total Protein 4.7 g/dL (6.4-8.2) L 08/16/21 04:50 Albumin 2.7 g/dL (3.4-5.0) L 08/16/21 04:50 Globulin 2.0 g/dL (2.5-4.5) L 08/16/21 04:50 Albumin/Globulin Ratio 1.4 Ratio (1.1-2.1) 08/16/21 04:50 Specimen Type Catherized urine 08/11/21 10:39 Urine Color Yellow (YELLOW) 08/11/21 10:39 Urine Appearance Clear (CLEAR) 08/11/21 10:39 Urine pH 5.0 (5.0 - 8.0) 08/11/21 10:39 Ur Specific Scroggins 1.020 (1.000-1.030) 08/11/21 10:39 Urine Protein 2+ (NEGATIVE) 08/11/21 10:39 Urine Glucose (UA) 2+ (NEGATIVE) 08/11/21 10:39 Urine Ketones 1+ (NEGATIVE) 08/11/21 10:39 Urine Occult Blood Negative (NEGATIVE) 08/11/21 10:39 Urine Nitrite Negative (NEGATIVE) 08/11/21 10:39 Urine Bilirubin Negative (NEGATIVE) 08/11/21 10:39 Urine Urobilinogen Normal (NORMAL) 08/11/21 10:39 Ur Leukocyte Esterase Negative (NEGATIVE) 08/11/21 10:39 Urine RBC 0-2 /HPF (0-3) 08/11/21 10:39 Urine WBC 0-2 /HPF (0-5) 08/11/21 10:39 Ur Squamous Epith Cells Numerous /HPF (NEGATIVE) 08/11/21 10:39 Amorphous Sediment 1+ /HPF (NEGATIVE) 08/02/21 05:00 Urine Bacteria Trace /HPF (NEGATIVE) 08/11/21 10:39 Hyaline Casts Few /LPF (NEGATIVE) 08/11/21 10:39 Urine Mucus Moderate /HPF (NEGATIVE) 08/11/21 10:39 Ur Culture Indicated? No/not indicated 08/11/21 10:39 SARS CoV-2 RNA Rapid MARA Positive (NEGATIVE) A 07/31/21 21:10 Reason For Visit: hypotremia, confusion, weakness, diabetes, Discharge Diagnosis All Active Problems (Updated 08/12/21 @ 11:33 by YUE MARTIN) Hyperglycemia (Acute) HTN (hypertension), malignant (Acute) Hypernatremia (Acute) Pneumonia due to COVID-19 virus (Acute) Dementia (Acute) Fall (Acute) Dysphagia (Acute) Hypoglycemia (Acute) AMS (altered mental status) (Acute) Weakness (Acute) Essential hypertension (Acute) Pansinusitis (Acute) COVID-19 (Acute) Plan of Treatment: Continue with present treatment and follow up plan. Pt is to keep follow up appointment as instructed and take medications as ordered. Discharge Medications Discharge Medications: No Known Drug Allergies Allergy (Unverified 07/31/21 19:05) CONTINUE taking the following medications amlodipine 5 mg PO QHS 07/31/21 [History] calcium 300 mg PO DAILY 07/31/21 [History] ferrous sulfate 325 mg PO DAILY 07/31/21 [History] lisinopril 40 mg PO QHS 07/31/21 [History] metoprolol tartrate 100 mg PO BID 07/31/21 [History] pramipexole 0.25 mg PO TID 07/31/21 [History] rivastigmine tartrate 3 mg PO BID 07/31/21 [History] simvastatin 20 mg PO QHS 07/31/21 [History] sulfamethoxazole-trimethoprim 1 tab PO BID 07/31/21 [History] Discharge Plan Discharge Plan Patient Disposition: 01 HOME, SELF-CARE Condition: Stable Health Concerns: Post Hospitalization: new medications and changes needed to prevent readmission or further decline. Pt educated and given instructions on all concerns. Plan of Treatment: Continue with present treatment and follow up plan. Pt is to keep follow up appointment as instructed and take medications as ordered. Prescriptions: No Action aspirin [Aspir-Low] 81 MG tablet,delayed release (DR/EC) 1 tab PO DAILY RF: 0 glimepiride 2 MG tablet 3 mg PO DAILY RF: 0 hydroxychloroquine 200 MG tablet 1 tab PO DAILY RF: 0 vitamin B complex [Vitamins B Complex] 1 CAP capsule 1 cap PO DAILY RF: 0 metoprolol tartrate 100 mg tablet 100 mg PO BID RF: 0 amlodipine 5 mg tablet 5 mg PO QHS RF: 0 sulfamethoxazole-trimethoprim 800-160 mg tablet 1 tab PO BID RF: 0 simvastatin 20 mg tablet 20 mg PO QHS RF: 0 pramipexole 0.25 mg tablet 0.25 mg PO TID RF: 0 lisinopril 40 mg tablet 40 mg PO QHS RF: 0 rivastigmine tartrate 3 mg capsule 3 mg PO BID RF: 0 ferrous sulfate 325 mg (65 mg iron) Capsule, Extended Release 325 mg PO DAILY RF: 0 calcium 300 mg Tablet,Chewable 300 mg PO DAILY RF: 0 Follow ups/Referrals Follow ups/Referrals: BETO TUTTLE [Primary Care Provider] - 3 days
== END 2021-08-16 16:30 | disposition home or self-care (01) | DRG 177 ==
LOC: ER 18:09 → ICU 21:33
PROVIDERS: ADMIT Internal Medicine; ATTEND Internal Medicine
DX: J01.40 Acute pansinusitis, unspecified; R41.0 Disorientation, unspecified; Z66 Do not resuscitate; E11.649 Type 2 diabetes mellitus with hypoglycemia without coma; R13.11 Dysphagia, oral phase; I10 Essential (primary) hypertension; R53.1 Weakness; Z51.5 Encounter for palliative care; E87.1 Hypo-osmolality and hyponatremia; W18.39XA Other fall on same level, initial encounter; I48.91 Unspecified atrial fibrillation; U07.1 COVID-19; E86.0 Dehydration; J12.82 Pneumonia due to coronavirus disease 2019; E87.0 Hyperosmolality and hypernatremia